=== PATIENT | female | born 1980 | race Caucasian/White ===

== ENCOUNTER 2022-10-12 16:20 | Outpatient (OUT) | payer BC, SELFPAY ==
--- NOTE | 2022-10-12 | XR_ITS ---
[facility] [place] [id number] Patient Name: LAKEISHA STOCKTON MRN: [id number] date: 1980 Sex: F Assigned Patient Location: [facility] Current Patient Location: [facility] Accession/Order Number: [id number] Exam Date: 10/12/2022 16:38 Report Date: 10/12/2022 17:23 At the request of: MIKE GARCIA Procedure: XR hand KATHERYN min 3v EXAM: XR hand KATHERYN min 3v HISTORY: RA COMPARISON: None. TECHNIQUE: AP and lateral views of the bilateral hands were obtained. FINDINGS/IMPRESSION: Normal bony alignment and joint spaces are preserved without evidence of acute fracture, subluxation, significant degenerative or erosive changes. Electronically authenticated by: HAIM OCAMPO Date: 10/12/2022 17:23
== END 2022-10-12 16:21 | disposition home or self-care (01) ==
LOC: RAD 16:25
PROVIDERS: PCP Family Medicine; Visit Provider Internal Medicine Rheumatology
DX: M79.642 Pain in left hand (principal); M79.641 Pain in right hand
CPT/HCPCS: 73130

== ENCOUNTER 2024-01-20 15:48 | Outpatient (OUT) | payer BC, SELFPAY ==
--- NOTE | 2024-01-20 | XR_ITS ---
[facility] [place] [id number] Patient Name: LAKEISHA STOCKTON MRN: [id number] date: 1980 Sex: F Assigned Patient Location: [facility] Current Patient Location: Accession/Order Number: [id number] Exam Date: 01/20/2024 16:10 Report Date: 01/22/2024 05:18 At the request of: MINDI MICHELLE Procedure: XR lumbar spine 2-3V EXAMINATION: XR lumbar spine 2-3V HISTORY: LT Lumbar radiculopathy M54.16 COMPARISON: No relevant comparison available. FINDINGS: BONES: Suspect L5 pars interarticularis defects with suggestion of a fracture line. No anterior listhesis of L5 on S1. Normal height and alignment of vertebral bodies. Mild degenerative facet arthropathy L5-S1. DISC SPACES: No significant disc height narrowing, subluxation, or endplate abnormality. PARASPINOUS: Negative. No paraspinous abnormality is seen. OTHER: Negative. XR/XR lumbar spine 2-3V IMPRESSION: 1. No appreciable acute abnormality. 2. Suspect L5 pars interarticularis defects, but no listhesis or change in alignment. 3. No significant degenerative disc disease. Electronically authenticated by: INÉS CUNNINGHAM Date: 01/22/2024 05:18
== END 2024-01-20 15:49 | disposition home or self-care (01) ==
LOC: RAD 15:51
PROVIDERS: PCP Family Medicine; Visit Provider Family Medicine
DX: M54.16 Radiculopathy, lumbar region (principal)
CPT/HCPCS: 72100

== ENCOUNTER 2024-02-06 14:34 | Outpatient (OUT) | payer BC, SELFPAY ==
[2024-02-06 15:01] LABS: Anion Gap 10.5; BUN Creatinine Ratio 8.3; Calcium 8.7 mg/dL (8.5-10.1); Chloride 105 mmol/L (98-107); Estimated GFR (African America >60 (>=60 mL/min/1.73m^2); Estimated GFR (Non-African Ame 55 (>=60 mL/min/1.73m^2); Glucose 102 mg/dL (74-106); Potassium 3.5 mmol/L (3.5-5.1); Sodium 140 mmol/L (136-145)
== END 2024-02-06 14:35 | disposition home or self-care (01) ==
LOC: LAB 14:35
PROVIDERS: PCP Family Medicine
DX: E87.6 Hypokalemia (principal)
CPT/HCPCS: 36415; 80048

== ENCOUNTER 2024-02-28 08:18 | Emergency (ER) | payer BC, SELFPAY ==
[2024-02-28] VITALS (8 sets, daily range): BP systolic 124–181; BP diastolic 78–132; PULSE 72–142; TEMP 36.8; O2SAT 95–100; BMI 27.4
--- NOTE | 2024-02-28 08:29 | ECG_ITS ---
[facility] Test Date: 2024-02-28 Pat Name: LAKEISHA STOCKTON Department: Room: - Gender: Female Director Global Development: : 1980 Requested By: MINDI MICHELLE Order Number: [id number] Reading MD: PHILIPP LOWERY Measurements Intervals [place] Rate: 98 P: 47 AL: 152 QRS: -12 QRSD: 68 T: 62 QT: 332 QTc: 387 Interpretive Statements 1100 Sinus rhythm 1108 Marked sinus arrhythmia 8102 Low QRS voltage in chest leads 9150 abnormal ECG No previous ECG available for comparison Electronically Signed On 02-28-2024 19:47:00 EST by PHILIPP LOWERY
--- NOTE | 2024-02-28 08:38 | ED_ITS ---
HPI HPI - General Adult General Chief complaint: Anxiety Stated complaint: MIGRANE DIZZINESS Time Seen by Provider: 02/28/24 08:25 Source: patient Mode of arrival: walk-in Limitations: no limitations History of Present Illness HPI narrative: 43-year-old female presents to the emergency department for a headache. The patient states she woke up with it this morning, she did not have it last night when she went to bed. No trauma fever or stiff neck. She has been having these headaches for years. She had COVID 4 years ago and since then has had bodyaches including pain in her hips. She has seen numerous specialist at the [facility] for this issue. Related Data Home Medications ?Medication ?Instructions ?Recorded ?Confirmed amoxicillin 500 mg capsule 500 mg PO TID 02/28/24 02/28/24 Allergies Allergy/AdvReac Type Severity Reaction Status Date / Time No Known Drug Allergies Allergy Verified 02/28/24 08:23 Opioid HPI Opioid Management Most Recent Opioid Data: Last Pain Scale 0 02/28/24 09:47 02/28/24 Last ED Pain Assessment 02/28/24 09:47 Last MAR Pain Assessment 02/28/24 08:56 Review of Systems ROS Narrative A ten point review of systems is negative except as noted above. Exam Narrative Exam Narrative: Nurses note and vital signs reviewed and patient is not hypoxic. General: The patient appears in no apparent distress. Patient is tearful Skin: Warm, dry, no pallor noted. There is no rash noted. Head: Normocephalic, atraumatic; neck supple, no nuchal rigidity Eye: Normal conjunctiva, no drainage, EOMI. PERRL Ears, Nose, Mouth, and Throat: oral mucosa is moist. Nares patent. Cardiovascular: Regular Rate and Rhythm Respiratory: Patient is in no distress, no accessory muscle use, lungs are clear to auscultation, no wheezing, rales or rhonchi Back: non-tender GI: Soft and nontender Musculoskeletal: The patient has no evidence of calf tenderness, no pitting edema, symmetrical pulses noted bilaterally Neurological: A&O, normal speech Psychiatric: Cooperative Constitutional Vital Signs, click to edit/add: Last Vital Signs Temp 98.3 F 02/28/24 08:23 Pulse 72 02/28/24 09:47 Resp 16 02/28/24 09:47 BP 124/78 02/28/24 09:47 Pulse Ox 99 01/14/25 09:47 O2 Del Method Room Air 02/28/24 09:47 Course Vital Signs Vital signs: Vital Signs Temperature 98.3 F 02/28/24 08:23 Pulse Rate 142 H 02/28/24 08:23 Respiratory Rate 24 H 02/28/24 08:23 Blood Pressure 146/82 H 02/28/24 08:23 Pulse Oximetry 100 02/28/24 08:23 Oxygen Delivery Method Room Air 02/28/24 08:23 Temperature 98.3 F 02/28/24 08:23 Pulse Rate 72 02/28/24 09:47 Respiratory Rate 16 02/28/24 09:47 Blood Pressure 124/78 02/28/24 09:47 Pulse Oximetry 99 02/28/24 09:47 Oxygen Delivery Method Room Air 02/28/24 09:47 Medical Decision Making MDM Narrative Medical decision making narrative: Blood work is normal. Her symptoms resolved completely with the medications given, Toradol, Solu-Medrol, Benadryl, and Zofran. She was also given IV fluids. She is asymptomatic and is able to be discharged home. I have no clinical suspicion of meningitis or acute intracranial pathology. Treatment diagnosis and follow-up were discussed with the patient. Differential Diagnosis Differential Diagnosis: Migraine headache, anxiety, intracranial hemorrhage, meningitis Lab Data Lab results reviewed: Yes I reviewed the patient's lab results Labs: Lab Results 02/28/24 Range/Units 08:45 WBC 6.4 (4.0-11.0) 10^3/uL RBC 4.93 (4.20-5.40) 10^6/uL Hgb 15.0 (12.0-16.0) g/dL Hct 44.0 (36.0-48.0) % MCV 89.2 (81.0-99.0) fL MCH 30.4 (26.7-34.0) pg MCHC 34.1 (29.9-35.2) g/dL RDW 12.2 (11.0-15.0) % Plt Count 279 (150-450) 10^3/uL MPV 9.0 L (9.5-13.5) fL Neut % (Auto) 55.5 (43.0-75.0) % Lymph % (Auto) 39.2 (20.5-60.0) % [place] % (Auto) 4.0 (1.7-12.0) % Eos % (Auto) 0.8 L (0.9-7.0) % Baso % (Auto) 0.3 (0.2-2.0) % Neut # (Auto) 3.6 (1.4-6.5) 10^3/uL Lymph # (Auto) 2.5 (1.2-3.8) 10^3/uL [place] # (Auto) 0.3 (0.3-0.8) 10^3/uL Eos # (Auto) 0.1 (0.0-0.7) 10^3/uL Baso # (Auto) 0.0 (0.0-0.1) 10^3/uL Abs Immat Gran (auto) 0.01 (0.00-0.03) 10^3/uL Imm/Tot Granulo (auto) 0.2 (0.0-0.5) % Sodium 141 (136-145) mmol/L Potassium 3.5 (3.5-5.1) mmol/L Chloride 105 (98-107) mmol/L Carbon Dioxide 28.2 (21.0-32.0) mmol/L Anion Gap 11.3 BUN 12.0 (7.0-18.0) mg/dL Creatinine 1.11 H (0.55-1.02) mg/dL Est GFR ( Amer) >60 (>=60 mL/min/1.73m^2) Est GFR (Non-Af Amer) 53 L (>=60 mL/min/1.73m^2) BUN/Creatinine Ratio 10.8 Glucose 117 H (74-106) mg/dL Calcium 8.6 (8.5-10.1) mg/dL Discharge Plan Discharge Chief Complaint: Anxiety Clinical Impression: Headache Patient Disposition: Home, Self-Care Time of Disposition Decision: 09:56 Condition: Good Mode of Transportation: Private Vehicle Prescriptions / Home Meds: No Action amoxicillin 500 mg capsule 500 mg PO TID Print Language: Chinese Instructions: Acute Headache (ED) Referrals: Jenna Lambert MD [Primary Care Provider] - 1 week
--- OUTSIDE RECORDS SUMMARY | 2024-02-28 08:48 | XMS_ITS | CCD ---
Author Organization [facility] ion Partnership [facility] Care Team Providers Care Flour Mixer Name Role Phone Viviana PRESTON, Mindi Primary Care Provider MINDI MICHELLE Primary Care Unavailable Mindi Michelle MD Primary Care Provider Gustavo SIMS.SIGNALMAN, Aysha Unavailable FAWWAD, RIVERO H Admitting Unavailable FAWWAD, RIVERO H Attending Unavailable FAWWAD, RIVERO H Primary Care Unavailable CHERLY, DR SARAH Goodson Consulting Unavailable FAWWAD, RIVERO H Consulting Unavailable MICHELLE, DR MINDI Reeves Admitting Unavailable MICHELLE, DR MINDI Reeves Attending Unavailable FAWWAD, RIVERO H Primary Care Unavailable CHERYL, DR SARAH Goodson Consulting Unavailable MICHELLE, DR MINDI Reeves Consulting Unavailable FAWWAD, RIVERO H Admitting Unavailable FAWWAD, RIVERO H Attending Unavailable FAWWAD, RIVERO H Primary Care Unavailable DR INÉS CUNNINGHAM Consulting Unavailable FAWWAD, RIVERO H Consulting Unavailable FAWWAD, RIVERO H Admitting Unavailable FAWWAD, RIVERO H Attending Unavailable VIVIANA, DR MINDI Reeves Primary Care Unavailable FAWWAD, RIVERO H Consulting Unavailable FAWWAD, RIVERO H Admitting Unavailable FAWWAD, RIVERO H Attending Unavailable FAWWAD, RIVERO H Primary Care Unavailable FAWWAD, RIVERO H Consulting Unavailable FAWWAD, RIVERO H Admitting Unavailable FAWWAD, RIVERO H Attending Unavailable FAWWAD, RIVERO H Primary Care Unavailable FAWWAD, RIVERO H Admitting Unavailable FAWWAD, RIVERO H Attending Unavailable FAWWAD, RIVERO H Primary Care Unavailable FAWWAD, RIVERO H Admitting Unavailable FAWWAD, RIVERO H Attending Unavailable FAWWAD, RIVERO H Primary Care Unavailable DR SARAH LUNA V Consulting Unavailable STEPHANIE, RIVERO H Consulting Unavailable Liyah Francis Unavailable Mindi Michelle MD Primary Care Provider Gustavo COPE, Aysha Unavailable Shaikh Gillespie MD Unavailable Mindi Michelle Unavailable Cassandra Felipa Unavailable Mindi Michelle Primary Care Unavailable Scott Martinez Attending Unavailable Scott Martinez Admitting Unavailable Liyah Francis Attending Unavailable Liyah Francis Admitting Unavailable Mindi Michelle MD Primary Care Provider VIVIANA MINDI E Referring Unavailable MICHELLE, MINDI E Primary Care Unavailable JOSE LUISML BORDEN Attending Unavailable MICHELLE, MINDI E Referring Unavailable MICHELLE, MINDI E Primary Care Unavailable JOSE LUIS, ML Durán Attending Unavailable MICHELLE, MINDI E Referring Unavailable MICHELLE, MINDI E Primary Care Unavailable JOSE LUIS, ML Durán Attending Unavailable MICHELLE, MINDI E Referring Unavailable MICHELLE, MINDI E Primary Care Unavailable JOSE LUIS, ML Durán Attending Unavailable MICHELLE, MINDI E Referring Unavailable MICHELLE, MINDI E Primary Care Unavailable JOSE LUIS, ML Durán Attending Unavailable MICHELLE, MINDI E Referring Unavailable MICHELLE, MINDI E Primary Care Unavailable JOSE LUIS, ML Durán Attending Unavailable MICHELLE, MINDI E Referring Unavailable MICHELLE, MINDI E Primary Care Unavailable JOSE LUIS, ML Durán Attending Unavailable MICHELLE, MINDI E Referring Unavailable MICHELLE, MINDI E Primary Care Unavailable JOSE LUSI, ML Durán Attending Unavailable CLARA, RUI BRISEIDA Referring Unavaila ble CHEN BALLARD Attending Unavailable MICHELLE, MINDI E Primary Care Unavailable MICHELLE, MINDI E Primary Care Unavailable LOCHAN, RUI BRISEIDA Referring Unavaila ble LOCHAN RUI BRISEIDA Attending Unavaila ble MICHELLE, MINDI E Primary Care Unavailable Allergies Allergy Classification Reported Allergen(s) Allergy Type Date of Onset Reaction(s) Facility (6 sources) patient allergy list reviewed by nurse or physicia Propensity to adverse reactions 8 Comment:Done Syndero Other (6 sources) Allergies Reconciled Propensity to adverse reactions 2 Unknown Syndero Other Medications Current Medications Medication Drug Class(es) Dates Sig (Normalized) Sig (Original) amoxicillin 500 mg oral capsule (6 sources) Penicillin-class Antibacterial Start: 05-12-2022 take 1 capsule by mouth every eight hours Amoxicillin 500 MG 1 capsule Orally three times a day for 10 day(s) Apr, Active Start: 12-01-2018 take 1 tablet by thuy th every twelve hours Amoxicillin 875 MG 1 tablet Orally every 12 hrs for 7 days Nov, Not-Taking benzonatate 200 mg oral capsule (3 sources) Non-narcotic Antitussive Start: 05-12-2022 take 1 capsule by mouth every eight hours Benzonatate 200 MG 1 capsule Orally Three times a day Apr, Active 24 hr buPROPion hydrochloride 300 mg extended release oral tablet (20 sources) Aminoketone Start: 06-24-2023 take 1 tablet by mouth once daily in the morning Bupropion Hcl Active MG PO June 24, 2023 12:00am FreeTextSig: TAKE 1 TABLET BY MOUTH EVERY DAY IN THE MORNING FOR 90 DAYS; Note: Source Status: Start; Refills: 0; Qty: 90 Tablet; Provider: Viviana West ( ) Start: 01-05-2021 End: 01-25-2024 buPROPion XL (WELLBUTRIN XL) 150 mg 24 hr tablet 01/05/2021 01/25/2024 Discontinued (Discontinued by another Health Care Provider) buPROPion HCl ER (XL) 300 MG TAKE 1 TABLET BY MOUTH EVERY DAY IN THE MORNING FOR 90 DAYS for 90 Active Wellbutrin Activ e ciprofloxacin 3 mg/ml ophthalmic solution (3 sources) Quinolone Antimicrobial Start: 05-12-2022 take 1 drop(s) into the eye(s) every four hours Ciloxan 0.3 % 1 drop each eye every 4 hrs for 5 day(s) Apr, Active clonazePAM 0.5 mg oral tablet (20 sources) Benzodiazepine Start: 06-24-2023 take 1 tablet by mouth once daily as needed for anxiety Clonazepam Active 0.5 MG PO June 24, 2023 12:00am FreeTextSi tablet Orally Once a day, as needed for anxiety; Note: Source Status: Refill; Refills: 1; Provider: Viviana Reeves Start: 02-21-2023 take 1 tablet by thuy th once daily as needed for anxiety clonazePAM 0.5 MG 1 tablet Orally Once a day, as needed for anxiety for 30 days Feb, Active Start: 01-21-2023 take 1 tablet by thuy th once daily as needed for anxiety clonazePAM 0.5 MG 1 tablet Orally Once a day, as needed for anxiety for 30 days Jan, Active Start: 12-24-2022 take 1 tablet by thuy th once daily as needed for anxiety clonazePAM 0.5 MG 1 tablet Orally Once a day, as needed for anxiety for 30 days Dec, Active Start: 11-25-2022 take 1 tablet by thuy th once daily as needed for anxiety clonazePAM 0.5 MG 1 tablet Orally Once a day, as needed for anxiety for 30 days Nov, Active Start: 04-19-2021 take 1 tablet by thuy th once daily as needed for anxiety clonazePAM 0.5 MG 1 tablet Orally Once a day, as needed for anxiety for 30 days Sep, Active Comment on above: TAKE 1/2-1 TABLET ON CE DAILY NEEDED FOR ANXIETY Do not start before April 19, 2021. gabapentin 100 mg oral capsule (16 sources) Anti-epileptic Agent Start: 06-24-2023 take 1 capsule by mouth three times daily Gabapentin Active 100 MG PO Three times daily June 24, 2023 12:00am FreeTextSig: TAKE 1 CAPSULE BY MOUTH 3 TIMES A DAY; Note: Source Status: Taking; Refills: 2; Qty: 90 Capsule; Provider: Viviana West ( ) take 1 capsule by mo ut three times daily Gabapentin 100 MG TAKE 1 CAPSULE BY MOUT H 3 TIMES A DAY for 30 Active lisdexamfetamine dimesylate 40 mg oral capsule (17 sources) Central Nervous System Stimulant Start: 12-27-2023 take 1 capsule by mouth once daily in the morning lisdexamfetamine (VYVANSE) 40 mg capsule Take 40 mg by mouth every morning. 12/27/2023 Active Start: 04-29-2023 End: 05-31-2023 take 1 capsule by mouth once daily Lisdexamfetamine (Vyvanse) 30 mg capsule Active 30 MG PO Daily May 31, 2023 Start: 01-21-2023 take 1 capsule by mo uth every twenty-four hours Vyvanse 30 MG 1 capsule in the morning Orally Once a day for 30 days Jan, Active Start: 12-24-2022 take 1 capsule by mo uth every twenty-four hours Vyvanse 30 MG 1 capsule in the morning Orally Once a day for 30 days JUDY Dec, Active Start: 11-25-2022 take 1 capsule by mo uth every twenty-four hours Vyvanse 30 MG 1 capsule in the morning Orally Once a day for 30 days Nov, Active Start: 10-25-2022 take 1 capsule by mo uth every twenty-four hours Vyvanse 30 MG 1 capsule in the morning Orally Once a day for 30 days Oct, Active Start: 09-27-2022 take 1 capsule by mo uth every twenty-four hours Vyvanse 30 MG 1 capsule in the morning Orally Once a day for 30 days Sep, Active Start: 08-24-2022 take 1 capsule by mo uth every twenty-four hours Vyvanse 30 MG 1 capsule in the morning Orally Once a day for 30 days Aug, Active Start: 07-26-2022 take 1 capsule by mo uth every twenty-four hours Vyvanse 30 MG 1 capsule in the morning Orally Once a day for 30 days Jul, Active Start: 07-01-2022 take 1 capsule by mo uth every twenty-four hours Vyvanse 30 MG 1 capsule in the morning Orally Once a day for 30 days June, Active methylPREDNISolone 4 mg oral tablet (3 sources) Corticosteroid Start: 2021 Medrol 4 MG as directed Orally Nov, Active Naltrexone (2 sources) Opioid Antagonist Start: 02-02-2024 naltrexone capsule 1.5 mg (CPD) Indications: Diffuse pain , Chronic fatigue and malaise , Brain fog , Post-acute sequelae of COVID-19 (PASC) , Memory deficit Take 1 tablet (1.5 mg) per day for 3 days, then 2 tablets (3 mg) per day for 3 days, then 3 tablets (4.5 mg) per day until completing bottle. 90 capsule 02/02/2024 Active ondansetron 4 mg oral tablet (14 sources) Serotonin-3 Receptor Antagonist Start: 04-21-2023 End: 04-21-2023 take 4 mg by mouth three times daily Ondansetron Hcl Active 4 MG PO Three times daily April 21, 2023 10:33am Start: 07-01-2022 take 1 tablet by thuy th three times daily as needed Ondansetron HCl 4 MG 1 tablet Orally tid prn for 4 June, Active microencapsulated potassium chloride 20 meq extended release oral tablet (1 source) Start: 01-27-2024 End: 01-30-2024 take 2 tablets by mouth once daily potassium chloride ER (KLOR-CON) 20 mEq tablet Indications: Low serum potassium , Abnormal laboratory test result Take 2 tablets by mouth once daily for 3 days. 6 tablet 01/27/2024 01/30/2024 Active rizatriptan 10 mg oral tablet (20 sources) Serotonin-1b and Serotonin-1d Receptor Agonist Start: 12-09-2020 take 1 tablet by mouth every two hours as needed for headache rizatriptan (MAXALT) 10 mg tablet Indications: Migraine without aura and without status migrainosus, not intractable Take 1 tablet by mouth as needed. AT ONSET OF HEADACHE. MAY REPEAT AFTER 2 HOURS. DO NOT EXCEED 30 MG PER DAY. 9 tablet 1 12/09/2020 Active Comment on above: Take 1 tablet by thuy th as needed. AT ONSET OF HEADACHE. MAY REPEAT AFTER 2 HOURS. DO NOT EXCEED 30 MG PER DAY. Completed/Discontinued Medications Medication Drug Class(es) Dates Sig (Normalized) Sig (Original) [id number] 200 actuat albuterol 0.09 mg/actuat metered dose inhaler (3 sources) beta2-Adrenergi c Agonist Start: 12-01-2018 take 2 puff(s) by inhalation every four hours as needed Albuterol Sulfate HFA 108 (90 Base) MCG/ACT 2 puffs as needed Inhalation every 4 hrs Nov, Not-Taking 24 hr amphetamine aspartate 3.75 mg / amphetamine sulfate 3.75 mg / dextroamphetamine saccharate 3.75 mg / dextroamphetamine sulfate 3.75 mg extended release oral capsule (5 sources) Central Nervous System Stimulant Start: 04-21-2023 End: 04-29-2023 take 1 capsule by mouth once daily, then take 1 capsule by mouth every twenty-four hours Dextroamphetamine- Amphetamine (Adderall Xr) 15 mg capsule,extended release 24hr Discontinued 15 MG PO Daily April 21, 2023 April 29, 2023 10:46am Start: 02-28-2023 [facility] Adderall XR 15 MG 1 capsule in the morning Orally Once a day for 30 days Feb, Active cefTRIAXone (16 sources) Cephalosporin Antibacterial Start: 01-13-2017 ROCEPHIN per 250 mg Dec, 250 mg codeine phosphate 2 mg/ml / guaiFENesin 20 mg/ml oral solution (3 sources) Opioid Agonist Start: 12-01-2018 take 10 mL by mouth every six hours as needed guaiFENesin AC 100-10 MG/5ML 10 ml as needed Orally every 6 hrs Nov, Not-Taking cyclobenzaprine (3 sources) Muscle Relaxant Flexeril Not-Taking FLUoxetine 40 mg oral capsule (8 sources) Serotonin Reuptake Inhibitor Start: 08-25-2021 End: 01-25-2024 take 1 capsule by mouth once daily FLUoxetine (PROZAC) 40 mg capsule Indications: Generalized anxiety disorder TAKE 1 CAPSULE BY MOUTH ONCE DAILY 90 capsule 1 02/22/2022 01/25/2024 Discontinued (Discontinued by another Health Care Provider) Start: 06-03-2020 FLUoxetine (TX OZAC) capsule 20 mg Comment on above: [facility] TAKE 1 CAPSULE BY [facility] ONCE DAILY fluticasone propionate 0.05 mg/actuat metered dose nasal spray (3 sources) Corticosteroid Start: 12-02-19 take 1 spray(s) nasal route once daily Fluticasone Propionate 50 MCG/ACT 1 spray in each nostril Nasally Once a day for 21 days Nov, Not-Taking oseltamivir 75 mg oral capsule (3 sources) Neuraminidase Inhibitor Start: 12-02-19 take 1 capsule by mouth every twelve hours Tamiflu 75 MG 1 capsule Orally Twice a day for 5 day(s) Nov, Not-Taking propranolol hydrochloride 20 mg oral tablet (7 sources) beta-Adrenergic Anuradha Start: 12-10-19 End: 01-25-20 take 1 tablet by mouth twice daily propranolol (INDERAL) 20 mg tablet Take 1 tablet by mouth twice daily. 60 tablet 1 12/09/2020 01/25/2024 Discontinued (Discontinued by another Health Care Provider) Comment on above: Take 1 tablet by thuy th twice daily. 50 ml sodium chloride 9 mg/ml injection (1 source) Start: 06-04-19 End: 06-04-19 0.9 % sodium chloride bolus topiramate 50 mg oral tablet (8 sources) Start: 07-28-19 End: 01-25-20 take 1 tablet by mouth once daily topiramate (TOPAMAX) 50 mg tablet Indications: Generalized anxiety disorder Take 1 tablet by mouth once daily. 90 tablet 1 09/03/2021 01/25/2024 Discontinued (Discontinued by another Health Care Provider) Comment on above: TAKE 1 TABLET BY THUY TH EVERY DAY Take 1 tablet by thuy th once daily. ZOLMitriptan (3 sources) Serotonin-1b and Serotonin-1d Receptor Agonist Zomig Not-Taking Problems Active Problems Problem Classification Problem Date Documented Date Episodic/Chronic Adjustment disorders (1 source) Adjustment disorder with mixed anxiety and depressed mood; Translations: [Adjustment disorder with mixed anxiety and depressed mood] Onset: 03-23-2023 Chronic Anxiety disorders (17 sources) Generalized anxiety disorder; Translations: [Generalized anxiety disorder] Chronic Attention-deficit, conduct, and disruptive behavior disorders (3 sources) Attention-deficit hyperactivity disorder, unspecified type; Translations: [Attention deficit disorder with hyperactivity] 04-29-2023 Chronic Bacterial infection; unspecified site (6 sources) Chlamydial infection; Translations: [Chlamydial infection, unspecified] Episodic Disorders usually diagnosed in infancy, childhood, or adolescence (4 sources) Adult attention deficit hyperactivity disorder ; Translations: [Other specified behavioral and emotional disorders with onset usually occurring in childhood and adolescence] Chronic Essential hypertension (16 sources) Elevated blood pressure; Translations: [Essential (primary) hypertension] Chronic Fluid and electrolyte disorders (1 source) Low serum potassium level - finding; Translations: [Hypokalemia] 01-27-2024 Episodic Genitourinary symptoms and ill-defined conditions (6 sources) Dysuria; Translations: [Dysuria] Episodic Headache; including migraine (20 sources) Chronic intractable migraine without aura; Translations: [Chronic migraine without aura, intractable, without status migrainosus] Onset: 08-22-2006 09-21-2019 Chronic Inflammation; infection of eye (except that caused by tuberculosis or sexually transmitteddisease) (1 source) Unspecified conjunctivitis Episodic Inflammatory diseases of female pelvic organs (6 sources) Acute vaginitis; Translations: [Acute vaginitis] Episodic Malaise and fatigue (4 sources) Chronic fatigue, unspecified; Translations: [Malaise and fatigue] Onset: 12-11-2020 01-25-2024 Chronic Malaise and fatigue (11 sources) Other fatigue; Translations: [Fatigue] Onset: 12-04-2020 Episodic Menstrual disorders (6 sources) Excessive and frequent menstruation; Translations: [Excessive and frequent menstruation with regular cycle] Onset: 01-23-2015 Chronic Miscellaneous mental health disorders (1 source) Primary insomnia; Translations: [PRIMARY INSOMNIA] Onset: 12-25-2020 Chronic Mood disorders (7 sources) Dysthymia; Translations: [Dysthymic disorder] Onset: 01-23-2015 Chronic Mood disorders (1 source) Disturbance in mood; Translations: [Emotional lability] 01-25-2024 Episodic Other and unspecified benign neoplasm (6 sources) Benign neoplasm of pituitary gland; Translations: [Benign neoplasm of pituitary gland] Episodic Other circulatory disease (6 sources) Elevated blood-pressure reading without diagnosis of hypertension; Translations: [Elevated blood-pressure reading, without diagnosis of hypertension] Episodic Other connective tissue disease (5 sources) Pain in right hand; Translations: [PAIN IN RIGHT HAND] Onset: 06-16-2021 Episodic Other connective tissue disease (5 sources) Unspecified symptoms and signs involving the nervous system; Translations: [UNS SYMPTOMS SIGNS INVOLVING NS] Onset: 04-02-2021 Episodic Other connective tissue disease (6 sources) Pain in right hand; Translations: [Pain in right hand] Episodic Other connective tissue disease (2 sources) Disorder of nervous system; Translations: [Unspecified symptoms and signs involving the nervous system] Episodic Other connective tissue disease (1 source) Neuralgia; Translations: [Neuralgia and neuritis, unspecified] 01-25-2024 Episodic Other connective tissue disease (1 source) Sensation of heaviness in limbs; Translations: [Other symptoms and signs involving the musculoskeletal system] 01-25-2024 Episodic Other endocrine disorders (6 sources) Hyperpituitarism; Translations: [Hyperfunction of pituitary gland, unspecified] Onset: 10-20-2007 Chronic Other hereditary and degenerative nervous system conditions (6 sources) Other specified forms of tremor; Translations: [OTHER SPECIFIED FORMS OF TREMOR] Onset: 03-30-2021 Chronic Other hereditary and degenerative nervous system conditions (12 sources) Resting tremor; Translations: [Other specified forms of tremor] Chronic Other hereditary and degenerative nervous system conditions (6 sources) Tremor; Translations: [Other specified forms of tremor] Chronic Other infections; including parasitic (2 sources) Late effects of other and unspecified infectious and parasitic diseases; Translations: [Post-acute sequelae of COVID-19 (PASC)] 01-25-2024 Chronic Other lower respiratory disease (1 source) Nodule of lung; Translations: [Solitary pulmonary nodule] Episodic Other lower respiratory disease (6 sources) Solitary nodule of lung; Translations: [Solitary pulmonary nodule] Episodic Other lower respiratory disease (6 sources) Cough; Translations: [Cough, unspecified] Episodic Other lower respiratory disease (6 sources) Disorder of respiratory system; Translations: [Respiratory disorder, unspecified] Episodic Other nervous system disorders (1 source) Poor concentration; Translations: [Attention and concentration deficit] 01-25-2024 Chronic Other nervous system disorders (1 source) Cognitive deficit in communication skills; Translations: [Cognitive communication deficit] 01-25-2024 Chronic Other nervous system disorders (10 sources) Other symptoms and signs involving cognitive functions and awareness; Translations: [OTH SX SIGNS COG FUNC AND AWARENESS] Onset: 03-30-2021 Episodic Other nervous system disorders (8 sources) Impaired cognition; Translations: [Other symptoms and signs involving cognitive functions and awareness] 01-25-2024 Episodic Other nervous system disorders (2 sources) Burning sensation; Translations: [Other disturbances of skin sensation] 01-25-2024 Episodic Other nervous system disorders (1 source) Paresthesia; Translations: [Paresthesia of skin] 02-25-2024 Episodic Other non-traumatic joint disorders (1 source) Pain in unspecified joint; Translations: [Pain in unspecified joint] Onset: 10-05-2022 Episodic Other non-traumatic joint disorders (1 source) Multiple joint pain; Translations: [Pain in unspecified joint] 01-25-2024 Episodic Other non-traumatic joint disorders (1 source) Hip pain; Translations: [Pain in unspecified hip] 01-25-2024 Episodic Other nutritional; endocrine; and metabolic disorders (18 sources) Body mass index 25-29 - overweight; Translations: [Body mass index (BMI) 29.0-29.9, adult] Onset: 06-19-2015 Episodic Other nutritional; endocrine; and metabolic disorders (12 sources) Overweight; Translations: [Overweight] Onset: 06-19-2015 Episodic Other screening for suspected conditions (not mental disorders or infectious disease) (4 sources) Encounter for screening mammogram for malignant neoplasm of breast; Translations: [ENC SCR MAMMO MALIG NEOPLASM BREAST] Onset: 11-05-2021 Episodic Other upper respiratory infections (6 sources) Acute sinusitis; Translations: [Acute sinusitis, unspecified] Episodic Otitis media and related conditions (1 source) Otitis media, unspecified, left ear Episodic Pneumonia (except that caused by tuberculosis or sexually transmitted disease) (6 sources) Pneumonia; Translations: [Pneumonia, unspecified organism] Episodic Residual codes; unclassified (4 sources) Obstructive sleep apnea (adult) (pediatric); Translations: [OBSTRUCTIVE SLEEP APNEA] Onset: 01-05-2021 Chronic Residual codes; unclassified (6 sources) Sleep apnea; Translations: [Sleep apnea, unspecified] Chronic Residual codes; unclassified (1 source) Hypersomnia; Translations: [Hypersomnia, unspecified] 01-25-2024 Chronic Residual codes; unclassified (1 source) Family history of malignant neoplasm of digestive organs; Translations: [FAM HX MALIG NEOPLASM DIGESTIV ORGN] Onset: 11-10-2021 Episodic Residual codes; unclassified (1 source) Family history of malignant neoplasm of breast; Translations: [FAMILY HX MALIG NEOPLASM OF BREAST] Onset: 11-10-2021 Episodic Residual codes; unclassified (6 sources) Family history of malignant neoplasm of gastrointestinal tract; Translations: [Family history of malignant neoplasm of digestive organs] Episodic Residual codes; unclassified (2 sources) Diffuse pain; Translations: [Pain, unspecified] 01-25-2024 Episodic Residual codes; unclassified (1 source) Disturbance in sleep behavior; Translations: [Sleep disorder, unspecified] 01-25-2024 Episodic Residual codes; unclassified (1 source) Activity intolerance; Translations: [Other general symptoms and signs] 01-25-2024 Episodic Residual codes; unclassified (2 sources) Memory impairment; Translations: [Other amnesia] 01-25-2024 Episodic Residual codes; unclassified (1 source) Pain, unspecified; Translations: [Diffuse pain] Onset: 02-02-2024 Episodic Sprains and strains (1 source) Strain of unspecified muscle, fascia and tendon at wrist and hand level, right hand, initial encounter Episodic Thyroid disorders (10 sources) Thyroid nodule; Translations: [Nontoxic single thyroid nodule] Onset: 09-18-2010 09-18-2010 Chronic Unclassified (2 sources) CONTACT W/AND (SUSP) EXPOS COVID-19; Translations: [CONTACT W/AND (SUSP) EXPOS COVID-19] Onset: 02-15-2021 Unclassified (1 source) Pain in right hand; Translations: [Pain in right hand] Onset: 2021 Unclassified (1 source) Post-acute sequelae of COVID-19 (PASC); Translations: [Post-acute sequelae of COVID-19 (PASC)] Onset: 02-02-2024 Viral infection (1 source) Disease caused by 2019-nCoV; Translations: [COVID-19] Episodic Viral infection (13 sources) COVID-19; Translations: [Disease caused by 2019-nCoV] Onset: 02-15-2021 Past or Other Problems Problem Classification Problem Date Documented Date Episodic/Chronic Administrative/socia l admission (6 sources) Repeated prescription; Translations: [Encounter for issue of repeat prescription] Onset: 07-16-2015 Episodic Cardiac dysrhythmias (6 sources) Tachycardia; Translations: [Tachycardia, unspecified] Onset: 03-15-2017 Episodic Nonmalignant breast conditions (12 sources) Lactocele; 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] Onset: 08-22-2006 Episodic Other and unspecified benign neoplasm (10 sources) Pituitary adenoma; Translations: [Benign neoplasm of pituitary gland] Onset: 11-05-2009 11-05-2009 Episodic Other and unspecified benign neoplasm (1 source) Benign neoplasm of pituitary gland; Translations: [BENIGN NEOPLASM OF PITUITARY GLAND] Onset: 04-02-2021 Episodic Other and unspecified benign neoplasm (6 sources) Benign neoplasm of pituitary gland and craniopharyngeal duct; 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)] Onset: 12-01-2012 Episodic Other complications of (6 sources) High risk ; Translations: [Supervision of high risk , unspecified, unspecified trimester] Onset: 10-06-2006 Episodic Other lower respiratory disease (4 sources) Respiratory disorder, unspecified; Translations: [RESPIRATORY DISORDER UNSPECIFIED] Onset: 03-24-2021 Episodic Other nervous system disorders (6 sources) Tremor; Translations: [Tremor, unspecified] Onset: 03-15-2017 Episodic Residual codes; unclassified (6 sources) Insomnia; Translations: [Insomnia, unspecified] Onset: 12-01-2012 Episodic Unclassified (1 source) CONTACT W/AND (SUSP) EXPOS COVID-19; Translations: [CONTACT W/AND (SUSP) EXPOS COVID-19] Onset: 02-09-2021 Unclassified (1 source) Acute cough R05.1 Unclassified (2 sources) Vigu-SIYAL-52 condition U09.9 Unclassified (6 sources) 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 Unclassified (6 sources) Surveillance of intrauterine device contraception done; Translations: [Surveillance of previously prescribed intrauterine contraceptive device] Onset: 10-20-2007 Unclassified (6 sources) Encounter for insertion or removal of intrauterine contraceptive device; Translations: [Encounter for insertion or removal of intrauterine contraceptive device] Onset: 07-04-2007 Unclassified (6 sources) Routine follow-up; Translations: [Routine follow-up] Onset: 06-13-2007 Results Test Name Value Interpretation Reference Range Facility 25(OH)D3 [facility] 2023 25-hydroxyvitamin D3 [Mass/Vol] 21.4 ng/mL Low 31.0-80.0 [facility] Comment on above: Order Comment: Speci men Type: BLOOD SPECIMEN Ordering Facility: [facility] Address: [address] [place] [address] Performed By: #### 2 276-4, 68632-6, 76321-4, 3016-3 #### [facility] CLIA [id number] [address] [place] [address] [place] CBC W Auto Differential pane l (Bld)on 01-25-2024 Basophils (Bld) [#/Vol] 0.05 10*3/uL Normal <0.11 [facility] Comment on above: Order Comment: Speci men Type: BLOOD SPECIMEN Ordering Facility: [facility] Address: [address] [place] [address] Performed By: #### 5 7021-8 #### [facility] CLIA [id number] [address] [place] [address] [place] Basophils/100 WBC (Bld) 0.5 % Normal [facility] Comment on above: Order Comment: Speci men Type: BLOOD SPECIMEN Ordering Facility: [facility] Address: [address] [place] [address] Performed By: #### 5 7021-8 #### [facility] CLIA [id number] [address] [place] [address] [place] Differential cell count method Nom (Bld) Auto Normal [facility] Comment on above: Order Comment: Speci men Type: BLOOD SPECIMEN Ordering Facility: [facility] Address: [address] [place] [address] Performed By: #### 5 7021-8 #### [facility] CLIA [id number] [address] [place] [address] [place] Eosinophils (Bld) [#/Vol] 0.04 10*3/uL Normal <0.46 [facility] Comment on above: Order Comment: Speci men Type: BLOOD SPECIMEN Ordering Facility: [facility] Address: [address] [place] [address] Performed By: #### 5 7021-8 #### [facility] CLIA [id number] [address] [place] [address] [place] Eosinophils/100 WBC (Bld) 0.4 % Normal [facility] Comment on above: Order Comment: Speci men Type: BLOOD SPECIMEN Ordering Facility: [facility] Address: [address] [place] [address] Performed By: #### 5 7021-8 #### [facility] CLIA [id number] [address] [place] [address] [place] Erythrocyte distribution width (RBC) [Ratio] 13.1 % Normal 11.5-15.0 [facility] Comment on above: Order Comment: Speci men Type: BLOOD SPECIMEN Ordering Facility: [facility] Address: [address] [place] [address] Performed By: #### 5 7021-8 #### [facility] CLIA [id number] [address] [place] [address] [place] Hematocrit (Bld) [Volume fraction] 43.4 % Normal 36.0-46.0 [facility] Comment on above: Order Comment: Speci men Type: BLOOD SPECIMEN Ordering Facility: [facility] Address: [address] [place] [address] Performed By: #### 5 7021-8 #### [facility] CLIA [id number] [address] [place] [address] [place] Hemoglobin (Bld) [Mass/Vol] 14.3 g/dL Normal 11.5-15.5 [facility] Comment on above: Order Comment: Speci men Type: BLOOD SPECIMEN Ordering Facility: [facility] Address: [address] [place] [address] Performed By: #### 5 7021-8 #### [facility] CLIA [id number] [address] [place] [address] [place] Immature granulocytes (Bld) [#/Vol] 10*3/uL Normal <0.10 [facility] Comment on above: Order Comment: Speci men Type: BLOOD SPECIMEN Ordering Facility: [facility] Address: [address] [place] [address] Performed By: #### 5 7021-8 #### [facility] CLIA [id number] [address] [place] [address] [place] Immature granulocytes/100 WBC (Bld) 0.2 % Normal [facility] Comment on above: Order Comment: Speci men Type: BLOOD SPECIMEN Ordering Facility: [facility] Address: [address] [place] [address] Performed By: #### 5 7021-8 #### [facility] CLIA [id number] [address] [place] [address] [place] Lymphocytes (Bld) [#/Vol] 3.00 10*3/uL Normal 1.00-4.00 [facility] Comment on above: Order Comment: Speci men Type: BLOOD SPECIMEN Ordering Facility: [facility] Address: [address] [place] [address] Performed By: #### 5 7021-8 #### [facility] CLIA [id number] [address] [place] [address] [place] Lymphocytes/100 WBC (Bld) 32.2 % Normal [facility] Comment on above: Order Comment: Speci men Type: BLOOD SPECIMEN Ordering Facility: [facility] Address: [address] [place] [address] Performed By: #### 5 7021-8 #### [facility] CLIA [id number] [address] [place] [address] [place] MCH (RBC) [Entitic mass] 30.7 pg Normal 26.0-34.0 [facility] Comment on above: Order Comment: Speci men Type: BLOOD SPECIMEN Ordering Facility: [facility] Address: [address] [place] [address] Performed By: #### 5 7021-8 #### [facility] CLIA [id number] [address] [place] [address] [place] MCHC (RBC) [Mass/Vol] 32.9 g/dL Normal 30.5-36.0 [facility] Comment on above: Order Comment: Speci men Type: BLOOD SPECIMEN Ordering Facility: [facility] Address: [address] [place] [address] Performed By: #### 5 7021-8 #### [facility] CLIA [id number] [address] [place] [address] [place] MCV (RBC) [Entitic vol] 93.1 fL Normal 80.0-100.0 [facility] Comment on above: Order Comment: Speci men Type: BLOOD SPECIMEN Ordering Facility: [facility] Address: [address] [place] [address] Performed By: #### 5 7021-8 #### [facility] CLIA [id number] [address] [place] [address] [place] Monocytes (Bld) [#/Vol] 0.57 10*3/uL Normal <0.87 [facility] Comment on above: Order Comment: Speci men Type: BLOOD SPECIMEN Ordering Facility: [facility] Address: [address] [place] [address] Performed By: #### 5 7021-8 #### [facility] CLIA [id number] [address] [place] [address] [place] Monocytes/100 WBC (Bld) 6.1 % Normal [facility] Comment on above: Order Comment: Speci men Type: BLOOD SPECIMEN Ordering Facility: [facility] Address: [address] [place] [address] Performed By: #### 5 7021-8 #### [facility] CLIA [id number] [address] [place] [address] [place] Neutrophils (Bld) [#/Vol] 5.65 10*3/uL Normal 1.45-7.50 [facility] Comment on above: Order Comment: Speci men Type: BLOOD SPECIMEN Ordering Facility: [facility] Address: [address] [place] [address] Performed By: #### 5 7021-8 #### [facility] CLIA [id number] [address] [place] [address] [place] Neutrophils/100 WBC (Bld) 60.6 % Normal [facility] Comment on above: Order Comment: Speci men Type: BLOOD SPECIMEN Ordering Facility: [facility] Address: [address] [place] [address] Performed By: #### 5 7021-8 #### [facility] CLIA [id number] [address] [place] [address] [place] Nucleated RBC (Bld) [#/Vol] 10*3/uL Normal <0.01 [facility] Comment on above: Order Comment: Speci men Type: BLOOD SPECIMEN Ordering Facility: [facility] Address: [address] [place] [address] Performed By: #### 5 7021-8 #### [facility] CLIA [id number] [address] [place] [address] [place] Nucleated RBC/100 WBC (Bld) [Ratio] 0.0 /100 WBC Normal [facility] Comment on above: Order Comment: Speci men Type: BLOOD SPECIMEN Ordering Facility: [facility] Address: [address] [place] [address] Performed By: #### 5 7021-8 #### [facility] CLIA [id number] [address] [place] [address] [place] Platelet mean volume (Bld) [Entitic vol] 9.7 fL Normal 9.0-12.7 [facility] Comment on above: Order Comment: Speci men Type: BLOOD SPECIMEN Ordering Facility: [facility] Address: [address] [place] [address] Performed By: #### 5 7021-8 #### [facility] CLIA [id number] [address] [place] [address] [place] Platelets (Bld) [#/Vol] 307 10*3/uL Normal 150-400 [facility] Comment on above: Order Comment: Speci men Type: BLOOD SPECIMEN Ordering Facility: [facility] Address: [address] [place] [address] Performed By: #### 5 7021-8 #### [facility] CLIA [id number] [address] [place] [address] [place] RBC (Bld) [#/Vol] 4.66 10*6/uL Normal 3.90-5.20 [facility] Comment on above: Order Comment: Speci men Type: BLOOD SPECIMEN Ordering Facility: [facility] Address: [address] [place] [address] Performed By: #### 5 7021-8 #### [facility] CLIA [id number] [address] [place] [address] [place] WBC (Bld) [#/Vol] 9.33 10*3/uL Normal 3.70-11.00 [facility] Comment on above: Order Comment: Speci men Type: BLOOD SPECIMEN Ordering Facility: [facility] Address: [address] [place] [address] Performed By: #### 5 7021-8 #### [facility] CLIA [id number] [address] [place] [address] [place] CHROMIUM BLOODon 01-25-2024 Chromium (Bld) [Mass/Vol] 0.5 ug/L Normal <0.6 [facility] Comment on above: Order Comment: Speci men Type: BLOOD SPECIMEN Ordering Facility: [facility] Address: [address] [place] [address] Result Comment: This test was developed, and its performance characteristics determined by the [facility] Department of Pathology and Laboratory Medicine. It has not been cleared or approved by the FDA. The [facility] Department of Pathology and Laboratory Medicine is regulated under CLIA as qualified to perform high-complexity testing. This test is used for clinical purposes. It should not be regarded as investigational or for research. Performed By: #### C SALTY CHAMBERLAIN #### [facility] CLIA [id number] [address] [place] [address] [place] CNOVon 01-25-2024 CNOV Office Visit (PUMBHT) LAKEISHA JERRY ([id number]) 1980 F Date Time Provider Department 01/25/24 10:00 AM RUI [facility] During your visit today, we recorded the following information about you: Pulse Blood pressure Last Period 100/minute 129/88 01/04/24 Rui San APRN.SIGNALMAN 01/25/2024 11:12 AM Addendum Welcome to [facility]! The 'COV' represents SARS-CoV-2, also known as COVID-19. Our clinic's mission is to assess and guide individuals who are experiencing long-term effects of COVID-19 to care paths tailored to fit each person. We are a referral service. As a referral center for post-COVID related conditions, we cannot provide work, FMLA, disability or other forms, or surgical clearance. You will have an initial visit as well as one follow-up virtual visit in which all [facility] testing, imaging, and labs will be discussed. From there on it is expected that you continue to follow up with your PCP and the specialists established through this program. You will be sent questionnaires every 3 months for 1 year to monitor your progress. Once a questionnaire is completed, a member of our team may reach out to you to review. You just had your initial visit with the [facility] clinic! Next, you will be undergoing additional tests to further assess your current symptoms. Once you have these tests completed, you will have another visit to review these results. We will then direct you down the appropriate care path with a specialist for further treatment based on those results and your current symptoms. You may have your labs here today, or at any [facility], as a walk-in appointment. You do not need to fast for these labs. Labs should be completed no later than 10 days prior to our follow-up appointment. Failure to complete within that time frame may result in your follow-up visit being rescheduled. We will schedule you for our follow-up and help schedule consults as we are able today before you leave. We will help schedule the following, but here are the numbers should you need them: - You may call [phone] to reach Rheumatology. - You may call [phone] to reach Wellness (Integrative medicine). - You may call [phone] to reach Neurology, as well as the [facility]. Please refer to the separate Gazelle message for the link and instructions for the cognitive exam. Fatigue resources: [email or web address] [email or web address]-[email or web address] [email or web address]/health/jones freed/26111-cvivsjq -encephalomyelitis-- bgpqcxx-uvbqkhz-cqba antoine-me-cfs http://www.[facility].ca/h dxzjh-yoqs-qthb/Docu ments/post_covid-19_ fatigue.pdf https://www.[facility].nhs.uk/wp-whit nt/uploads//O H-090.91-Wqpg-IGVBS- -Leaflet.pdf https://[employer]/wp-content/upl oads//Using-s pyju-iojhul-iki-fat- igue.pdf I will see you in roughly 6-8 weeks for follow-up. - The [facility] Team Rui San APRN.ANTONIETA 01/25/2024 11:33 AM Signed [facility] Initial Evaluation Lakeisha Ambrosio presents to [facility] at the request of Self for evaluation of prolonged, > 28 days, symptoms attributed to COVID-19 infection. They have requested this consultation via eConsult and will be communicated to via the EMR or [place] Post Office Correspondence. HPI: Lakeisha Ambrosio is a 43 year old female with primary symptoms as below Positive COVID-19 Test: yes Date of Positive Test: 05/29/202001/2021 Description of their course of COVID-19 illness 1. Symptoms began on 05/2020 2. Hospitalization? No 3. Was the patient on oxygen? No 4. Was patient discharged on oxygen? No 5. Was there an ICU stay? No 6. Was the patient intubated? No 7. Were there any COVID-19 medications given? No 8. Were there significant complications from the patients COVID-19 Illness? No 9. Has the patient received the COVID Vaccine? NO COVID-19 Symptom Review Shortness of Breath or Dyspnea on Exertion not discussed Cough not discussed Chest discomfort/chest pain not discussed Palpitations not discussed Exertional intolerance Recurred persistent Fatigue Recurred persistent Dizziness not discussed Syncope or Near syncope not discussed Fever not discussed Joint pain/Body aches Recurred persistent Altered taste/smell not discussed Lack of concentration/brain fog Recurred persistent Memory deficits Recurred persistent Diarrhea or nausea not discussed Headaches not discussed Difficulty sleeping Recurred persistent HF Symptoms - Orthopnea/Edema not discussed Erectile Dysfunction N/A Changes in mood Present prior to COVID-19 infection and persistent Urinary Symptoms Never Most significant symptoms: Exertional intolerance Fatigue Sleep disturbances Bedtime around 8 PM Difficulty (more content not included)... Normal [facility] COPPER BLOODon 01-25-2024 Copper [Mass/Vol] 90 ug/dL Normal 80-155 [facility] Comment on above: Order Comment: Speci men Type: BLOOD SPECIMEN Ordering Facility: [facility] Address: [address] [place] [address] Result Comment: This test was developed, and its performance characteristics determined by the [facility] Department of Pathology and Laboratory Medicine. It has not been cleared or approved by the FDA. The [facility] Department of Pathology and Laboratory Medicine is regulated under CLIA as qualified to perform high-complexity testing. This test is used for clinical purposes. It should not be regarded as investigational or for research. Performed By: #### 2 276-4, 23272-8, 68137-1, 3016-3 #### [facility] CLIA [id number] [address] [place], [place] [address] [address] [place] CRP SerPl-mCncon 01-25-2024 CRP [Mass/Vol] mg/L Normal <0.9 [facility] Comment on above: Order Comment: Speci men Type: BLOOD SPECIMEN Ordering Facility: [facility] Address: [address] [place] [address] Performed By: #### 1 988-5, 2132-9, 2284-8 #### [facility] CLIA [id number] [address] [place] [address] [place] Comprehensive metabolic 2000 panelon 01-25-2024 Albumin [Mass/Vol] 4.4 g/dL Normal 3.9-4.9 [facility] Comment on above: Order Comment: Speci men Type: BLOOD SPECIMEN Ordering Facility: [facility] Address: [address] [place] [address] Performed By: #### 2 276-4, 10252-3, 87167-0, 3016-3 #### [facility] CLIA [id number] [address] [place] [address] [place] ALP [Catalytic activity/Vol] 112 U/L Normal 34-123 [facility] Comment on above: Order Comment: Speci men Type: BLOOD SPECIMEN Ordering Facility: [facility] Address: [address] [place] [address] Performed By: #### 2 276-4, 84610-2, 34600-6, 3016-3 #### [facility] CLIA [id number] [address] [place] [address] [place] ALT [Catalytic activity/Vol] 14 U/L Normal 7-38 [facility] Comment on above: Order Comment: Speci men Type: BLOOD SPECIMEN Ordering Facility: [facility] Address: [address] [place] [address] Performed By: #### 2 276-4, 74335-4, 33474-6, 3016-3 #### [facility] CLIA [id number] [address] [place] [address] [place] Anion gap [Moles/Vol] 16 mmol/L High 8-15 [facility] Comment on above: Order Comment: Speci men Type: BLOOD SPECIMEN Ordering Facility: [facility] Address: [address] [place] [address] Performed By: #### 2 276-4, 35045-9, 21353-6, 3016-3 #### [facility] CLIA [id number] [address] [place] [address] [place] AST [Catalytic activity/Vol] 18 U/L Normal 13-35 [facility] Comment on above: Order Comment: Speci men Type: BLOOD SPECIMEN Ordering Facility: [facility] Address: [address] [place] [address] Performed By: #### 2 276-4, 95633-8, 17355-0, 3016-3 #### [facility] CLIA [id number] [address] [place] [address] [place] Bilirubin [Mass/Vol] 0.3 mg/dL Normal 0.2-1.3 [facility] Comment on above: Order Comment: Speci men Type: BLOOD SPECIMEN Ordering Facility: [facility] Address: [address] [place] [address] Performed By: #### 2 276-4, 48305-9, 30486-0, 3016-3 #### [facility] CLIA [id number] [address] [place] [address] [place] Calcium [Mass/Vol] 9.5 mg/dL Normal 8.5-10.2 [facility] Comment on above: Order Comment: Speci men Type: BLOOD SPECIMEN Ordering Facility: [facility] Address: [address] [place] [address] Performed By: #### 2 276-4, 27691-6, 44492-1, 3016-3 #### [facility] CLIA [id number] [address] [place] [address] [place] Chloride [Moles/Vol] 106 mmol/L Normal 98-107 [facility] Comment on above: Order Comment: Speci men Type: BLOOD SPECIMEN Ordering Facility: [facility] Address: [address] [place] [address] Performed By: #### 2 276-4, 99917-8, 07794-4, 3016-3 #### [facility] CLIA [id number] [address] [place] [address] [place] CO2 [Moles/Vol] 23 mmol/L Normal 22-30 [facility] Comment on above: Order Comment: Speci men Type: BLOOD SPECIMEN Ordering Facility: [facility] Address: [address] [place] [address] Performed By: #### 2 276-4, 02516-9, 77775-9, 3016-3 #### [facility] CLIA [id number] [address] [place] [address] [place] Creatinine [Mass/Vol] 0.99 mg/dL High 0.58-0.96 [facility] Comment on above: Order Comment: Speci men Type: BLOOD SPECIMEN Ordering Facility: [facility] Address: [address] [place] [address] Performed By: #### 2 276-4, 64297-5, 00106-6, 3016-3 #### [facility] CLIA [id number] [address] [place] [address] [place] Creatinine and Glomerular filtration rate.predicted panel (S/P/Bld) 72 mL/min/1.73m??? Normal >=60 [facility] Comment on above: Order Comment: Speci men Type: BLOOD SPECIMEN Ordering Facility: [facility] Address: [address] [place] [address] Result Comment: Marisol mated Glomerular Filtration Rate (eGFR) is calculated using the 2020 CKD-EPI creatinine equation. This equation utilizes serum creatinine, sex, and age as parameters. The creatinine assay has traceable calibration to isotope dilution-mass spectrometry. Refer to KDIGO guidelines for clinical interpretation. In patients with unstable renal function, e.g. those with acute kidney injury, the eGFR may not accurately reflect actual GFR. Performed By: #### 2 276-4, 49157-6, 79549-6, 6-3 #### [facility] CLIA [id number] [address] [id number] [place] Glucose [Mass/Vol] 74 mg/dL Normal 74-99 [facility] Comment on above: Order Comment: Gina taveras Type: BLOOD SPECIMEN Ordering Facility: [facility] Address: [address] [place] [address] Result Comment: The [place] Diabetes [employer] (ADA) provides guidance for cutoff values for fasting glucose and random glucose. The ADA defines fasting as no caloric intake for at least 8 hours. Fasting plasma glucose results between 100 to 125 mg/dL indicate increased risk for diabetes (prediabetes). Fasting plasma glucose results greater than or equal to 126 mg/dL meet the criteria for diagnosis of diabetes. In the absence of unequivocal hyperglycemia, results should be confirmed by repeat testing. In a patient with classic symptoms of hyperglycemia or hyperglycemic crisis, random plasma glucose results greater than or equal to 200 mg/dL meet the criteria for diagnosis of diabetes. Reference: Standards of Medical Care in Diabetes 2016, [place] [employer]. Diabetes Care. 2016.39(Suppl 1). Performed By: #### 2 276-4, 26776-0, 23743-8, 6-3 #### [facility] CLIA [id number] [facility] [place] [id number] [place] Potassium [Moles/Vol] 3.4 mmol/L Low 3.7-5.1 [facility] Comment on above: Order Comment: Gina taveras Type: BLOOD SPECIMEN Ordering Facility: [facility] Address: [address] [place] [address] Performed By: #### 2 276-4, 71547-8, 32276-8, 3016-3 #### [facility] CLIA [id number] [address] [id number] [place] Protein [Mass/Vol] 7.2 g/dL Normal 6.3-8.0 [facility] Comment on above: Order Comment: Speci men Type: BLOOD SPECIMEN Ordering Facility: [facility] Address: [address] [place] [address] Performed By: #### 2 276-4, 58780-9, 96298-9, 3016-3 #### [facility] CLIA [id number] [address] [place] [address] [place] Sodium [Moles/Vol] 145 mmol/L High 136-144 [facility] Comment on above: Order Comment: Speci men Type: BLOOD SPECIMEN Ordering Facility: [facility] Address: [address] [place] [address] Performed By: #### 2 276-4, 02105-8, 24184-0, 3016-3 #### [facility] CLIA [id number] [address] [place] [address] [place] Urea nitrogen [Mass/Vol] 13 mg/dL Normal 7-21 [facility] Comment on above: Order Comment: Speci men Type: BLOOD SPECIMEN Ordering Facility: [facility] Address: [address] [place] [address] Performed By: #### 2 276-4, 44724-6, 99597-6, 3016-3 #### [facility] CLIA [id number] [address] [place] [address] [place] D dimer FEU PPP-mCncon 01-24 Fibrin D-dimer FEU (PPP) [Mass/Vol] 270 ng/mL FEU Normal <500 [facility] Comment on above: Order Comment: Speci men Type: BLOOD SPECIMEN Ordering Facility: [facility] Address: [address] [place] [address] Result Comment: Froz en Plasma Aliquot Performed By: #### 2 276-4, 18529-8, 32446-4, 3016-3 #### [facility] CLIA [id number] [address] [place] [address] [place] Ferritin SerPl-mCncon 2023 Ferritin [Mass/Vol] 64.8 ng/mL Normal 14.7-205.1 [facility] Comment on above: Order Comment: Speci men Type: BLOOD SPECIMEN Ordering Facility: [facility] Address: [address] [place] [address] Performed By: #### 2 276-4, 74403-3, 74054-6, 3016-3 #### [facility] CLIA [id number] [address] [place] [address] [place] Folate SerPl-mCncon 01-25-20 24 Folate [Mass/Vol] 6.9 ng/mL Normal >4.7 [facility] Comment on above: Order Comment: Speci men Type: BLOOD SPECIMEN Ordering Facility: [facility] Address: [address] [place] [address] Performed By: #### 2 276-4, 38005-8, 54533-9, 3016-3 #### [facility] CLIA [id number] [address] [place] [address] [place] MANGANESE BLDon 01-25-2024 Manganese (Bld) [Mass/Vol] 7.3 ug/L Normal 4.4-15.2 [facility] Comment on above: Order Comment: Speci men Type: BLOOD SPECIMEN Ordering Facility: [facility] Address: [address] [place] [address] Result Comment: This test was developed, and its performance characteristics determined by the [facility] Department of Pathology and Laboratory Medicine. It has not been cleared or approved by the FDA. The [facility] Department of Pathology and Laboratory Medicine is regulated under CLIA as qualified to perform high-complexity testing. This test is used for clinical purposes. It should not be regarded as investigational or for research. Performed By: #### C HROM, SALTY #### [facility] CLIA [id number] [address] [place] [address] [place] NT-proBNP SerPl-mCncon 01-24 Natriuretic peptide.B prohormone N-Terminal [Mass/Vol] 47 pg/mL Normal <125 [facility] Comment on above: Order Comment: Speci men Type: BLOOD SPECIMEN Ordering Facility: [facility] Address: [address] [place] [address] Performed By: #### 2 276-4, 33469-1, 99036-8, 3016-3 #### [facility] CLIA [id number] [address] [place] [address] OMEGACHECKon 01-25-2024 ARACHIDONIC ACID 14.4 % by wt Normal 8.6-15.6 [facility] Comment on above: Order Comment: Speci men Type: BLOOD SPECIMEN Ordering Facility: [facility] Address: [address] [place] [address] Performed By: #### O MEGAC #### [facility] CLIA [id number] [address] [place] [address] ARACHIDONIC ACID/EPA RATIO 24.8 Normal 3.7-40.7 [facility] Comment on above: Order Comment: Speci men Type: BLOOD SPECIMEN Ordering Facility: [facility] Address: [address] [place] [address] Result Comment: Rece ived Date: Performed By: #### O MEGAC #### [facility] CLIA [id number] [address] [place] [address]5963 DHA 1.7 % by wt Normal 1.4-5.1 [facility] Comment on above: Order Comment: Speci men Type: BLOOD SPECIMEN Ordering Facility: [facility] Address: [address] [place] [address] Performed By: #### O MEGAC #### [facility] CLIA [id number] [address] [place] [address] 36440 DPA 1.3 % by wt Normal 0.8-1.8 [facility] Comment on above: Order Comment: Speci men Type: BLOOD SPECIMEN Ordering Facility: [facility] Address: [address] [id number] Performed By: #### O MEGAC #### [facility] CLIA [id number] [address] [place] [address] 66778 EPA 0.6 % by wt Normal 0.2-2.3 [facility] Comment on above: Order Comment: Speci men Type: BLOOD SPECIMEN Ordering Facility: [facility] Address: [address] [place] [address] Performed By: #### O MEGAC #### [facility] CLIA [id number] [address] [place] [address] 10492 LINOLEIC ACID 27.3 % by wt Normal 18.6-29.5 [facility] Comment on above: Order Comment: Speci men Type: BLOOD SPECIMEN Ordering Facility: [facility] Address: [address] [place] [address] Performed By: #### O MEGAC #### [facility] CLIA [id number] [address] [place], [place] [id number] OMEGA-3 TOTAL 3.6 % by wt Normal [facility] Comment on above: Order Comment: Speci men Type: BLOOD SPECIMEN Ordering Facility: [facility] Address: [address] [place] [address] Performed By: #### O MEGAC #### [facility] CLIA [id number] [address] [place] [address] 52758 OMEGA-6 TOTAL 45.8 % by wt Normal [facility] Comment on above: Order Comment: Speci men Type: BLOOD SPECIMEN Ordering Facility: [facility] Address: [address] [place] [address] Result Comment: [facility] measures a number of omega-6 fatty acids with AA and LA being the two most abundant forms reported. Performed By: #### O MEGAC #### [facility] CLIA [id number] [address] [place] [address] OMEGA-6/OMEGA-3 RATIO 12.8 Normal 3.7-14.4 [facility] Comment on above: Order Comment: Speci men Type: BLOOD SPECIMEN Ordering Facility: [facility] Address: [address] [place] [address] Performed By: #### O MEGAC #### [facility] CLIA [id number] [address] [place] [address] 11502 OMEGACHECK 3.6 % by wt Low >5.4 [facility] Comment on above: Order Comment: Speci men Type: BLOOD SPECIMEN Ordering Facility: [facility] Address: [address] [place] [address] Result Comment: Incr easing blood levels of long-chain n-3 fatty acids are associated with a lower risk of sudden cardiac (1). Based on the top (75th percentile) and bottom (25th percentile) quartiles of the [facility] reference population, the following relative risk categories were established for OmegaCheck: A cut-off of >=5.5% by wt defines a population at optimal relative risk, 3.8-5.4% by wt defines a population at moderate relative risk, and <=3.7% by wt defines a population at high relative risk of sudden cardiac . The totality of the scientific evidence demonstrates that when consumption of fish oils is limited to 3 g/day or less of EPA and DHA, there is no significant risk for increased bleeding time beyond the normal range. A daily dosage of 1 gram of EPA and DHA lowers the circulating triglycerides by about 7-10% within 2 to 3 weeks. (Reference: 1-Kamran et al. [facility]. 2002; 346: 4185-9945).This test was developed and its analytical performance characteristics have been determined by [facility] at [facility]. It has not been cleared or approved by the U.S. Food and Drug Administration. This assay has been validated pursuant to the CLIA regulations and is used for clinical purposes. Performed By: #### O MEGAC #### [facility] CLIA [id number] [address] [place] [address] 23424 TSH SerPl-aCncon 01-25-2024 TSH Qn 0.910 m[IU]/L Normal 0.270-4.200 [facility] Comment on above: Order Comment: Speci men Type: BLOOD SPECIMEN Ordering Facility: [facility] Address: [address] [place] [address] Result Comment: If t he patient is , TSH reference range varies by gestational period: First Trimester (weeks 9-12): 0.180-2.990 mIU/L Second Trimester: 0.110-3.980 mIU/L Third Trimester: 0.480-4.710 mIU/L Lg Lerma et al. A Practical Approach for the Verifications and Determination of Site- and Trimester-Specific Reference Intervals for Thyroid Function tests in . Thyroid, 2019:29:3:412-420. Nikolas Reeves, et al. 2017 Guidelines of the [place] Thyroid Association for the Diagnosis and Management of Thyroid Disease during and the . Thyroid, 2017:27:3:315-389. Performed By: #### 2 276-4, 85156-5, 99034-7, 3016-3 #### [facility] CLIA [id number] [address] [place] [address] [place] Vit B12 SerPl-mCncon 024 Cobalamin (Vitamin B12) [Mass/Vol] 685 pg/mL Normal 232-1245 [facility] Comment on above: Order Comment: Speci men Type: BLOOD SPECIMEN Ordering Facility: [facility] Address: [address] [place] [address] Performed By: #### 1 988-5, 2132-9, 2284-8 #### [facility] CLIA [id number] [address] [place] [address] [place] Zinc SerPl-mCncon 01-25-2024 Zinc [Mass/Vol] 60 ug/dL Normal 60-120 [facility] Comment on above: Order Comment: Speci men Type: BLOOD SPECIMEN Ordering Facility: [facility] Address: [address] [place] [address] Result Comment: This test was developed, and its performance characteristics determined by the [facility] Department of Pathology and Laboratory Medicine. It has not been cleared or approved by the FDA. The [facility] Department of Pathology and Laboratory Medicine is regulated under CLIA as qualified to perform high-complexity testing. This test is used for clinical purposes. It should not be regarded as investigational or for research. Performed By: #### 2 276-4, 32613-0, 34685-5, 3016-3 #### [facility] CLIA [id number] [address] [place] [address] [place] Sriram 12-01-2023 ANTONIETAN Telephone (PUMT) LAKEISHA AMBROSIO ([id number]) 1980 F Date Time Provider Department 12/01/23 [facility] During your visit today, we recorded the following information about you: Odilia Lara PSS 12/01/2023 3:01 PM Signed Received email appointment request for patient to be seen in the recover clinic. Called patient to update insurance information and to schedule appointment, 1st attempt, left VM. Odilia Lara PSS 12/08/2023 1:50 PM Signed Called patient to update registration and insurance, and to schedule with recover clinic, 2nd attempt, left VM. Odilia Lara PSS 12/14/2023 11:40 AM Signed Called patient to update registration and insurance, and to schedule with [facility], 3rd attempt, left VM. Closing encounter. Allergies As of Date: 12/01/2023 (No Known Allergies) Date Reviewed: 09/03/2021 Reviewed by: Aysha Son APRN.SIGNALMAN - Fully Assessed Reason for Visit: Appointment [186] Prescriptions as of 12/14/2023 - FLUoxetine (PROZAC) 40 mg capsule TAKE 1 CAPSULE BY MOUTH ONCE DAILY - topiramate (TOPAMAX) 50 mg tablet Take 1 tablet by mouth once daily. - clonazePAM (KLONOPIN) 0.5 mg tablet TAKE 1/2-1 TABLET ONCE DAILY NEEDED FOR ANXIETY Do not start before April 19, 2021. - buPROPion XL (WELLBUTRIN XL) 150 mg 24 hr tablet - propranolol (INDERAL) 20 mg tablet Take 1 tablet by mouth twice daily. - rizatriptan (MAXALT) 10 mg tablet Take 1 tablet by mouth as needed. AT ONSET OF HEADACHE. MAY REPEAT AFTER 2 HOURS. DO NOT EXCEED 30 MG PER DAY. 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 [facility] Comment on above: Result Comment: Nega tive <1:80 Borderline 1:80 Positive >1:80 ICAP nomenclature: AC-0 For more information about Hep-2 cell patterns use ANApatterns.org, the official website for the International Consensus on Antinuclear Antibody (JESSICA) Patterns (ICAP). Performed at: - [facility] [place] [id number] [place]: Lan Nguyen PhD, Phone: [phone] PERFORMED BY: [place] [address] PATHOLOGIST LEAF TIER TRENT WESTON M.D. Performed By: #### E SR, CRP, CMP, CBC #### [address] #### HBSAB, HBCAB, HBSAG, HCV RX PCR, JESSICA #### [facility] , C-Reactive Proteinon 023 CRP [Mass/Vol] mg/L Normal 0.0-0.5 [facility] Comment on above: Result Comment: PERF ORMED BY: [place] [address] PATHOLOGIST LEAF TIER TRENT WESTON M.D. Performed By: #### E SR, CRP, CMP, CBC #### [address] #### HBSAB, HBCAB, HBSAG, HCV RX PCR, JESSICA #### [facility] , Complete Blood Count Auto Di ffon 10-05-2022 Basophils (Bld) [#/Vol] 0.0 10*3/uL Normal 0.0-0.2 [facility] Comment on above: Performed By: #### E SR, CRP, CMP, CBC #### [place] [address] [place] #### HBSAB, HBCAB, HBSAG, HCV RX PCR, JESSICA #### [facility] , Basophils/100 WBC (Bld) 0.4 % Normal . [facility] Comment on above: Performed By: #### E SR, CRP, CMP, CBC #### [address] #### HBSAB, HBCAB, HBSAG, HCV RX PCR, JESSICA #### [facility] , Eosinophils (Bld) [#/Vol] 0.0 10*3/uL Normal 0.0-0.45 [facility] Comment on above: Performed By: #### E SR, CRP, CMP, CBC #### [address] #### HBSAB, HBCAB, HBSAG, HCV RX PCR, JESSICA #### [facility] , Eosinophils/100 WBC (Bld) 0.5 % Normal . [facility] Comment on above: Performed By: #### E SR, CRP, CMP, CBC #### [place] [address] [place] #### HBSAB, HBCAB, HBSAG, HCV RX PCR, JESSICA #### [facility] , Erythrocyte distribution width (RBC) [Ratio] 13.1 % Normal 11.9-15.3 [facility] Comment on above: Performed By: #### E SR, CRP, CMP, CBC #### [place] [address] [place] #### HBSAB, HBCAB, HBSAG, HCV RX PCR, JESSICA #### [facility] , Hematocrit (Bld) [Volume fraction] 39.2 % Normal 34.0-46.4 [facility] Comment on above: Performed By: #### E SR, CRP, CMP, CBC #### [address] #### HBSAB, HBCAB, HBSAG, HCV RX PCR, JESSICA #### [facility] , Hemoglobin (Bld) [Mass/Vol] 13.4 g/dL Normal 11.8-15.4 [facility] Comment on above: Performed By: #### E SR, CRP, CMP, CBC #### [address] #### HBSAB, HBCAB, HBSAG, HCV RX PCR, JESSICA #### [facility] , Lymphocytes (Bld) [#/Vol] 2.6 10*3/uL Normal 1.00-4.8 [facility] Comment on above: Performed By: #### E SR, CRP, CMP, CBC #### [address] #### HBSAB, HBCAB, HBSAG, HCV RX PCR, JESSICA #### [facility] , Lymphocytes/100 WBC (Bld) 31.5 % Normal . [facility] Comment on above: Performed By: #### E SR, CRP, CMP, CBC #### [place] [address] [place] #### HBSAB, HBCAB, HBSAG, HCV RX PCR, JESSICA #### [facility] , MCH (RBC) [Entitic mass] 30.3 pg Normal 24.7-34.3 [facility] Comment on above: Performed By: #### E SR, CRP, CMP, CBC #### [place] [address] [place] #### HBSAB, HBCAB, HBSAG, HCV RX PCR, JESSICA #### [facility] , MCV (RBC) [Entitic vol] 89.0 fL Normal 80-100 [facility] Comment on above: Performed By: #### E SR, CRP, CMP, CBC #### [address] #### HBSAB, HBCAB, HBSAG, HCV RX PCR, JESSICA #### [facility] , Mean Corpuscular HGB Conc 34.1 g/dL Normal 32.0-35.0 [facility] Comment on above: Performed By: #### E SR, CRP, CMP, CBC #### [address] #### HBSAB, HBCAB, HBSAG, HCV RX PCR, JESSICA #### [facility] , Monocytes (Bld) [#/Vol] 0.3 10*3/uL Normal 0.0-0.8 [facility] Comment on above: Performed By: #### E SR, CRP, CMP, CBC #### [address] #### HBSAB, HBCAB, HBSAG, HCV RX PCR, JESSICA #### [facility] , Monocytes/100 WBC (Bld) 4.0 % Normal . [facility] Comment on above: Performed By: #### E SR, CRP, CMP, CBC #### [place] [address] [place] #### HBSAB, HBCAB, HBSAG, HCV RX PCR, JESSICA #### [facility] , Neutrophils (Bld) [#/Vol] 5.2 10*3/uL Normal 1.8-7.7 [facility] Comment on above: Performed By: #### E SR, CRP, CMP, CBC #### [place] [address] [place] #### HBSAB, HBCAB, HBSAG, HCV RX PCR, JESSICA #### [facility] , Neutrophils/100 WBC (Bld) 63.6 % Normal . [facility] Comment on above: Performed By: #### E SR, CRP, CMP, CBC #### [facility] [address] [place] [address] #### HBSAB, HBCAB, HBSAG, HCV RX PCR, JESSICA #### [facility] , NRBC% 0.1 /100{WBC} Normal 0-0.5 [facility] Comment on above: Performed By: #### E SR, CRP, CMP, CBC #### [address] #### HBSAB, HBCAB, HBSAG, HCV RX PCR, JESSICA #### [facility] , Platelet mean volume (Bld) [Entitic vol] 8.2 fL Normal 6.3-10.7 [facility] Comment on above: Performed By: #### E SR, CRP, CMP, CBC #### [address] #### HBSAB, HBCAB, HBSAG, HCV RX PCR, JESSICA #### [facility] , Platelets (Bld) [#/Vol] 274 10*3/uL Normal 150-450 [facility] Comment on above: Performed By: #### E SR, CRP, CMP, CBC #### [place] [address] [place] #### HBSAB, HBCAB, HBSAG, HCV RX PCR, JESSICA #### [facility] , RBC (Bld) [#/Vol] 4.40 10*6/uL Normal 3.60-5.00 [facility] Comment on above: Performed By: #### E SR, CRP, CMP, CBC #### [place] [address] [place] #### HBSAB, HBCAB, HBSAG, HCV RX PCR, JESSICA #### [facility] , WBC (Bld) [#/Vol] 8.1 10*3/uL Normal 3.8-11.6 [facility] Comment on above: Performed By: #### E SR, CRP, CMP, CBC #### [facility] [address] [place] [address] #### HBSAB, HBCAB, HBSAG, HCV RX PCR, JESSICA #### [facility] , Comprehensive Metabolic Pane david 10-05-2022 Albumin [Mass/Vol] 4.5 g/dL Normal 3.5-5.7 [facility] Comment on above: Performed By: #### E SR, CRP, CMP, CBC #### [facility] [address] [place] [address] [place] #### HBSAB, HBCAB, HBSAG, HCV RX PCR, JESSICA #### [facility] , Albumin/Globulin [Mass ratio] 1.8 {ratio} Normal [facility] Comment on above: Performed By: #### E SR, CRP, CMP, CBC #### [facility] [address] [place] [address] [place] #### HBSAB, HBCAB, HBSAG, HCV RX PCR, JESSICA #### [facility] , ALP [Catalytic activity/Vol] 105 U/L High 34-104 [facility] Comment on above: Performed By: #### E SR, CRP, CMP, CBC #### [facility] [address] [place] [address] [place] #### HBSAB, HBCAB, HBSAG, HCV RX PCR, JESSICA #### [facility] , ALT [Catalytic activity/Vol] 15 U/L Normal 7-52 [facility] Comment on above: Performed By: #### E SR, CRP, CMP, CBC #### [facility] [address] [place] [address] [place] #### HBSAB, HBCAB, HBSAG, HCV RX PCR, JESSICA #### [facility] , Anion gap [Moles/Vol] 9.5 mmol/L Normal 6.0-15.0 [facility] Comment on above: Performed By: #### E SR, CRP, CMP, CBC #### [facility] [address] [place] [address] #### HBSAB, HBCAB, HBSAG, HCV RX PCR, JESSICA #### [facility] , AST [Catalytic activity/Vol] 17 U/L Normal 13-39 [facility] Comment on above: Performed By: #### E SR, CRP, CMP, CBC #### [facility] [address] [place] [address] [place] #### HBSAB, HBCAB, HBSAG, HCV RX PCR, JESSICA #### [facility] , Bilirubin [Mass/Vol] 0.4 mg/dL Normal 0.3-1.0 [facility] Comment on above: Performed By: #### E SR, CRP, CMP, CBC #### [facility] [address] [place] [address] [place] #### HBSAB, HBCAB, HBSAG, HCV RX PCR, JESSICA #### [facility] , Calcium [Mass/Vol] 8.9 mg/dL Normal 8.6-10.3 [facility] Comment on above: Performed By: #### E SR, CRP, CMP, CBC #### [facility] [address] [place] [address] #### HBSAB, HBCAB, HBSAG, HCV RX PCR, JESSICA #### [facility] , Chloride [Moles/Vol] 107 mmol/L Normal 98-107 [facility] Comment on above: Performed By: #### E SR, CRP, CMP, CBC #### [facility] [address] [place] [address] [place] #### HBSAB, HBCAB, HBSAG, HCV RX PCR, JESSICA #### [facility] , CO2 [Moles/Vol] 28.2 mmol/L Normal 21.0-31.0 [facility] Comment on above: Performed By: #### E SR, CRP, CMP, CBC #### [place] [address] [place] #### HBSAB, HBCAB, HBSAG, HCV RX PCR, JESSICA #### [facility] , Creatinine [Mass/Vol] 0.91 mg/dL Normal 0.60-1.20 [facility] Comment on above: Performed By: #### E SR, CRP, CMP, CBC #### [place] [address] [place] #### HBSAB, HBCAB, HBSAG, HCV RX PCR, JESSICA #### [facility] , GFR/1.73 sq M.predicted MDRD (S/P/Bld) [Vol rate/Area] mL/min/{1.73_m2} [facility] Comment on above: Performed By: #### E SR, CRP, CMP, CBC #### [place] [address] [place] #### HBSAB, HBCAB, HBSAG, HCV RX PCR, JESSICA #### [facility] , Globulin (S) [Mass/Vol] 2.5 g/dL [facility] Comment on above: Performed By: #### E SR, CRP, CMP, CBC #### [place] [address] [place] #### HBSAB, HBCAB, HBSAG, HCV RX PCR, JESSICA #### [facility] , Glucose [Mass/Vol] 91 mg/dL Normal 70-100 [facility] Comment on above: Result Comment: [facility] Glucose Reference Range is dependent on time and content of last meal. Glucose of more than 200 mg/dL in a nonstressed, ambulatory subject supports the diagnosis of Diabetes Mellitus. ADA recommended reference range Performed By: #### E SR, CRP, CMP, CBC #### [place] [address] [place] #### HBSAB, HBCAB, HBSAG, HCV RX PCR, JESSICA #### [facility] , Potassium [Moles/Vol] 3.7 mmol/L Normal 3.5-5.1 [facility] Comment on above: Performed By: #### E SR, CRP, CMP, CBC #### [facility] [address] [place] [address] #### HBSAB, HBCAB, HBSAG, HCV RX PCR, JESSICA #### [facility] , Protein [Mass/Vol] 7.0 g/dL Normal 6.4-8.9 [facility] Comment on above: Performed By: #### E SR, CRP, CMP, CBC #### [address] #### HBSAB, HBCAB, HBSAG, HCV RX PCR, JESSICA #### [facility] , Sodium [Moles/Vol] 141 mmol/L Normal 136-145 [facility] Comment on above: Performed By: #### E SR, CRP, CMP, CBC #### [address] #### HBSAB, HBCAB, HBSAG, HCV RX PCR, JESSICA #### [facility] , Urea nitrogen [Mass/Vol] 11 mg/dL Normal 7-25 [facility] Comment on above: Performed By: #### E SR, CRP, CMP, CBC #### [address] #### HBSAB, HBCAB, HBSAG, HCV RX PCR, JESSICA #### [facility] , Erythrocyte Sedimentation Ra harleen 10-05-2022 ESR (Bld) [Velocity] 12 mm/h Normal 0-19 [facility] Comment on above: Result Comment: PERF ORMED BY: [place] [address] PATHOLOGIST LEAF TIER TRENT WESTON M.D. Performed By: #### E SR, CRP, CMP, CBC #### [place] [address] [place] #### HBSAB, HBCAB, HBSAG, HCV RX PCR, JESSICA #### [facility] , Hep C Ab wRfx to Qnt PCRon 0 10-05-2022 Hepatitis C Virus Antibody Non-Reactive Normal Non Reactive [facility] Comment on above: Performed By: #### E SR, CRP, CMP, CBC #### [place] [address] [place] #### HBSAB, HBCAB, HBSAG, HCV RX PCR, JESSICA #### [facility] , Interpretation Hepatitis C Normal . [facility] Comment on above: Result Comment: Not infected with HCV unless early or acute infection is suspected (which may be delayed in an immunocompromised individual), or other evidence exists to indicate HCV infection. Performed By: #### E SR, CRP, CMP, CBC #### [facility] [address] [place] [address] #### HBSAB, HBCAB, HBSAG, HCV RX PCR, JESSICA #### [facility] , Hepatitis B Core Antibodyon 10-05-2022 Hepatitis B Core Antibody Negative Normal Negative [facility] Comment on above: Result Comment: Perf ormed at: - [facility] [place] [id number] [place]: Lan Nguyen PhD, Phone: [phone] Performed By: #### E SR, CRP, CMP, CBC #### [address] #### HBSAB, HBCAB, HBSAG, HCV RX PCR, JESSICA #### [facility] , Hepatitis B Surface Antibody on 10-05-2022 Hepatitis B Surface Antibody Non-Reactive Normal . [facility] Comment on above: Result Comment: Non Reactive: Inconsistent with immunity, less than 10 mIU/mL Reactive: Consistent with immunity, greater than 9.9 mIU/mL Performed By: #### E SR, CRP, CMP, CBC #### [place] [address] [place] #### HBSAB, HBCAB, HBSAG, HCV RX PCR, JESSICA #### [facility] , Hepatitis B Surface Antigeno n 10-05-2022 HBsAg Screen Negative Normal Negative [facility] Comment on above: Result Comment: PERF ORMED BY: [place] [address] PATHOLOGIST LEAF TIER TRENT WESTON M.D. Performed By: #### E SR, CRP, CMP, CBC #### [facility] [address] [place] [address] [place] #### HBSAB, HBCAB, HBSAG, HCV RX PCR, JESSICA #### [facility] , XR hand RT min 3V*on 022 XR hand RT min 3V* [place] [address] XRay Report Signed Patient: Lakeisha Jerry MR#: [id number] 6 : 1980 Acct:[id number] Age/Sex: 41 / F ADM Date: 11/18/21 Loc: [facility] Room: Type: [facility] Attending Dr: Liyah Francis MD Copies to: Liyah Francis MD Ordering Provider: Liyah Francis MD Date of Service: 11/18/21 XR/XR hand RT min 3V*: PAIN 4 viewsRIGHT hand plain film COMPARISON:06/16/21 HISTORY:2nd metacarpal pain for one year No fracture, dislocation or focal soft tissue abnormality seen. There are no significant degeneration. XR/XR hand RT min 3V* IMPRESSION:Unremarka ble exam Impression dictated by: Pérez Meier M.D.11/18/2021 12:20 PM Dictation Location: [place] [address] Transcribed By: [facility] 11/18/21 1220 Dictated By: Pérez Meier DO 11/18/21 1219 Signed By: 11/18/21 1220 Normal [facility] XR hand RT min 3V* [facility] [employer] Other XR hand RT min 3V* [facility] [employer] Other XR hand RT min 3V* [address] [employer] Other XR hand RT min 3V* [place] [address] [employer] Other XR hand RT min 3V* XRay Report [employer] Other XR hand RT min 3V* Signed [employer] Other XR hand RT min 3V* Patient: Lakeisha Jerry MR#: [id number] [employer] Other XR hand RT min 3V* 6 [employer] Other XR hand RT min 3V* : 1980 Acct:[id number] [employer] Other XR hand RT min 3V* Age/Sex: 41 / F ADM Date: 11/18/21 [employer] Other XR hand RT min 3V* Loc: [facility] Room: Type: [facility] [employer] Other XR hand RT min 3V* Attending Dr: Liyah Francis MD [employer] Other XR hand RT min 3V* Copies to: Liyah Francis MD [employer] Other XR hand RT min 3V* Ordering Provider: Liyah Francis MD [employer] Other XR hand RT min 3V* Date of Service: 11/18/21 [employer] Other XR hand RT min 3V* XR/XR hand RT min 3V*: PAIN [employer] Other XR hand RT min 3V* 4 viewsRIGHT hand plain film [employer] Other XR hand RT min 3V* COMPARISON:06/16/21 [employer] Other XR hand RT min 3V* HISTORY:2nd metacarpal pain for one year [employer] Other XR hand RT min 3V* No fracture, dislocation or focal soft tissue abnormality seen. There are no significant [employer] Other XR hand RT min 3V* degeneration. [facility] [employer] Other XR hand RT min 3V* XR/XR hand RT min 3V* [employer] Other XR hand RT min 3V* IMPRESSION:Unremarka ble exam [employer] Other XR hand RT min 3V* Impression dictated by: Pérez Meier M.D.11/18/2021 12:20 PM [employer] Other XR hand RT min 3V* Dictation Location: [place] [address] [employer] Other XR hand RT min 3V* Transcribed By: PWS 11/18/21 1220 [employer] Other XR hand RT min 3V* Dictated By: Pérez Meier DO 11/18/21 1219 [employer] Other XR hand RT min 3V* Signed By: [employer] Other XR hand RT min 3V* 11/18/21 1220 [employer] Other MG MAMM SCREEN 3D KATHERYN CADon 11-05-2021 MG MAMM SCREEN 3D KATHERYN CAD Patient: LAKEISHA AMBROSIO Exam Date: 11/05/2021 : 1980 Gender:F Ordering : DR MINDI MICHELLE M.D. Admission #: [id number] Family : Order #: [id number] CLICK HERE TO VIEW EXAM RADIOLOGY REPORT PROCEDURE: MAMMOGRAM SCREENING 3D BILATERAL CAD COMPARISON: MG MAMM SCREEN 3D KATHERYN CAD, 06/18/2020. INDICATIONS: Screening mammography Calculator Name NCI Breast Cancer Risk Assessment Tool 5 Year Breast Cancer Risk 0.70% Lifetime Breast Cancer Risk 10.90% Personal Breast Cancer No Personal Ovarian Cancer No Treatments None Family Cancers Aunt-paternal with breast cancer at age 43; Aunt-paternal with breast cancer at age 45; Mother with colon cancer at age 63. LOCATION: [facility] BREAST COMPOSITION: Scattered areas fibroglandular density. FINDINGS: DIAGNOSTIC CATEGORY 1--NEGATIVE. NO CHANGE FROM COMPARISON ASSESSMENT. Scattered benign-appearing lymph nodes are present. RIGHT BREAST: No significant suspicious finding. LEFT BREAST: No significant suspicious finding. RECOMMENDATIONS: ROUTINE MAMMOGRAM AND CLINICAL EVALUATION IN 12 MONTHS. PLEASE NOTE: A NORMAL MAMMOGRAM DOES NOT EXCLUDE THE POSSIBILITY OF BREAST CANCER. A CLINICALLY SUSPICIOUS PALPABLE LUMP SHOULD BE BIOPSIED. Dictated by: Sarah Luna MD on 11/06/2021 at 08:31 Approved by: Sarah Luna MD on 11/06/2021 at 08:32 Normal [facility] MRI BRAIN WO CONon MRI BRAIN WO CON EXAMINATION: MRI BRAIN WO CON, 03/30/2021 9:27 AM EST HISTORY: Tremor COMPARISON: None. TECHNIQUE: MRI of the brain was performed without IV contrast. FINDINGS: CEREBRUM: No edema, hemorrhage, mass, acute infarction, or inappropriate atrophy. CEREBELLUM: No edema, hemorrhage, mass, acute infarction, or inappropriate atrophy. BRAINSTEM: No edema, hemorrhage, mass, acute infarction, or inappropriate atrophy. CSF SPACES: Ventricles, cisterns, and sulci are appropriate for age. No hydrocephalus, subarachnoid hemorrhage, or mass. SKULL: No mass or other significant visible lesion. SINUSES: Moderate diffuse paranasal sinus disease ORBITS: Limited views are unremarkable. OTHER: Negative. IMPRESSION: No acute intracranial abnormality Electronically authenticated by: SARAH LUNA Date: 2021-03-30 10:19 Normal [facility] XR CHEST 2 Von 03-26-2021 XR CHEST 2 V This study was read during a downtime in the [employer] PACS system. The actual time dictated and approved is in the body of the report. PROCEDURE: RADIOGRAPH CHEST 2 VIEWS COMPARISON: XR CHEST 2 V, 06/16/2020. INDICATIONS: Disorder of respiratory system. FINDINGS: LUNGS: No significant pulmonary parenchymal abnormalities. VASCULATURE: No increased pulmonary vasculature. PLEURA: No pneumothorax, effusion, or pleural thickening. CARDIAC: No cardiomegaly or cardiac silhouette abnormality. MEDIASTINUM: No visible mass or adenopathy. BONES: No fracture or visible bone lesion. OTHER: Negative. CONCLUSION: No acute disease. Dictated by: Sarah Luna MD on 03/24/2021 at 14:45 Approved by: Sarah Luna MD on 03/24/2021 at 14:47 Electronically authenticated by: SARAH LUNA Date: 2021-03-26 07:04 Normal [facility] CBC AUTO DIFFon 03-24-2021 BASO # 0.0 103/ul Normal 0.0-0.1 [facility] Comment on above: Performed By: #### C BC #### [facility] [address] [place] [address] [address] Dustin Rodriguez Basophils/100 WBC (Bld) 0.5 % Normal 0.2-2.0 [facility] Comment on above: Performed By: #### C BC #### [facility] [address] [place] [address] Dr. Dustin Rodriguez EO # 0.1 103/ul Normal 0.0-0.7 [facility] Comment on above: Performed By: #### C BC #### [facility] [address] [place] [address] Dr. Dustin Rodriguez Eosinophils/100 WBC (Bld) 2.2 % Normal 0.9-7.0 [facility] Comment on above: Performed By: #### C BC #### [facility] [address] [place] [address] Dr. Dustin Rodriguez Erythrocyte distribution width (RBC) [Ratio] 13.3 % Normal 11.0-15.0 [facility] Comment on above: Performed By: #### C BC #### [facility] [address] [place] [address] Dr. Dustin Rodriguez Hematocrit (Bld) [Volume fraction] 43.1 % Normal 36.0-48.0 [facility] Comment on above: Performed By: #### C BC #### [facility] [address] [place] [address] Dr. Dustin Rodriguez Hemoglobin (Bld) [Mass/Vol] 14.4 g/dL Normal 12.0-16.0 [facility] Comment on above: Performed By: #### C BC #### [facility] [address] [place] [address] Dr. Dustin Rodriguez IG # 0.03 10e3/ul Normal 0.00-0.03 [facility] Comment on above: Performed By: #### C BC #### [facility] [address] [place] [address] Dr. Dustin Rodriguez IG % 0.5 % Normal 0.0-0.5 [facility] Comment on above: Performed By: #### C BC #### [facility] [address] [place] [address] Dr. Dustin Rodriguez LYMPH # 2.1 103/ul Normal 1.2-3.8 [facility] Comment on above: Performed By: #### C BC #### [facility] [address] [place] [address] Dr. Dustin Rodriguez Lymphocytes/100 WBC (Bld) 31.9 % Normal 20.5-60.0 [facility] Comment on above: Performed By: #### C BC #### [facility] [address] [place] [address] Dr. Dustin Rodriguez MANUAL DIFF REQ NO Normal [facility] Comment on above: Performed By: #### C BC #### [facility] [address] [place] [address] Dr. Dustin Rodriguez MCH (RBC) [Entitic mass] 30.3 pg Normal 26.7-34.0 [facility] Comment on above: Performed By: #### C BC #### [facility] [address] [place] [address] Dr. Dustin Rodriguez MCHC (RBC) [Mass/Vol] 33.4 g/dL Normal 29.9-35.2 [facility] Comment on above: Performed By: #### C BC #### [facility] [address] [place] [address] Dr. Dustin Rodriguez MCV (RBC) [Entitic vol] 90.5 fL Normal 81.0-99.0 [facility] Comment on above: Performed By: #### C BC #### [facility] [address] [place] [address] Dr. Dustin Rodriguez MONO # 0.5 103/ul Normal 0.3-0.8 [facility] Comment on above: Performed By: #### C BC #### [facility] [address] [place] [address] Dr. Dustin Rodriguez Monocytes/100 WBC (Bld) 7.9 % Normal 1.7-12.0 [facility] Comment on above: Performed By: #### C BC #### [facility] [address] [place] [address] Dr. Dustin Rodriguez NEUT # 3.7 103/ul Normal 1.4-6.5 [facility] Comment on above: Performed By: #### C BC #### [facility] [address] [place] [address] Dr. Dustin Rodriguez Neutrophils/100 WBC (Bld) 57.0 % Normal 43.0-75.0 [facility] Comment on above: Performed By: #### C BC #### [facility] [address] [place] [address] Dr. Dustin Rodriguez Platelet mean volume (Bld) [Entitic vol] 9.1 fL Critically low 9.5-13.5 [facility] Comment on above: Performed By: #### C BC #### [facility] [address] [place] [address] Dr. Dustin Rodriguez PLT 237 103/ul Normal 150-450 [facility] Comment on above: Performed By: #### C BC #### [facility] [address] [place] [address] Dr. Dustin Rodriguez RBC 4.76 106/ul Normal 4.20-5.40 [facility] Comment on above: Performed By: #### C BC #### [facility] [address] [place] [address] Dr. Dustin Rodriguez WBC 6.4 103/ul Normal 4.0-11.0 [facility] Comment on above: Performed By: #### C BC #### [facility] [address] [place] [address] Dr. Dustin Rodriguez PROF 14(COMP METB)on 022 Albumin [Mass/Vol] 3.7 g/dL Normal 3.5-5.0 [facility] Comment on above: Performed By: #### C MP, TSH ####[facility] [address] [place] [id number]. Dustin Michael Albumin/Globulin [Mass ratio] 0.9 {ratio} Normal [facility] Comment on above: Performed By: #### C MP, TSH ####[facility] [address] [place], [place] [address]Ru. Dustin Rodriguez ALP [Catalytic activity/Vol] 143 U/L Critically high 38-126 [facility] Comment on above: Performed By: #### C MP, TSH ####[facility] [address] [place] [id number]. Dustin Rodriguez ALT [Catalytic activity/Vol] 23 U/L Normal 9-52 [facility] Comment on above: Performed By: #### C MP, TSH ####[facility] [address] [place] [id number]. Dustin Rodriguez Anion gap [Moles/Vol] 12.2 mmol/L Normal [facility] Comment on above: Performed By: #### C MP, TSH ####[facility] [address] [place] [id number]. Dustin Rodriguez AST [Catalytic activity/Vol] 16 U/L Normal 14-36 [facility] Comment on above: Performed By: #### C MP, TSH ####[facility] [address] [place] [address]Dr. Dustin Rodriguez Bilirubin [Mass/Vol] 0.3 mg/dL Normal 0.2-1.3 [facility] Comment on above: Performed By: #### C MP, TSH ####[facility] [address] [place] [address]Dr. Dustin Rodriguez Calcium [Mass/Vol] 9.1 mg/dL Normal 8.4-10.2 [facility] Comment on above: Performed By: #### C MP, TSH ####[facility] [address] [place] [id number]. Dustin Rodriguez Chloride [Moles/Vol] 106 mmol/L Normal 98-107 [facility] Comment on above: Performed By: #### C MP, TSH ####[facility] [address] [place] [address]Dr. Dustin Rodriguez CO2 [Moles/Vol] 27.1 mmol/L Normal 22.0-30.0 [facility] Comment on above: Performed By: #### C MP, TSH ####[facility] [address] [place] [address]Dr. Dustin Rodriguez Creatinine [Mass/Vol] 1.06 mg/dL Critically high 0.52-1.04 [facility] Comment on above: Performed By: #### C MP, TSH ####[facility] [address] [place] [address]Dr. Dustin Michael EGFR-AF MONEGASQUE >60 Normal >=60 [facility] Comment on above: Performed By: #### C MP, TSH ####[facility] [address] [place] [address]Dr. Dustin Michael EGFR-NON AF MONEGASQUE 57 mL/min/1.73m2 Critically low >=60 [facility] Comment on above: Performed By: #### C MP, TSH ####[facility] [address] [place] [address]Dr. Dustin Michael Globulin (S) [Mass/Vol] 4.0 g/dL Normal [facility] Comment on above: Performed By: #### C MP, TSH ####[facility] [address] [place] [address]Dr. Dustin Michael Glucose [Mass/Vol] 105 mg/dL Normal 74-106 [facility] Comment on above: Performed By: #### C MP, TSH ####[facility] [address] [place] [address]Dr. Dustin Michael Potassium [Moles/Vol] 4.3 mmol/L Normal 3.4-5.0 [facility] Comment on above: Performed By: #### C MP, TSH ####[facility] [address] [place] [address]Dr. Makennasteven Rodriguez Protein [Mass/Vol] 7.7 g/dL Normal 6.1-8.2 [facility] Comment on above: Performed By: #### C MP, TSH ####[facility] [address] [place] [address]Dr. Makennasteven Rodriguez Sodium [Moles/Vol] 141 mmol/L Normal 137-145 [facility] Comment on above: Performed By: #### C MP, TSH ####[facility] [address] [place] [id number]. Dustin Rodriguez Urea nitrogen [Mass/Vol] 13.0 mg/dL Normal 7.0-17.0 [facility] Comment on above: Performed By: #### C MP, TSH ####[facility] [address] [place] [address]Dr. Dustin Rodriguez Urea nitrogen/Creatinine [Mass ratio] 12.3 mg/mg Normal [facility] Comment on above: Performed By: #### C MP, TSH ####[facility] [address] [place] [address]Dr. Dustin Rodriguez TSHon 03-24-2021 TSH 0.822 uIU/mL Normal 0.470-4.680 [facility] Comment on above: Performed By: #### C MP, TSH ####[facility] [address] [place] [address]Dr. Dustin Rodriguez TSH RANGE SEE BELOW Normal [facility] Comment on above: Result Comment: <0.3 4 UIU/ml HYPERTHYROID 0.34-5.60 UIU/ml EUTHYROID >5.60 UIU/ml HYPOTHYROID Performed By: #### C MP, TSH ####[facility] [address] [place] [address]Dr. Makennasteven Rodriguez VITAMIN B12on 03-24-2021 Cobalamin (Vitamin B12) [Mass/Vol] 1433.0 pg/mL Critically high 239.0-931.0 [facility] Comment on above: Performed By: #### V ITB12 #### [facility] [address] [place] [address] [address] Dustin Rodriguez [facility]15 SARS-CoV-2 (COVID-19) RNA MELISSA+probe Ql (Unsp spec) Detected Critically abnormal NOT DETECTED [facility] Comment on above: Result Comment: This test is not yet approved or cleared by the [place] FDA. When there are no FDA-approved or cleared tests available, and other criteria are met, FDA can make tests available under an emergency access mechanism called an Emergency Use Authorization (EUA). The EUA for this test is supported by the [place] of Health and Human Service's (HHS's) declaration that circumstances exist to justify the emergency use of in vitro diagnostics for the detection and/or diagnosis of the virus that causes COVID-19. This EUA will remain in effect (meaning this test can be used) for the duration of the COVID-19 declaration justifying emergency of IVDs, unless it is terminated or revoked by FDA (after which the test may no longer be used). Performed By: #### C [facility] #### [facility] [address] [place] [address] Dr. Dustin Rodriguez OBSOLETEon 12-11-2020 OBSOLETE Refill (PSMMMR) LAKEISHA AMBROSIO ([id number]) 1980 F Date Time Provider Department 12/11/20 AYSHA SON PSMMMR During your visit today, we recorded the following information about you: Daysi Scott 12/11/2020 2:15 PM Signed Aysha- Patient requests these prescription be sent to her local pharmacy. Thanks, Daysi Scott December 11, 2020 2:14 PM Aysha Son APRN.ANTONIETA 12/11/2020 2:25 PM Signed PDMP website checked and validated. All prescriptions have been APPROPRIATELY filled. No suspicious activity was identified. 12/11/2020 by Aysha Son APRN.SIGNALMAN Allergies As of Date: 12/11/2020 (No Known Allergies) Date Reviewed: 10/13/2020 Reviewed by: Aysha Son APRN.SIGNALMAN - Fully Assessed Reason for Visit: Refill Request [94] Visit Diagnosis:Generalize d anxiety disorder [F41.1] Order(s):clonazePAM (KLONOPIN) 0.5 mg tabletTake 1/2-1 tablet once daily as needed for anxietyDisp: 20 tabletRfl: 0 FLUoxetine HCl (PROZAC) 40 mg capsuleTake 1 capsule by mouth once daily.Disp: 90 capsuleRfl: 0 topiramate (TOPAMAX) 50 mg tabletTake 1 tablet by mouth once daily.Disp: 90 tabletRfl: 0 Prescriptions as of 12/11/2020 - clonazePAM (KLONOPIN) 0.5 mg tablet Take 1/2-1 tablet once daily as needed for anxiety - FLUoxetine HCl (PROZAC) 40 mg capsule Take 1 capsule by mouth once daily. - topiramate (TOPAMAX) 50 mg tablet Take 1 tablet by mouth once daily. - propranolol (INDERAL) 20 mg tablet Take 1 tablet by mouth twice daily. - rizatriptan (MAXALT) 10 mg tablet Take 1 tablet by mouth as needed. AT ONSET OF HEADACHE. MAY REPEAT AFTER 2 HOURS. DO NOT EXCEED 30 MG PER DAY. Medication notes this encounter CLONAZEPAM 0.5 MG TABLET >> Aysha Sno APRN.ANTONIETA 12/11/2020 2:24 PM needs to be sent to another pharmacy Problem List As Of Date 12/11/2020 Noted Resolved Pituitary Adenoma [D35.2] 11/05/2009 Thyroid nodule [E04.1] 09/18/2010 Intractable chronic migraine without aura and w*09/21/2019 Migraine without aura and without status migrai*01/29/2020 Prescriptions ordered this encounter Disp Refills Start End CLONAZEPAM 0.5 MG TABLET 20 t* 0 12/11/2020 01/11/2021 Sig: Take 1/2-1 tablet once daily as needed for anxiety FLUOXETINE 40 MG CAPSULE 90 c* 0 12/11/2020 03/11/2021 Route: ORAL Sig: Take 1 capsule by mouth once daily. TOPIRAMATE 50 MG TABLET 90 t* 0 12/11/2020 03/11/2021 Route: ORAL Sig: Take 1 tablet by mouth once daily. Medications Discontinued During This Encounter Prescriptions - clonazePAM (KLONOPIN) 0.5 mg tablet (Discontinued) Take 1/2-1 tablet once daily as needed for anxiety - topiramate (TOPAMAX) 50 mg tablet (Discontinued) Take 1 tablet by mouth once daily. - FLUoxetine HCl (PROZAC) 40 mg capsule (Discontinued) Take 1 capsule by mouth once daily. Encounter Status:Closed by AYSHA SON on 12/11/20 [facility] JESSICA EIA W/REFLEX 5 BIOMARKER Son 12-08-2020 JESSICA Direct Negative Normal Negative [facility] Comment on above: Performed By: #### A NARF #### [facility] [address] [place] [address] Dr. Dustin Rodriguez OBSOLETEon 12-07-2020 OBSOLETE Refill (PSMMMR) LAKEISHA AMBROSIO ([id number]) 1980 F Date Time Provider Department 12/07[facility]20 [facility] During your visit today, we recorded the following information about you: Aysha Son APRN.CNP 12/08/2020 8:42 AM Signed Patient is currently scheduled for upcoming appointment on 01/12/21 [facility] website checked and validated. All prescriptions have been APPROPRIATELY filled. No suspicious activity was identified. 12/08/2020 by Aysha Son APRN.CNP Allergies As of Date: 12/07/2020 (No Known Allergies) Date Reviewed: 10/13/2020 Reviewed by: Aysha Son APRN.CNP - Fully Assessed Reason for Visit: Refill Request [94] Visit Diagnosis:Generalize d anxiety disorder [F41.1] Order(s):topiramate (TOPAMAX) 50 mg tabletTake 1 tablet by mouth once daily.Disp: 90 tabletRfl: 0 FLUoxetine HCl (PROZAC) 40 mg capsuleTake 1 capsule by mouth once daily.Disp: 90 capsuleRfl: 0 clonazePAM (KLONOPIN) 0.5 mg tabletTake 1/2-1 tablet once daily as needed for anxietyDisp: 20 tabletRfl: 0 Prescriptions as of 12/08/2020 - topiramate (TOPAMAX) 50 mg tablet Take 1 tablet by mouth once daily. - FLUoxetine HCl (PROZAC) 40 mg capsule Take 1 capsule by mouth once daily. - clonazePAM (KLONOPIN) 0.5 mg tablet Take 1/2-1 tablet once daily as needed for anxiety - rizatriptan (MAXALT) 10 mg tablet Take 1 tablet by mouth as needed. AT ONSET OF HEADACHE. MAY REPEAT AFTER 2 HOURS. DO NOT EXCEED 30 MG PER DAY. - propranolol (INDERAL) 20 mg tablet Take 1 tablet by mouth twice daily. Problem List As Of Date 12/07/2020 Noted Resolved Pituitary Adenoma [D35.2] 11/05/2009 Thyroid nodule [E04.1] 09/18/2010 Intractable chronic migraine without aura and w*09/21/2019 Migraine without aura and without status migrai*01/29/2020 Prescriptions ordered this encounter Disp Refills Start End TOPIRAMATE 50 MG TABLET 90 t* 0 12/08/2020 03/08/2021 Route: ORAL Sig: Take 1 tablet by mouth once daily. FLUOXETINE 40 MG CAPSULE 90 c* 0 12/08/2020 03/08/2021 Route: ORAL Sig: Take 1 capsule by mouth once daily. CLONAZEPAM 0.5 MG TABLET 20 t* 0 12/08/2020 01/08/2021 Sig: Take 1/2-1 tablet once daily as needed for anxiety Medications Discontinued During This Encounter Prescriptions - topiramate (TOPAMAX) 50 mg tablet (Discontinued) Take 1 tablet by mouth once daily. - FLUoxetine HCl (PROZAC) 40 mg capsule (Discontinued) Take 1 capsule by mouth once daily. - clonazePAM (KLONOPIN) 0.5 mg tablet (Discontinued) Take 1/2-1 tablet once daily as needed for anxiety Encounter Status:Closed by AYSHA SON on 12/08/20 [facility] CBC AUTO DIFFon 12-04-2020 BASO # 0.0 103/ul Normal 0.0-0.1 [facility] Comment on above: Performed By: #### C ####[facility] [address] [place] [id number]. Dustin Rodriguez Basophils/100 WBC (Bld) 0.5 % Normal 0.2-2.0 [facility] Comment on above: Performed By: #### C BC ####[facility] [address] [place] [id number]. Dustin Rodriguez EO # 0.1 103/ul Normal 0.0-0.7 [facility] Comment on above: Performed By: #### C BC ####[facility] [address] [place], [place] [id number]. Dustin Rodriguez Eosinophils/100 WBC (Bld) 1.0 % Normal 0.9-7.0 [facility] Comment on above: Performed By: #### C BC ####[facility] [address] [place], [place] [address]Dr. Dustin Rodriguez Erythrocyte distribution width (RBC) [Ratio] 12.9 % Normal 11.0-15.0 [facility] Comment on above: Performed By: #### C BC ####[facility] [address] [place], [place] [address]Dr. Dustin Rodriguez Hematocrit (Bld) [Volume fraction] 40.7 % Normal 36.0-48.0 [facility] Comment on above: Performed By: #### C BC ####[facility] [address] [place] [id number]. Dustin Rodriguez Hemoglobin (Bld) [Mass/Vol] 13.4 g/dL Normal 12.0-16.0 [facility] Comment on above: Performed By: #### C BC ####[facility] [address] [place], [place] [address]Dr. Dustin Rodriguez IG # 0.02 10e3/ul Normal 0.00-0.03 [facility] Comment on above: Performed By: #### C BC ####[facility] [address] [place], [place] [address]Dr. Dustin Rodriguez IG % 0.2 % Normal 0.0-0.5 [facility] Comment on above: Performed By: #### C BC ####[facility] [address] [place] [id number]. Dustin Rodriguez LYMPH # 2.8 103/ul Normal 1.2-3.8 [facility] Comment on above: Performed By: #### C BC ####[facility] [address] [place], [place] [address]Mc. Dustin Rodriguez Lymphocytes/100 WBC (Bld) 34.4 % Normal 20.5-60.0 [facility] Comment on above: Performed By: #### C BC ####[facility] [address] [place] [id number]. Dustin Rodriguez MANUAL DIFF REQ NO Normal [facility] Comment on above: Performed By: #### C BC ####[facility] [address] [place] [id number]. Dustin Michael MCH (RBC) [Entitic mass] 30.5 pg Normal 26.7-34.0 [facility] Comment on above: Performed By: #### C BC ####[facility] [address] [place] [id number]. Dustin Rodriguez MCHC (RBC) [Mass/Vol] 32.9 g/dL Normal 29.9-35.2 [facility] Comment on above: Performed By: #### C BC ####[facility] [address] [place] [id number]. Dustin Michael MCV (RBC) [Entitic vol] 92.5 fL Normal 81.0-99.0 [facility] Comment on above: Performed By: #### C BC ####[facility] [address] [place] [id number]. Dustin Rodriguez MONO # 0.5 103/ul Normal 0.3-0.8 [facility] Comment on above: Performed By: #### C BC ####[facility] [address] [place] [id number]. Dustin Michael Monocytes/100 WBC (Bld) 6.2 % Normal 1.7-12.0 [facility] Comment on above: Performed By: #### C BC ####[facility] [address] [place] [id number]. Makennasteven Rodriguez NEUT # 4.7 103/ul Normal 1.4-6.5 [facility] Comment on above: Performed By: #### C BC ####[facility] [address] [place] [id number]. Dustin Rodriguez Neutrophils/100 WBC (Bld) 57.7 % Normal 43.0-75.0 [facility] Comment on above: Performed By: #### C BC ####[facility] [address] [place] [id number]. Dustin Rodriguez Platelet mean volume (Bld) [Entitic vol] 10.1 fL Normal 9.5-13.5 [facility] Comment on above: Performed By: #### C BC ####[facility] [address] [place] [id number]. Dustin Rodriguez PLT 307 103/ul Normal 150-450 [facility] Comment on above: Performed By: #### C BC ####[facility] [address] [place] [id number]. Dustin Rodriguez RBC 4.40 106/ul Normal 4.20-5.40 [facility] Comment on above: Performed By: #### C BC ####[facility] [address] [place] [id number]. Dustin Rodriguez WBC 8.2 103/ul Normal 4.0-11.0 [facility] Comment on above: Performed By: #### C BC ####[facility] [address] [place] [id number]. Dustin Rodriguez PROF 14(COMP METB)on 021 Albumin [Mass/Vol] 3.6 g/dL Normal 3.5-5.0 [facility] Comment on above: Performed By: #### T RAEANN, CMP #### [facility] [address] [place], [place] [address] Dr. Dustin Rodriguez Albumin/Globulin [Mass ratio] 1.0 {ratio} Normal [facility] Comment on above: Performed By: #### T RAEANN, CMP #### [facility] [address] [place] [address] [address] Dustin Rodriguez ALP [Catalytic activity/Vol] 118 U/L Normal 38-126 [facility] Comment on above: Performed By: #### T SH, CMP #### [facility] [address] [place] [address] [address] Dustin Rodriguez ALT [Catalytic activity/Vol] 26 U/L Normal 9-52 [facility] Comment on above: Performed By: #### T SH, CMP #### [facility] [address] [place] [address] [address] Dustin Rodriguez Anion gap [Moles/Vol] 8.3 mmol/L Normal [facility] Comment on above: Performed By: #### T SH, CMP #### [facility] [address] [place] [address] Dr. Dustin Rodriguez AST [Catalytic activity/Vol] 24 U/L Normal 14-36 [facility] Comment on above: Performed By: #### T SH, CMP #### [facility] [address] [place] [address] Dr. Dustin Rodriguez Bilirubin [Mass/Vol] 0.3 mg/dL Normal 0.2-1.3 [facility] Comment on above: Performed By: #### T SH, CMP #### [facility] [address] [place] [address] Dr. Dustin Rodriguez Calcium [Mass/Vol] 9.0 mg/dL Normal 8.4-10.2 [facility] Comment on above: Performed By: #### T SH, CMP #### [facility] [address] [place] [address] Dr. Dustin Rodriguez Chloride [Moles/Vol] 105 mmol/L Normal 98-107 [facility] Comment on above: Performed By: #### T SH, CMP #### [facility] [address] [place] [address] Dr. Dustin Rodriguez CO2 [Moles/Vol] 29.1 mmol/L Normal 22.0-30.0 [facility] Comment on above: Performed By: #### T SH, CMP #### [facility] [address] [place] [address] Dr. Dustin Rodriguez Creatinine [Mass/Vol] 0.95 mg/dL Normal 0.52-1.04 [facility] Comment on above: Performed By: #### T SH, CMP #### [facility] [address] [place] [address] [address] Dustin Rodriguez EGFR-AF MONEGASQUE >60 Normal >=60 [facility] Comment on above: Performed By: #### T SH, CMP #### [facility] [address] [place] [address] Dr. Dustin Rodriguez EGFR-NON AF MONEGASQUE >60 Normal >=60 [facility] Comment on above: Performed By: #### T RAEANN, CMP #### [facility] [address] [place] [address] Dr. Dustin Rodriguez Globulin (S) [Mass/Vol] 3.7 g/dL Normal [facility] Comment on above: Performed By: #### T RAEANN, CMP #### [facility] [address] [place] [address] Dr. Dustin Rodriguez Glucose [Mass/Vol] 86 mg/dL Normal 74-106 [facility] Comment on above: Performed By: #### T RAEANN, CMP #### [facility] [address] [place] [address] Dr. Dustin Rodriguez Potassium [Moles/Vol] 3.4 mmol/L Normal 3.4-5.0 [facility] Comment on above: Performed By: #### T RAEANN, CMP #### [facility] [address] [place] [address] Dr. Dustin Rodriguez Protein [Mass/Vol] 7.3 g/dL Normal 6.1-8.2 [facility] Comment on above: Performed By: #### T SH, CMP #### [facility] [address] [place] [address] Dr. Dustin Rodriguez Sodium [Moles/Vol] 139 mmol/L Normal 137-145 [facility] Comment on above: Performed By: #### T RAEANN, CMP #### [facility] [address] [place] [address] Dr. Dustin Rodriguez Urea nitrogen [Mass/Vol] 10.0 mg/dL Normal 7.0-17.0 [facility] Comment on above: Performed By: #### T SH, CMP #### [facility] [address] [place] [address] Dr. Dustin Rodriguez Urea nitrogen/Creatinine [Mass ratio] 10.5 mg/mg Normal [facility] Comment on above: Performed By: #### T SH, CMP #### [facility] [address] [place] [address] Dr. Dustin Rodriguez TSHon 12-04-2020 TSH 0.911 uIU/mL Normal 0.470-4.680 [facility] Comment on above: Performed By: #### T SH, CMP #### [facility] [address] [place] [address] Dr. Dustin Rodriguez TSH RANGE SEE BELOW Normal [facility] Comment on above: Result Comment: <0.3 4 UIU/ml HYPERTHYROID 0.34-5.60 UIU/ml EUTHYROID >5.60 UIU/ml HYPOTHYROID Performed By: #### T SH, CMP #### [facility] [address] [place] [address] Dr. Dustin Rodriguez OBSOLETEon 10-09-2020 OBSOLETE Refill (PSMMMR) LAKEISHA AMBROSIO ([id number]) 1980 F Date Time Provider Department 10/09/20 [facility] During your visit today, we recorded the following information about you: Aysha Son APRN.CNP 10/09/2020 12:53 PM Signed Patient is currently scheduled for upcoming appointment on October 13, 2020 Allergies As of Date: 10/09/2020 (No Known Allergies) Date Reviewed: 07/15/2020 Reviewed by: Aysha Son APRN.SIGNALMAN - Fully Assessed Reason for Visit: Refill Request [94] Visit Diagnosis:Generalize d anxiety disorder [F41.1] Order(s):topiramate (TOPAMAX) 25 mg tabletTAKE 1 TABLET BY MOUTH EVERYDAY AT BEDTIMEDisp: 30 tabletRfl: 0 Prescriptions as of 10/09/2020 - topiramate (TOPAMAX) 25 mg tablet TAKE 1 TABLET BY MOUTH EVERYDAY AT BEDTIME - rizatriptan (MAXALT) 10 mg tablet Take 1 tablet by mouth as needed. AT ONSET OF HEADACHE. MAY REPEAT AFTER 2 HOURS. DO NOT EXCEED 30 MG PER DAY. - FLUoxetine HCl (PROZAC) 40 mg capsule Take 1 capsule by mouth once daily. - clonazePAM (KLONOPIN) 0.5 mg tablet Take 1/2-1 tablet once daily as needed for anxiety - propranolol (INDERAL) 20 mg tablet Take 1 tablet by mouth twice daily. 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 Encounter Status:Closed by AYSHA SON on 10/09/20 [facility] CBC Auto DifferentialOrdered By: Lisa Gaona on 06-03-2020 Absolute Eos # <0.[address] [facility] Work Phone: Absolute Immature Granulocyte <0.03 [employer] Work Phone: Absolute Lymph # 1.14 [facility] Work Phone: Absolute [place] # 0.27 [facility] Work Phone: Basophils (Bld) [#/Vol] 10*3/uL [employer] Phone: Basophils/100 WBC (Bld) 0 % 0 - 2 % [employer] Phone: Differential Type NOT REPORTED [employer] Phone: Eosinophils/100 WBC (Bld) 0 % Low 1 - 4 % [employer] Phone: Hematocrit (Bld) [Volume fraction] 44.0 % 36.3 - 47.1 % [employer] Phone: Hemoglobin.gastrointes tinal spec 1 Ql (Stl) 14.6 g/dL 11.9 - 15.1 g/dL [employer] Phone: Immature granulocytes/100 WBC (Bld) 0 % 0 [employer] Phone: Interpretation and review of laboratory results Abnormal [employer] Phone: Lymphocytes/100 WBC (Bld) 24 % 24 - 43 % [employer] Phone: MCH (RBC) [Entitic mass] 29.0 pg 25.2 - 33.5 pg [employer] Phone: MCHC (RBC) [Mass/Vol] 33.2 g/dL 28.4 - 34.8 g/dL [employer] Phone: MCV (RBC) [Entitic vol] 87.5 fL 82.6 - 102.9 fL [employer] Phone: Monocytes/100 WBC (Bld) 6 % 3 - 12 % [employer] Phone: NRBC Automated 0.0 0.0 per 100 WBC [employer] Phone: Platelet distribution width (Bld) [Ratio] 13.0 % 11.8 - 14.4 % [employer] Phone: Platelet Estimate NOT REPORTED [employer] Phone: Platelet mean volume (Bld) [Entitic vol] NOT REPORTED 8.1 - 13.5 fL [employer] Phone: Platelets (Bld) [#/Vol] See Reflexed IPF Result [employer] Phone: RBC (Bld) [#/Vol] 5.03 10*6/uL 3.95 - 5.1 1 m/uL [employer] Phone: RBC (Bld) [#/Vol] NOT REPORTED [employer] Phone: Segmented neutrophils/100 WBC (Bld) 70 % High 36 - 65 % [employer] Work Phone: Segs Absolute 3.26 [employer] Work Phone: WBC (Bld) [#/Vol] 4.7 10*3/uL [employer] Phone: WBC (Bld) [#/Vol] NOT REPORTED [employer] Phone: CBC with Diffon 06-03-2020 Abs. Basophil <0.03 Normal 0.00-0.20 [facility] Comment on above: Performed By: #### I MAUREEN BARBOZA, CP #### [facility] [address] [place] [address] [place] [address] [place]: Sarah Dumont MD Abs. Eosinophil <0.03 Normal 0.00-0.44 [facility] Comment on above: Performed By: #### I MAUREEN BARBOZA, CP #### [facility] [address] [place] [address] [place]: Sarah Dumont MD Abs.Imm.Granulocyte <0.03 Normal 0.00-0.30 [facility] Comment on above: Performed By: #### I MAUREEN BARBOZA, CP #### [facility] [address] [place] [address] [place]: Sarah Dumont MD Abs.Neutrophil (Seg) 3.26 k/uL Normal 1.50-8.10 [facility] Comment on above: Performed By: #### I MAUREEN BARBOZA, CP #### [address] [place], [place] [id number] [place]: Sarah Dumont MD Basophils/100 WBC (Bld) 0 % Normal 0-2 [facility] Comment on above: Performed By: #### I MAUREEN BARBOZA, CP #### [address] [place], [facility] [place]: Sarah Dumont MD Eosinophils/100 WBC (Bld) 0 % Low 1-4 [facility] Comment on above: Performed By: #### I MAUREEN BARBOZA, CP #### [address] [place], [facility] [place]: Sarah Dumont MD Erythrocyte distribution width (RBC) [Ratio] 13.0 % Normal 11.8-14.4 [facility] Comment on above: Performed By: #### I MAUREEN BARBOZA, CP #### [address] [place], [facility] [place]: Sarah Dumont MD Hematocrit (Bld) [Volume fraction] 44.0 % Normal 36.3-47.1 [facility] Comment on above: Performed By: #### I MAUREEN BARBOZA, CP #### [address] [place], [facility] [place]: Sarah Dumont MD Hemoglobin (Bld) [Mass/Vol] 14.6 g/dL Normal 11.9-15.1 [facility] Comment on above: Performed By: #### I MAUREEN BARBOZA, CP #### [address] [place], [place] [phone] [place]: Sarah Dumont MD Immature granulocytes/100 WBC (Bld) 0 % Normal 0 [facility] Comment on above: Performed By: #### I PF CDP, CP #### [facility] [address] [place], [place] [id number] [place]: Sarah Dumont MD Lymphocytes (Bld) [#/Vol] 1.14 10*3/uL Normal 1.10-3.70 [facility] Comment on above: Performed By: #### I JABARI CDP, CP #### [address] [place], [facility] [place]: Sarah Dumont MD Lymphocytes/100 WBC (Bld) 24 % Normal 24-43 [facility] Comment on above: Performed By: #### I MAUREEN BARBOZA, CP #### [address] [place], [facility] [place]: Sarah Dumont MD MCH (RBC) [Entitic mass] 29.0 pg Normal 25.2-33.5 [facility] Comment on above: Performed By: #### I MAUREEN BARBOZA, CP #### [address] [place], [facility] [place]: Sarah Dumont MD MCHC (RBC) [Mass/Vol] 33.2 g/dL Normal 28.4-34.8 [facility] Comment on above: Performed By: #### I MAUREEN BARBOZA, CP #### [address] [place], [facility] [place]: Sarah Dumont MD MCV (RBC) [Entitic vol] 87.5 fL Normal 82.6-102.9 [facility] Comment on above: Performed By: #### I JABARI CDP, CP #### [address] [place], [place] [id number] [place]: Sarah Dumont MD Monocytes (Bld) [#/Vol] 0.27 10*3/uL Normal 0.10-1.20 [facility] Comment on above: Performed By: #### I MAUREEN BARBOZA, CP #### [facility] [address] [place], [place] [id number] [place]: Sarah Dumont MD Monocytes/100 WBC (Bld) 6 % Normal 3-12 [facility] Comment on above: Performed By: #### I PF, CDP, CP #### [facility] [address] [place], [place] [phone] [place]: Sarah Dumont MD Neutrophil (Seg) 70 % High 36-65 [facility] Comment on above: Performed By: #### I PF, CDP, CP #### [address] [place], [place] [phone] [place]: Sarah Dumont MD NRBC Automated 0.0 per 100 WBC Normal 0.0 [facility] Comment on above: Performed By: #### I PF, CDP, CP #### [address] [place] [address] [place]: Sarah Dumont MD Platelet Count See Reflexed IPF Result Normal 138-453 [facility] Comment on above: Performed By: #### I PF, CDP, CP #### [address] [place], [place] [phone] [place]: Sarah Dumont MD RBC (Bld) [#/Vol] 5.03 10*6/uL Normal 3.95-5.11 [facility] Comment on above: Performed By: #### I PF, CDP, CP #### [address] [place], [place] [phone] [place]: Sarah Dumont MD WBC (Bld) [#/Vol] 4.7 10*3/uL Normal 3.5-11.3 [facility] Comment on above: Performed By: #### I PF, CDP, CP #### [address] [place], [place] [phone] [place]: Sarah Dumont MD Auto Diff Performed NOT REPORTED Normal [facility] Comment on above: Performed By: #### I PF, CDP, CP #### [facility] [address] [place] [address] [place] [address] [place]: Sarah Dumont MD MPV NOT REPORTED Normal 8.1-13.5 [facility] Comment on above: Performed By: #### I PF, CDP, CP #### [facility] [address] [place] [address] [place] [address] [place]: Sarah Dumont MD Platelet Estimate NOT REPORTED Normal [facility] Comment on above: Performed By: #### I PF, CDP, CP #### [address] [place] [address] [place]: Sarah Dumont MD RBC morphology finding Nom (Bld) NOT REPORTED Normal [facility] Comment on above: Performed By: #### I PF, CDP, CP #### [facility] [address] [address] [place] [address] [place] [address] Fisher Lobster: Sarah Dumont MD WBC Morphology NOT REPORTED Normal [facility] Comment on above: Performed By: #### I PF, CDP, CP #### [facility] [address] [place] [address] [address] [place], [place] [id number] Fisher Lobster: Sarah Dumont MD COVID-19, RapidOrdered By: Petrona Gaona on 06-03-2020 Interpretation and review of laboratory results Abnormal [facility] Work Phone: SARS-CoV-2 (COVID-19) RNA MELISSA+probe Ql (Unsp spec) Detected Abnormal Not Detected [facility] Work Phone: Comment on above: Rapid NAAT: The specimen is POSITIVE for SARS-Cov-2, the novel coronavirus associated with COVID-19. This test has been authorized by the FDA under an Emergency Use Authorization (EUA) for use by authorized laboratories. The ID NOW COVID-19 assay is designed to detect the virus that causes COVID-19 in patients with signs and symptoms of infection who are suspected of COVID-19. An individual without symptoms of COVID-19 and who is not shedding SARS-CoV-2 virus would expect to have a negative (not detected) result in this assay. Fact sheet for Healthcare Providers: https://www.fda.gov/media/952404/download Fact sheet for Patients: https://www.fda.gov/media/643717/download Methodology: Isothermal Nucleic Acid Amplification Results reported to the appropriate Health Department Specimen Description .NASOPHARYNGEAL SWAB [facility] Work Phone: Comp Metabolic Profon 2020 (cont.) Normal [facility] Comment on above: Result Comment: Aver age GFR for 40-49 years old: 99 mL/min/1.73sq m Chronic Kidney Disease: <60 mL/min/1.73sq m Kidney failure: <15 mL/min/1.73sq m eGFR calculated using average adult body mass. Additional eGFR calculator available at: http://www.PathGroup.[employer] NanoWorks/multiple_crcl_2012.htm Performed By: #### I MAUREEN BARBOZA, CP #### [facility] [address] [place] [address] [place] [address] Fisher Lobster: Sarah Dumont MD Albumin [Mass/Vol] 4.2 g/dL Normal 3.5-5.2 [facility] Comment on above: Performed By: #### I MAUREEN BARBOZA, CP #### [facility] [address] [place] [address] Fisher Lobster: Sarah Dumont MD Albumin/Glob Ratio 1.3 Normal 1.0-2.5 [facility] Comment on above: Performed By: #### I MAUREEN BARBOZA, CP #### [address] [place] [address] Fisher Lobster: Sarah Dumont MD Alkaline Phos 127 U/L High 35-104 [facility] Comment on above: Performed By: #### I MAUREEN BARBOZA, CP #### [facility] [address] [place], [place] [phone] Fisher Lobster: Sarah Dumont MD ALT [Catalytic activity/Vol] 32 U/L Normal 5-33 [facility] Comment on above: Performed By: #### I PF, CDP, CP #### [facility] [address] [place], [place] [id number] Fisher Lobster: Sarah Dumont MD Anion gap [Moles/Vol] 13 mmol/L Normal 9-17 [facility] Comment on above: Performed By: #### I PF, CDP, CP #### [address] [place], [place] [phone] Fisher Lobster: Sarah Dumont MD AST [Catalytic activity/Vol] 35 U/L High <32 [facility] Comment on above: Performed By: #### I PF, CDP, CP #### [address] [place], [place] [phone] Fisher Lobster: Sarah Dumont MD Bilirubin [Mass/Vol] 0.41 mg/dL Normal 0.3-1.2 [facility] Comment on above: Performed By: #### I PF, CDP, CP #### [address] [place], [place] [phone] Fisher Lobster: Sarah Dumont MD BUN/CRE Ratio 12 Normal 9-20 [facility] Comment on above: Performed By: #### I PF, CDP, CP #### [facility] [address] [place] [address] [address] [place], [place] [phone] Fisher Lobster: Sarah Dumont MD Calcium [Mass/Vol] 8.6 mg/dL Normal 8.6-10.4 [facility] Comment on above: Performed By: #### I PF, CDP, CP #### [facility] [address] [place] [address] [address] [place], [place] [phone] Fisher Lobster: Sarah Dumont MD Chloride [Moles/Vol] 106 mmol/L Normal 98-107 [facility] Comment on above: Performed By: #### I PF CDP, CP #### [facility] [address] [place], [place] [phone] Fisher Lobster: Sarah Dumont MD CO2 [Moles/Vol] 22 mmol/L Normal 20-31 [facility] Comment on above: Performed By: #### I PF CDP, CP #### [facility] [address] [place], [place] [phone] Fisher Lobster: Sarah Dumont MD Creatinine [Mass/Vol] 1.17 mg/dL High 0.50-0.90 [facility] Comment on above: Performed By: #### I MAUREEN BARBOZA, CP #### [facility] [address] [place], [place] [phone] Fisher Lobster: Sarah Dumont MD GFR, Amer >60 Normal >60 [facility] Comment on above: Performed By: #### MAUREEN PATEL, CP #### [facility] [address] [place], [place] [phone] Fisher Lobster: Sarah Dumont MD GFR,non Amer 51 mL/min Low >60 [facility] Comment on above: Performed By: #### I MAUREEN BARBOZA, CP #### [facility] [address] [place], [place] [phone] Fisher Lobster: Sarah Dumont MD Glucose [Mass/Vol] 136 mg/dL High 70-99 [facility] Comment on above: Performed By: #### I PF CDP, CP #### [facility] [address] [place], [place] [phone] Fisher Lobster: Sarah Dumont MD Potassium [Moles/Vol] 3.5 mmol/L Low 3.7-5.3 [facility] Comment on above: Performed By: #### I PF CDP, CP #### [facility] [address] [place] [address] [place] [address] Fisher Lobster: Sarah Dumont MD Protein [Mass/Vol] 7.4 g/dL Normal 6.4-8.3 [facility] Comment on above: Performed By: #### I PF CDP, CP #### [address] [place] [address] Fisher Lobster: Sarah Dumont MD Sodium [Moles/Vol] 141 mmol/L Normal 135-144 [facility] Comment on above: Performed By: #### I MAUREEN BARBOZA, CP #### [address] [place] [address] Fisher Lobster: Sarah Dumont MD Staging: Normal [facility] Comment on above: Result Comment: Stag e 1: Some kidney damage normal GFR Stage 2: Mild kidney damage GFR 60-89 Stage 3: Moderate kidney damage GFR 30-59 Stage 4: Severe kidney damage GFR 15-29 Stage 5: Severe kidney damage GFR <15 ESRD - chronic treatment by dialysis or transplant Performed By: #### I MAUREEN BARBOZA, CP #### [address] [place] [address] Fisher Lobster: Sarah Dumont MD Urea nitrogen [Mass/Vol] 14 mg/dL Normal 6-20 [facility] Comment on above: Performed By: #### I MAUREEN BARBOZA, CP #### [address] [place] [address] Fisher Lobster: Sarah Dumont MD Comprehensive Metabolic Pane lOrdered By: Lisa Gaona on 06-03-2020 Albumin [Mass/Vol] 4.2 g/dL 3.5 - 5.2 g/dL [facility] Work Phone: Albumin/Globulin [Mass ratio] 1.3 {ratio} [facility] Work Phone: ALP (Bld) [Catalytic activity/Vol] 127 U/L High 35 - 104 U/L [employer] Phone: ALT [Catalytic activity/Vol] 32 U/L 5 - 33 U/L [employer] Phone: Anion gap [Moles/Vol] 13 mmol/L 9 - 17 mmol/L [employer] Phone: AST [Catalytic activity/Vol] 35 U/L High <32 [employer] Phone: Bilirubin [Mass/Vol] 0.41 mg/dL 0.3 - 1 .2 mg/dL [employer] Phone: Calcium [Mass/Vol] 8.6 mg/dL 8.6 - 10. 4 mg/dL [employer] Phone: Chloride [Moles/Vol] 106 mmol/L 98 - 10 7 mmol/L [employer] Phone: CO2 [Moles/Vol] 22 mmol/L 20 - 31 mmol/L [employer] Phone: Creatinine [Mass/Vol] 1.17 mg/dL High 0.50 - 0.90 mg/dL [employer] Phone: Free PSA/Total PSA [Mass fraction] 7.4 g/dL 6.4 - 8.3 g/dL [employer] Phone: GFR >60 >60 mL/min [employer] Phone: GFR Non- 51 mL/min Low >60 [employer] Phone: Glucose [Mass/Vol] 136 mg/dL High 70 - 99 mg/dL [employer] Phone: Interpretation and review of laboratory results Abnormal [employer] Phone: Potassium [Moles/Vol] 3.5 mmol/L Low 3.7 - 5.3 mmol/L [employer] Phone: Sodium [Moles/Vol] 141 mmol/L 135 - 144 mmol/L [facility] Phone: Urea nitrogen (BldV) [Mass/Vol] 14 mg/dL 6 - 20 mg/dL [facility] Phone: Urea nitrogen/Creatinine (Bld) [Mass ratio] 12 [facility] Phone: Immature Platelet FractionOr dered By: Lisa Jimenez on 06-03-2020 Platelet, Fluorescence [address] [employer] Work Phone: Platelet, Immature Fraction 1.2 % 1.1 - 10.3 % [facility] Phone: Laboratory - Chemistry and C hemistry - challengeOrdered By: Lisalivier Gaona on 06-03-2020 GFR/1.73 sq M.predicted MDRD (S/P/Bld) [Vol rate/Area] [facility] Phone: Comment on above: Average GFR for 40-4 9 years old: 99 mL/min/1.73sq m Chronic Kidney Disease: <60 mL/min/1.73sq m Kidney failure: <15 mL/min/1.73sq m eGFR calculated using average adult body mass. Additional eGFR calculator available at: http://www.Hoods/multiple_crcl_2012.htm Stage 1: Some kidney damage normal GFR Stage 2: Mild kidney damage GFR 60-89 Stage 3: Moderate kidney damage GFR 30-59 Stage 4: Severe kidney damage GFR 15-29 Stage 5: Severe kidney damage GFR <15 ESRD - chronic treatment by dialysis or transplant Microscopic UrinalysisOrdere d By: Lisa Gaona on 06-03-2020 - [employer] Work Phone: Amorphous, UA NOT REPORTED None [facility] Work Phone: Bacteria, UA TRACE Abnormal None [facility] Work Phone: Casts UA NOT REPORTED /LPF [facility] Work Phone: Crystals, UA NOT REPORTED None /HPF [facility] Work Phone: Epithelial Cells UA 2 TO 5 [facility] Work Phone: Interpretation and review of laboratory results Abnormal [facility] Work Phone: Mucus, UA NOT REPORTED None [facility] Work Phone: Other Observations UA NOT REPORTED NOT REQ. M erc [employer] Work Phone: RBC, UA 0 TO 2 [facility] Work Phone: Renal Epithelial, UA NOT REPORTED 0 /HPF [facility] Work Phone: Trichomonas, UA NOT REPORTED None [facility] Work Phone: WBC, UA 2 TO 5 [facility] Work Phone: Yeast, UA NOT REPORTED None [facility] Work Phone: PLT, Immature Fract.on 06-03 Platelet, Fluoresc. 146 k/uL Normal 138-453 [facility] Comment on above: Performed By: #### I PF CDP, CP #### [facility] [address] [place] [address] Fisher Lobster: Sarah Dumont MD PLT, Immature Fract. 1.2 % Normal 1.1-10.3 [facility] Comment on above: Performed By: #### I PF CDP, CP #### [facility] [address] [place] [address] Fisher Lobster: Sarah Dumont MD [id number] 06-03-2020 SARS-CoV-2 (COVID-19) RNA MELISSA+probe Ql (Unsp spec) Detected Abnormal NOTDET [facility] Comment on above: Result Comment: Rapid NAAT: The specimen is POSITIVE for SARS-Cov-2, the novel coronavirus associated with COVID-19. This test has been authorized by the FDA under an Emergency Use Authorization (EUA) for use by authorized laboratories. The ID NOW COVID-19 assay is designed to detect the virus that causes COVID-19 in patients with signs and symptoms of infection who are suspected of COVID-19. An individual without symptoms of COVID-19 and who is not shedding SARS-CoV-2 virus would expect to have a negative (not detected) result in this assay. Fact sheet for Healthcare Providers: https://www.fda.gov/media/101849/download Fact sheet for Patients: https://www.fda.gov/media/487894/download Methodology: Isothermal Nucleic Acid Amplification Results reported to the appropriate Health Department Performed By: #### C OVRB #### [facility] [address] [place] [address] Fisher Lobster: Sarah Dumont MD TSH without ReflexOrdered By : Lsia Gaona on 06-03-2020 TSH Qn 0.84 m[IU]/L [facility] Work Phone: Thyroid Stim. Horm.on 2020 TSH Qn 0.84 m[IU]/L Normal 0.30-5.00 [facility] Comment on above: Performed By: #### T SH #### [facility] [address] [place] [address] Fisher Lobster: Sarah Dumont MD UA w/Reflex Cultureon 2020 Acetoacetic Acid,Ur 2+ Abnormal NEG [facility] Comment on above: Performed By: #### U LISY UAX #### [facility] [address] [place] [address] Fisher Lobster: Sarah Dumont MD Bilirubin, SemiQt,Ur SMALL Abnormal NEG [facility] Comment on above: Performed By: #### U LISY UAX #### [facility] [address] [place] [address] Fisher Lobster: Sarah Dumont MD Color (U) YELLOW Normal YEL [facility] Comment on above: Performed By: #### U LISY UAX #### [facility] [address] [place] [address] [address] [place], [place] [phone] Fisher Lobster: Sarah Dumont MD Glucose Ql (U) Negative Normal NEG [facility] Comment on above: Performed By: #### U MICAO, UAX #### [facility] [address] [place] [address] [address]. [place], [place] [phone] Fisher Lobster: Sarah Dumont MD Hemoglobin, Ur 3+ Abnormal NEG [facility] Comment on above: Performed By: #### U MICAO, UAX #### [facility] [address] [place] [address] [address]. [place], [place] [phone] Fisher Lobster: Sarah Dumont MD Leukocyte esterase Test strip Ql (U) Negative Normal NEG [facility] Comment on above: Performed By: #### U MICAO, UAX #### [address] [place], [place] [phone] Fisher Lobster: Sarah Dumont MD Nitrite,Ur Negative Normal [facility] Comment on above: Performed By: #### U MICAO, UAX #### [address] [place], [place] [phone] Fisher Lobster: Sarah Dumont MD PH,Ur 6.0 Normal 5.0-9.0 [facility] Comment on above: Performed By: #### U MICAO, UAX #### [facility] [address] [place] [address] Dr. [place], [id number] Fisher Lobster: Sarah Dumont MD Protein Ql (U) 1+ Abnormal NEG [facility] Comment on above: Performed By: #### U MICAO, UAX #### [address] [place], [place] 8282383 Fisher Lobster: Sarah Dumont MD Spec. [place],Ur 1.025 High 1.010-1.020 [facility] Comment on above: Performed By: #### U MICAO, UAX #### [facility] [address] [place] [address] [place] [address] Fisher Lobster: Sarah Dumont MD Turbidity CLEAR Normal CLEAR [facility] Comment on above: Performed By: #### U MICAO, UAX #### [facility] [address] [place], [place] 8094983 Fisher Lobster: Sarah Dumont MD Urobilinogen,Ur Normal Normal NORM [facility] Comment on above: Performed By: #### U MICAO, UAX #### [facility] [address] [place], [place] [phone] Fisher Lobster: Sarah Dumont MD Comment NOT REPORTED Normal [facility] Comment on above: Performed By: #### U MICAO, UAX #### [facility] [address] [place] [address] Fisher Lobster: Sarah Dumont MD Urinalysis Reflex to Culture Ordered By: Lisa Gaona on 06-03-2020 Bilirubin Urine SMALL Abnormal NEGATIVE [facility] Work Phone: Color, UA YELLOW YELLOW [facility] Work Phone: Glucose, Ur Negative NEGATIVE [facility] [employer] Work Phone: Interpretation and review of laboratory results Abnormal [facility] Work Phone: Ketones Ql (U) 2+ Abnormal NEGATIVE [facility] Work Phone: Leukocyte esterase Test strip Ql (U) Negative NEGATIVE [facility] [employer] Work Phone: Nitrite, Urine Negative NEGATIVE [facility] Work Phone: pH, UA 6.0 [employer] Work Phone: Protein, UA 1+ Abnormal NEGATIVE [facility] [employer] Work Phone: Specific [place], UA 1.025 High [employer] Work Phone: Turbidity UA CLEAR CLEAR [facility] [employer] Work Phone: Urinalysis Comments NOT REPORTED [facility] [employer] Work Phone: Urine Hgb 3+ Abnormal NEGATIVE [facility] [employer] Phone: Urobilinogen, Urine Normal Normal [facility] Phone: Urinalysis,Microon 1 ----- Normal [facility] Comment on above: Performed By: #### U MICAO, UAX #### [facility] [address] [place], [place] [phone] Fisher Lobster: Sarah Dumont MD Bacteria TRACE Abnormal NONE [facility] Comment on above: Performed By: #### U MICAO, UAX #### [facility] [address] [place], [place] [phone] Fisher Lobster: Sarah Dumont MD Epithelial cells LM Ql (Urine sed) 2 TO 5 Normal 0-25 [facility] Comment on above: Performed By: #### U MICAO, UAX #### [facility] [address] [place], [place] 940[address]83 Fisher Lobster: Sarah Dumont MD Urine RBC's 0 TO 2 Normal 0-2 [facility] Comment on above: Performed By: #### U MICAO, UAX #### [facility] [address] [place] [address] Fisher Lobster: Sarah Dumont MD Urine WBC's 2 TO 5 Normal 0-5 [facility] Comment on above: Performed By: #### U MICAO, UAX #### [facility] [address] [place], [place] [phone] Fisher Lobster: Sarah Dumont MD Amorphous sediment LM Ql (Urine sed) NOT REPORTED Normal [facility] Comment on above: Performed By: #### U MICAO, UAX #### [facility] [address] [place], [place] [phone] Fisher Lobster: Sarah Dumont MD Casts NOT REPORTED Normal [facility] Comment on above: Performed By: #### U EDGARDOO, UAX #### [facility] [address] [place], [place] 760[address]83 Fisher Lobster: Sarah Dumont MD Crystals LM Nom (Urine sed) NOT REPORTED Normal NONE [facility] Comment on above: Performed By: #### U EDGARDOO, UAX #### [facility] [address] [place] [address] Fisher Lobster: Sarah Dumont MD Epithelial, Renal NOT REPORTED Normal 0 [facility] Comment on above: Performed By: #### U MICAO, UAX #### [facility] [address] [place], [place] [phone] Fisher Lobster: Sarah Dumont MD Mucus Strands NOT REPORTED Normal NONE [facility] Comment on above: Performed By: #### U EDGARDOO, UAX #### [facility] [address] [place] [address] Fisher Lobster: Sarah Dumont MD Other Observations NOT REPORTED Normal NREQ [facility] Comment on above: Performed By: #### U MICAO, UAX #### [facility] [address] [place] [address] Fisher Lobster: Sarah Dumont MD Trichomonas NOT REPORTED Normal NONE [facility] Comment on above: Performed By: #### U MICAO, UAX #### [facility] [address] [place] [address] Fisher Lobster: Sarah Dumont MD Yeast NOT REPORTED Normal [facility] Comment on above: Performed By: #### U MICAO, UAX #### [facility] [address] [place] [address] Fisher Lobster: Sarah Dumont MD XR CHEST PORTABLEon 06-04-19 XR CHEST PORTABLE EXAMINATION: ONE XRAY VIEW OF THE CHEST 06/03/2020 3:45 pm COMPARISON: None. HISTORY: ORDERING SYSTEM PROVIDED HISTORY: covid TECHNOLOGIST PROVIDED HISTORY: covid FINDINGS: Cardiomediastinal silhouette is normal in size. There are patchy bilateral pulmonary opacities. No pleural effusion or pneumothorax. There is a 5 mm right lower lobe nodule. No acute osseous abnormality. IMPRESSION: 1. Patchy bilateral pulmonary opacities, concerning for multifocal pneumonia. 2. 5 mm right lower lobe nodule. Short interval follow-up radiograph or CT may be useful for further characterization. Interpreted by: Giulia Gallardo MD Signed by: Giulia Gallardo MD 06/03/20 Final result Normal [facility] XR CHEST PORTABLEOrdered By: Lisa Gaona on 06-03-2020 1. Patchy bilateral pulmonary opacities, concerning for multifocal pneumonia. 2. 5 mm right lower lobe nodule. Short interval follow-up radiograph or CT may be useful for further characterization. [employer] Phone: EXAMINATION: ONE XRAY VIEW OF THE CHEST 06/03/2020 3:45 pm COMPARISON: None. HISTORY: ORDERING SYSTEM PROVIDED HISTORY: covid TECHNOLOGIST PROVIDED HISTORY: covid FINDINGS: Cardiomediastinal silhouette is normal in size. There are patchy bilateral pulmonary opacities. No pleural effusion or pneumothorax. There is a 5 mm right lower lobe nodule. No acute osseous abnormality. [employer] Phone: [place], [facility] Incoming Radiant Results From [facility] - 06/03/2020 3:52 PM EDT EXAMINATION: ONE XRAY VIEW OF THE CHEST 06/03/2020 3:45 pm COMPARISON: None. HISTORY: ORDERING SYSTEM PROVIDED HISTORY: covid TECHNOLOGIST PROVIDED HISTORY: covid FINDINGS: Cardiomediastinal silhouette is normal in size. There are patchy bilateral pulmonary opacities. No pleural effusion or pneumothorax. There is a 5 mm right lower lobe nodule. No acute osseous abnormality. IMPRESSION: 1. Patchy bilateral pulmonary opacities, concerning for multifocal pneumonia. 2. 5 mm right lower lobe nodule. Short interval follow-up radiograph or CT may be useful for further characterization. [employer] Phone: Vital Signs Date Time Vital Sign Value Performing Clinician Facility 01-25-2024 09:55-0500 Diastolic blood pressure 88 mm[Hg] Rui San SIEBEL ARCHITECT.SIGNALMAN Work Phone: [facility] 01-25-2024 09:55-0500 Heart rate 100 /min Rui San SIEBEL ARCHITECT.SIGNALMAN Work Phone: [facility] 01-25-2024 09:55-0500 SaO2% (BldA) [Mass fraction] 98 % Rui San SIEBEL ARCHITECT.SIGNALMAN Work Phone: [facility] 01-25-2024 09:55-0500 Systolic blood pressure 129 mm[Hg] Rui San SIEBEL ARCHITECT.SIGNALMAN Work Phone: [facility] 06-27-2023 08:30-0400 Body height 157.48 cm [facility] 06-27-2023 08:30-0400 Body mass index (BMI) [Ratio] 27.8 kg/m2 [facility] 06-27-2023 08:30-0400 Body weight 69.17 kg [facility] 06-27-2023 08:30-0400 Diastolic blood pressure 75 mm[Hg] [facility] 06-27-2023 08:30-0400 Heart rate 71 /min [facility] 06-27-2023 08:30-0400 Systolic blood pressure 107 mm[Hg] [facility] 04-29-2023 10:25-0400 Body height 157.48 cm [facility] 04-29-2023 10:25-0400 Body mass index (BMI) [Ratio] 27.5 kg/m2 [facility] 04-29-2023 10:25-0400 Body weight 68.26 kg [facility] 04-29-2023 10:25-0400 Diastolic blood pressure 87 mm[Hg] [facility] 04-29-2023 10:25-0400 Heart rate 92 /min [facility] 04-29-2023 10:25-0400 Systolic blood pressure 117 mm[Hg] [facility] 07-01-2022 11:45-0400 Body height 157.48 cm Mindi Michelle Other [employer] Other 07-01-2022 11:45-0400 Body mass index (BMI) [Ratio] 29.81 kg/m2 Mindi Michelle Other [employer] Other 07-01-2022 11:45-0400 Body weight 73.94 kg Mindi Michelle Other [employer] Other 07-01-2022 11:45-0400 Diastolic blood pressure 88 mm[Hg] Mindiyasmin Michelle Other [employer] Other 07-01-2022 11:45-0400 Systolic blood pressure 111 mm[Hg] Mindiyasmin Michelle Other [employer] Other 05-12-2022 10:25-0400 Body height 157.48 cm Felipa Hernándezmond Other [employer] Other 05-12-2022 10:25-0400 Body mass index (BMI) [Ratio] 29.81 kg/m2 Felipa Hernándezmond Other [employer] Other 05-12-2022 10:25-0400 Body temperature 97.6 [degF] Felipa Hernándezmond Other [employer] Other 05-12-2022 10:25-0400 Body weight 73.94 kg Felipa Hernándezmond Other [employer] Other 05-12-2022 10:25-0400 Respiratory rate 18 /min Felipa Cassandra Other [employer] Other 05-12-2022 10:25-0400 SaO2% (BldA) [Mass fraction] 99 % Felipa Cassandra Other [facility] Other 2021 09:00-0400 Body height 157.48 cm Liyah Francis Other [facility] Other 2021 09:00-0400 Body mass index (BMI) [Ratio] 31.09 kg/m2 Liyah Francis Other [facility] Other 2021 09:00-0400 Body weight 77.11 kg Liyah Francis Other [facility] Other 06-03-2020 16:09-0400 Diastolic blood pressure 77 mm[Hg] Mindi Michelle MD Work Phone: [employer] Work Phone: 06-03-2020 16:09-0400 Heart rate 74 /min Mindi Michelle MD Work Phone: [employer] Work Phone: 06-03-2020 16:09-0400 Respiratory rate 16 /min Mindi Michelle MD Work Phone: [employer] Work Phone: 06-03-2020 16:09-0400 SaO2% (BldA) [Mass fraction] 96 % Mindi Michelle MD Work Phone: [employer] Work Phone: 06-03-2020 16:09-0400 Systolic blood pressure 117 mm[Hg] Mindi Michelle MD Work Phone: [employer] Work Phone: 06-03-2020 14:21-0400 Body temperature 98.01 [degF] Mindi Michelle MD Work Phone: [employer] Work Phone: 06-03-2020 14:21-0400 Body weight 73.48 kg Mindi Michelle MD Work Phone: [facility] Work Phone: Encounters Encounter Date Encounter Type Care Provider Facility Start: 02-25-2024 End: 02-25-2024 ambulatory Sohan Wilkerson MD Work Phone: Neurology Comment on above: Paresthesia (Primary Dx); Burning sensation Start: 02-25-2024 End: 02-25-2024 Telemedicine consultation with patient Sohan Wilkerson MD Work Phone: Neurology Start: 02-02-2024 End: 02-02-2024 ambulatory Chen Ballard MD Work Phone: [facility] Comment on above: Diffuse pain (Primar y Dx); Chronic fatigue and malaise; Brain fog; Post-acute sequelae of COVID-19 (PASC); Memory deficit Start: 02-02-2024 End: 02-02-2024 Telemedicine consultation with patient Chen Ballard MD Work Phone: [facility] Start: 01-27-2024 End: 01-27-2024 ambulatory Rui Briseida Lochan SIEBEL ARCHITECT.SIGNALMAN Work Phone: [facility] Start: 01-27-2024 End: 01-27-2024 Patient encounter procedure Rui Briseida Lochan SIEBEL ARCHITECT.SIGNALMAN Work Phone: [facility] Comment on above: Dehydration Start: 01-25-2024 End: 01-25-2024 ambulatory MINDI MICHELLE Facility:[facility] Start: 01-25-2024 End: 01-25-2024 Patient encounter procedure Rui Briseida Lochan SIEBEL ARCHITECT.SIGNALMAN Work Phone: [facility] Comment on above: Diffuse pain (Primar y Dx); Nerve pain; Burning sensation; Pain in joint, multiple sites; Arm heaviness; Hip pain, unspecified laterality; Hypersomnia; Sleep disturbance; Activity intolerance; Chronic fatigue and malaise; Anxiety and depression; Mood changes; Brain fog; Difficulty concentrating; Memory changes; Cognitive communication deficit; Post-acute sequelae of COVID-19 (PASC) Start: 01-24-2024 End: 01-24-2024 E-mail encounter from caregiver Rui San APRN.ANTONIETA Work Phone: [facility] Start: 01-24-2024 End: 01-24-2024 Patient encounter procedure Rui San SIEBEL ARCHITECTMARGI Work Phone: [facility] Comment on above: Welcome to [facility]! Start: 01-05-2024 End: 01-05-2024 ambulatory [facility] Start: 12-01-2023 End: 12-14-2023 Telephone encounter Rui San ANATOLIY Work Phone: [facility] Comment on above: Appointment Start: 09-09-2023 End: 09-09-2023 ambulatory [facility] Start: 08-02-2023 End: 08-02-2023 [facility] Start: 07-08-2023 End: 07-08-2023 [facility] Start: 06-27-2023 End: 06-27-2023 ambulatory [facility] Work Phone: Start: 06-27-2023 End: 06-27-2023 Patient encounter procedure [facility] Work Phone: Start: 06-10-2023 End: 06-10-2023 [facility] Start: 05-12-2023 End: 05-12-2023 ambulatory [facility] Start: 04-29-2023 End: 04-29-2023 ambulatory [facility] Work Phone: Start: 04-29-2023 End: 04-29-2023 Patient encounter procedure [facility] Work Phone: Start: 04-21-2023 Non-patient / Non-visit [facility] Work Phone: Start: 04-06-2023 End: 04-06-2023 ambulatory MINDI Reeves MICHELLE [facility] Start: 03-23-2023 End: 03-23-2023 ambulatory MINDI MICHELLE [facility] Start: 02-28-2023 End: 02-28-2023 ambulatory Mindi Michelle Other [facility] Other Start: 02-28-2023 Telephone encounter Mindi Michelle [facility] Start: 01-21-2023 End: 01-21-2023 ambulatory Mindi Michelle Other [facility] Other Start: 01-21-2023 Telephone encounter Mindi Michelle [facility] Start: 12-24-2022 End: 12-24-2022 ambulatory Mindi Michelle Other [facility] Other Start: 12-24-2022 Telephone encounter Mindi Michelle [facility] Start: 11-25-2022 End: 11-25-2022 ambulatory Mindi Michelle Other [facility] Other Start: 11-25-2022 Telephone encounter Mindi Michelle [facility] Start: 10-25-2022 End: 10-25-2022 ambulatory Mindi Michelle Other [facility] Other Start: 10-25-2022 Telephone encounter Mindi Michelle [facility] Start: 10-05-2022 End: 10-05-2022 ambulatory Mindi Reeves Michelle Facility:[facility] Start: 09-27-2022 End: 09-27-2022 ambulatory Mindi Michelle Other [facility] Other Start: 09-27-2022 Telephone encounter Mindi Michelle [facility] Start: 08-29-2022 Ever Son APRN.SIGNALMAN Work Phone: Psychiatry Comment on above: Refill Request; Refi ll Request Start: 08-24-2022 End: 08-24-2022 ambulatory Mindi Michelle Other [facility] Other Start: 08-24-2022 Telephone encounter Mindiyasmin Michelle [facility] Start: 08-09-2022 End: 08-09-2022 ambulatory Mindi Michelle Other [facility] Other Start: 08-09-2022 Telephone encounter Mindi Viviana [facility] Start: 07-19-2022 End: 07-19-2022 ambulatory Mindi Michelle Other [facility] Other Start: 07-19-2022 Telephone encounter Mindi Michelle [facility] Start: 07-01-2022 End: 07-01-2022 ambulatory Mindi Michelle Other [facility] Other Start: 07-01-2022 Office outpatient vi sit 25 minutes Mindi Michelle [facility] Start: 06-28-2022 End: 06-28-2022 ambulatory Mindi Viviana Other [facility] Other Start: 06-28-2022 Telephone encounter Mindi Viviana [facility] Start: 06-10-2022 End: 06-10-2022 ambulatory Mindi Michelle Other [facility] Other Start: 06-10-2022 Telephone encounter Mindi Viviana [facility] Start: 05-12-2022 End: 05-12-2022 ambulatory Felipa Trujillo Other [facility] Other Start: 05-12-2022 Office outpatient vi sit 15 minutes Felipajonas Trujillo [facility] Start: 04-14-2022 End: 04-14-2022 ambulatory Mindi Michelle Other [facility] Other Start: 04-14-2022 Telephone encounter Mindi Viviana [facility] Start: 03-15-2022 End: 03-15-2022 ambulatory Mindi Michelle Other [facility] Other Start: 03-15-2022 Telephone encounter Mindi Mcihelle [facility] Start: 02-21-2022 Refill Aysha Son SIEBEL ARCHITECT.SIGNALMAN Work Phone: Psychiatry Comment on above: Refill Request Start: 2021 Office outpatient ne w 30 minutes [facility] Start: 2021 End: 2021 [facility] Start: 11-05-2021 End: 11-06-[address] MINDI MICHELLE Facility:[facility] Start: 10-06-2021 Gynecological examination normal Mindi Michelle Other [facility] Other Start: 09-03-2021 End: 09-03-2021 [facility] Aysha Son SIEBEL ARCHITECT.SIGNALMAN Work Phone: Psychiatry Comment on above: Generalized anxiety disorder Start: 07-25-2021 Refill Aysha Son SIEBEL ARCHITECT.SIGNALMAN Work Phone: Psychiatry Comment on above: Refill Request Start: 06-16-2021 End: 06-17-2021 ambulatory RIVERO H FAWWAD Facility:[facility] Start: 03-30-2021 End: 03-31-2021 ambulatory RIVERO H FAWWAD Facility:[facility] Start: 03-24-2021 End: 03-25-2021 ambulatory RIVERO H FAWWAD Facility:[facility] Start: 02-09-2021 End: 02-09-2021 ambulatory RIVERO H FAWWAD Facility:[facility] Start: 01-05-2021 End: 01-06-2021 ambulatory RIVERO H FAWWAD Facility:[facility] Start: 12-17-2020 End: 12-18-2020 ambulatory RIVERO H FAWWAD Facility:[facility] Start: 12-04-2020 End: 12-05-2020 [facility] Start: 06-03-2020 End: 06-03-2020 Emergency department patient visit MINDI MICHELLE [facility] Start: 06-03-2020 End: 06-03-2020 Emergency department patient visit Mindi Michelle MD Work Phone: [facility] ED Comment on above: COVID-19 (Primary Dx ); Lung nodule Procedures Date Procedure Procedure Detail Performing Clinician Start: 01-04-2022 Colonoscopy Rui San APRN.SIGNALMAN Work Phone: Start: 06-03-2020 Radiologic exam chest single view Suo Yi PA-C Work Phone: Start: 06-03-2020 Ecg routine ecg w/least 12 lds w/i&r Suo Yi PA-C Work Phone: Start: 06-03-2020 Urinalysis microscopic only Suo Yi PA-C Work Phone: Start: 06-03-2020 Urnls dip stick/tablet rgnt auto w/o microscopy Suo Yi PA-C Work Phone: Start: 06-03-2020 COVID-19, RAPID Suo Yi PA-C Work Phone: Start: 06-03-2020 Comprehensive metabolic panel Suo Yi PA-C Work Phone: Start: 06-03-2020 IMMATURE PLATELET FRACTION Suo Yi PA-C Work Phone: Start: 09-20-2019 Adult depression screening assessment Aysha Son APRN.SIGNALMAN Work Phone: Start: 09-14-2005 Contraception care education Mindi Michelle Other Start: 09-14-2005 visit Mindi Michelle Other Laboratory test resu lt abnormal Abnormal laboratory test result Rui San APRN.SIGNALMAN Work Phone: Removal of intrauter ine device Mindi Michelle Other Screening for malign ant neoplasm of breast Mindi Michelle Other Plan of Treatment Date Care Activity Detail Author Start: 01-24-2027 Diabetes Screening Diabetes Screenin g [facility] Start: 04-23-2024 End: 04-23-2024 Patient encounter procedure 04/23/2024 10:00 AM EDT Office Visit Rheumatology [address] [place] [address] [place] [address] [facility] [address] Diffuse pain [R52] Rheumatology Comment on above: Diffuse pain [R52] Start: 03-19-2024 End: 03-19-2024 Follow-up encounter 03/19/2024 4:00 PM EST [facility] Pulmonology [facility] [address] [place] [address] Rui San APRN.SIGNALMAN [address] [place] [address] recover follow up Pulmonology [facility] Comment on above: recover follow up Start: 03-09-2024 End: 03-09-2024 ambulatory 03/09/2024 11:00 AM [facility] Neurology [address] [place] [address] Lucretia Pina MD [address] [facility] [place] [address] Hypersomnia [G47.10] Neurology Comment on above: Hypersomnia [G47.10] Start: 02-25-2024 End: 02-25-2024 ambulatory 02/25/2024 2:00 PM EST [facility] Neurology [address] [place] [id number] Sohan Wilkerson MD [address] [place] [address] Diffuse pain [R52] Neurology Comment on above: Diffuse pain [R52] Start: 02-03-2024 End: 05-04-2024 Basic metabolic 2000 panel - Serum or Plasma BASIC METABOLIC PANEL Lab Routine Low serum potassium Abnormal laboratory test result Expected: 02/03/2024, Expires: 05/04/2024 [facility] Work Phone: Comment on above: Expected: 02/03/2024 , Expires: 05/04/2024 Start: 02-02-2024 End: 02-02-2024 ambulatory 02/02/2024 4:00 PM EST [facility] [place] [address] Chen Ballard MD [address] [place], [place] [id number] Diffuse pain [R52] [facility] Comment on above: Diffuse pain [R52] Start: 02-01-2024 End: 02-01-2024 ambulatory 02/01/2024 11:00 AM EST [facility] [place] [address] Chen Ballard MD [address] [place] [address] Diffuse pain [R52] [facility] Comment on above: Diffuse pain [R52] Start: 01-25-2024 End: 04-25-2024 25-hydroxyvitamin D3 [Mass/volume] in Serum or Plasma [facility] Comment on above: Expected: 01/25/2024 , Expires: 04/25/2024 Start: 01-25-2024 End: 04-25-2024 C reactive protein [Mass/volume] in Serum or Plasma [facility] Comment on above: Expected: 01/25/2024 , Expires: 04/25/2024 Start: 01-25-2024 End: 04-25-2024 CBC W Auto Differential panel - Blood [facility] Work Phone: Comment on above: Expected: 01/25/2024 , Expires: 04/25/2024 Start: 01-25-2024 End: 04-25-2024 Cobalamin (Vitamin B12) [Mass/volume] in Serum or Plasma [facility] Comment on above: Expected: 01/25/2024 , Expires: 04/25/2024 Start: 01-25-2024 End: 04-25-2024 Comprehensive metabolic 2000 panel - Serum or Plasma [facility] Comment on above: Expected: 01/25/2024 , Expires: 04/25/2024 Start: 01-25-2024 End: 04-25-2024 Ferritin [Mass/volume] in Serum or Plasma [facility] Comment on above: Expected: 01/25/2024 , Expires: 04/25/2024 Start: 01-25-2024 End: 04-25-2024 Fibrin D-dimer FEU [Mass/volume] in Platelet poor plasma [facility] Comment on above: Expected: 01/25/2024 , Expires: 04/25/2024 Start: 01-25-2024 End: 04-25-2024 Folate [Mass/volume] in Serum or Plasma [facility] Comment on above: Expected: 01/25/2024 , Expires: 04/25/2024 Start: 01-25-2024 End: 04-25-2024 Natriuretic peptide.B prohormone N-Terminal [Mass/volume] in Serum or Plasma [facility] Comment on above: Expected: 01/25/2024 , Expires: 04/25/2024 Start: 01-25-2024 End: 04-25-2024 OMEGACHECK [facility] Comment on above: Expected: 01/25/2024 , Expires: 04/25/2024 Start: 01-25-2024 End: 04-25-2024 Thyrotropin [Units/volume] in Serum or Plasma [facility] Comment on above: Expected: 01/25/2024 , Expires: 04/25/2024 Start: 01-25-2024 End: 04-25-2024 TRACE ELEMENTS/TPN [facility] Comment on above: Expected: 01/25/2024 , Expires: 04/25/2024 Start: 01-25-2024 End: 01-25-2024 Patient encounter procedure 01/25/2024 10:00 AM EST Office Visit Pulmonology [facility] [address] [place], [place] [id number] Rui San APRN.SIGNALMAN [address] [place] [address] Brain fog, tiredness, chronic pain, loss of hair all since covid Pulmonology [facility] Comment on above: Brain fog, tiredness , chronic pain, loss of hair all since covid Start: 11-19-2023 Diabetes Screening Diabetes Screenin g [facility] Start: 11-19-2023 Lipid panel Lipid Screening [facility] Start: 11-19-2023 Screening for malign ant neoplasm of colon [facility] Start: 10-16-2023 Covid-19 Vaccine ( season) Covid-19 Vaccine ( season) [facility] Start: 10-16-2023 Influenza vaccination Influenza Vacc ine (#1) [facility] Start: 10-15-2022 Influenza vaccination INFLUENZA (#1) [facility] Start: 02-14-2022 DEPRESSION ASSESSMENT DEPRESSION ASS ESSMENT [facility] Start: 10-15-2021 Influenza vaccination [facility] Start: 10-15-2020 Influenza vaccination Flu vacc ine (Season Ended) [employer] Phone: Start: 09-19-2020 Adult depression screening assessment DEPRESSION SCREENING [facility] Start: 2018 [facility]id [facility] Phone: Start: 2018 Mammography MAMMOGRAM [facility] Start: 2018 Screening for malign ant neoplasm of breast Mammogram Screening [facility] Start: 2008 HPV TESTING HPV TESTING [facility] Start: 11-19-1999 PAP TESTING PAP TESTING [facility] Start: 11-19-1999 Screening for malign ant neoplasm of cervix [facility] Start: 1997 DTaP/Tdap/Td vaccine (1 - Tdap) DTaP/Tdap/Td vaccine (1 - Tdap) [employer] Phone: Start: 1997 Hepatitis B Vaccine (1 of 3 - 19+ 3-dose series) Hepatitis B Vaccine (1 of 3 - 19+ 3-dose series) [facility] Start: 1997 Urine microalbumin profile [facility] Start: 1996 Anxiety Screening Anxiety Screening [facility] Start: 1996 Depression Screening Depression Scre ening [facility] Start: 1996 HEPATITIS C SCREENING HEPATITIS C [facility] Start: 1996 Hepatitis C screening Hepatitis C [facility] Start: 1996 HIV SCREENING HIV SCREENING [facility] Start: 1996 HIV screening HIV Screening [facility] Start: 1994 COVID-19 Vaccine (1) COVID-19 Vaccin e (1) [employer] Phone: Start: 1993 [facility] screening [facility] Work Phone: Start: 11-19-1983 COVID-19 VACCINE (#1) COVID-19 VACCI NE (#1) [facility] Start: 05-20-1979 COVID-19 VACCINE (#1) COVID-19 VACCI NE (#1) [facility] Start: 1978 HEPATITIS B (1 of 3 - 3-dose series) HEPATITIS B (1 of 3 - 3-dose series) [facility] Start: 1978 Hepatitis C screening Hepatitis C [facility] Phone: BACH SCREENING TEST BACH SCREENI NG TEST Procedures Routine Brain fog Difficulty concentrating Memory changes Cognitive communication deficit Post-acute sequelae of COVID-19 (PASC) Ordered: 01/25/2024 [facility] Comment on above: Ordered: 01/25/2024 EKG 12 Lead EKG 12 Lead ECG STAT 06/03/2020 3:10 PM EDT [employer] Phone: [facility] Payers Date Payer Category Payer Unknown [id number] 2021 Blue Cross Blue Shield [facility] [id number] 2020 Unknown [id number] 2020 Unknown [id number] .[id number] 2020 Medicaid [employer] MEDICAID [id number] 2020-Present [phone] [address] [place] [address] Medicaid [id number] 2020 Medicaid [id number] .[id number] 1978 Unknown [id number] 2.16.840.1.005595.3.579.2.1 73 1978 Unknown [id number] 2.16.840.1.672298.3.579.2.5 93 1978 Unknown [id number] 2.16.840.1.466104.3.579.2.5 93 1978 Unknown [id number] 2.16.840.1.858099.3.579.2.5 93 1978 Unknown [id number] 2.16.840.1.650581.3.579.2.5 93 1978 Unknown [id number] 2.16.840.1.469265.3.579.2.5 93 1978 Unknown [id number] 2.16.840.1.060960.3.579.2.5 93 1978 Unknown [id number] 2.16.840.1.803125.3.579.2.5 93 1978 Unknown [id number] 2.16.840.1.552674.3.579.2.5 93 1978 Unknown [id number] 2.16.840.1.214955.3.579.2.1 286 1978 Unknown [id number] 2.16.840.1.141614.3.579.2.1 286 1978 Unknown [id number] 2.16.840.1.314853.3.579.2.1 286 1978 Unknown [id number] 2.16.840.1.103714.3.579.2.1 286 1978 Unknown [id number] 2.16.840.1.072987.3.579.2.1 286 1978 Unknown [id number] 2.16.840.1.227960.3.579.2.1 286 1978 Unknown [id number] 2.16.840.1.077607.3.579.2.1 286 1978 Unknown [id number] 2.16.840.1.161050.3.579.2.1 286 1959 Self-pay 1959 Unknown [id number] [id number] .[id number] 1959 Unknown [id number] 1959 Unknown [id number] Medicaid [id number] [id number] Unknown [id number] 2.16.840.1.954881.3.579.2.5 31 Unknown [id number] 2.16.840.1.419723.3.579.2.5 31 Unknown [facility] [id number] Social History Date Type Detail Facility Start: 09-18-2010 End: 06-03-2020 Tobacco smoking status [facility] Never smoker [facility] Start: 09-18-2010 End: 06-03-2020 Tobacco use and exposure Never used [employer] Start: 1980 Sex Assigned At Not on file [employer] Phone: Exposure to SARS-CoV -2 (event) Not sure [employer] Start: 04-10-2021 End: 01-25-2024 Alcohol intake Current non-drinker of alcohol (finding) [facility] Start: 08-24-2021 End: 09-03-2021 Exposure to SARS-CoV-2 (event) Unable to assess [facility] Start: 09-03-2021 End: 01-25-2024 Sex Assigned At [facility] Start: 09-03-2021 End: 01-25-2024 History of Social function [facility] National Score (1-100), lower number is lower risk 82 [facility] Start: 12-21-2019 Gender identity Identifies as female gender (finding) [facility] Start: 1980 Sex Assigned At Female F [facility] Clinical Notes 06-03-2020 to 02-25-2024 Sohan Wilkerson MD - 02/25/2024 2:00 PM Chen Juarez MD - 02/02/2024 4:00 PM ESTTelephone Encounter - Bea Francis RN - 01/27/2024 1:28 PM ESTPatient Instructions Note Date & Type Note Facility 02-25-2024 History of Presen t illness Narrative I received consent from the patient to perform the visit as a virtual encounter. 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 This is . Lakeisha Jerry, a 43 year old female who presents to the [facility] Neurology clinic with chief complaints of pain and fatigue. Impression Burning sensation Paresthesia This is an apparently challenging case. Healthy prior to COVID infection May 2020. Symptoms seem to have come on suddenly around that time and seem to have persisted. Multiple symptoms. Pain in numerous locations. Burning sensation in the arms. Paresthesias in the legs. Brain fog. Low mood (although well supported by local psychiatrist). No answers thus far from a medical perspective, but from a primarily neurologic perspective seems to have undergone less workup (e.g., no MRI, no EMG). Less clear to me by virtual visit if this is a primarily neurologic disorder per se. For these neurologic symptoms of some other issue? We will start with a careful neurologic baseline exam. B12, TSH, and folate were all recently normal range. Plan Keep follow-up with sleep medicine Follow-up with me at 11:30 AM or 4:30 PM for careful baseline neurologic assessment Sohan Wilkerson MD Staff, [facility] [place] HPI: This is Ms. Lakeisha Jerry, a 43 year old female who presents to the [facility] Neurology clinic with chief complaints of pain and fatigue. 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 COVID May 2020 Healthy before, nothing ever hurt Symptoms seem to have come on suddenly Arms get way worse with use Dropping things Breaking dishes Can't carry laundry basket Pressure almost helps Does great with rest Has been to so many doctors On ADHD meds Has had no workup as far as arms, etc No MRI No EMG Did go to rheumatology about arms/hands Bloodwork clean >>> She hurts all over Chest sometimes hurts She thinks it is joints that hurt more than muscles She does not wake up feeling refreshed Takes Vyvanse at 4-5 AM, feels ready at 6 AM Without Vyvanse, would not wake up and could not get up During this time, sleep has felt so good Almost euphoric Endorses brain fog Mood Has psychiatrist close to home Really bad bouts Sad that there is no answer Meds Vyvanse Clonipin PRN Started for shaking after COVD Trying to get off this Low dose naltrexone For inflammation, pain Maxalt Migraines Never on cymbalta Was on gabapentin Makes her dumb No history of diabetes. No history of cancer or exposure to chemotherapy. No restrictive diet. No history of HIV. No history of significant alcohol intake. + family history of neuropathy. Mom - chemo + history of dry eye. + history of dry mouth. No history of heavy metal exposure. No history of stomach surgery. Past history per chart review includes: Past medical history, problem list: Anxiety, hyperprolactinoma, psoriasis, chronic migraine, thyroid nodule Past surgical history: Family history: Thyroid (sister) Diabetes (maternal grandmother) Social history: Non-smoker No alcohol OBJECTIVE: PHYSICAL EXAM: Formal exam was not performed today Our time together was conversational This note was partially created using voice recognition software and is inherently subject to errors including those of syntax and sound-alike substitutions which may escape proofreading. In such instances, original meaning may be extrapolated by contextual derivation. I spent a total of 35 minutes on the date of the service which included time spent preparing to see the patient, talking to the patient/documenting in the chart, documenting in the chart after the visit, arranging for follow-up. documented in this encounter [facility] 02-02-2024 History of Presen t illness Narrative Images from the original note were not included. Consultation requested by Rui San APRN, ANTONIETA for an opinion regarding Long COVID. My final recommendations will be communicated back to the requesting physician by way of shared Medical record or letter to requesting physician via [place] mail. 43 year old female virtual visit for an Integrative Medicine consultation (Dept of Wellness & Preventive Medicine, [facility]) I have communicated my name and active licensure. The patient's identity and physical location were verified at the time of this visit. Either the patient or their legal congressional representative has been informed of the risks and benefits of -- and alternatives to -- treatment through a remote evaluation and consents to proceed with the evaluation remotely. ASSESSMENT / PLAN: Diffuse pain Chronic fatigue and malaise Brain fog Memory deficit Post-acute sequelae of COVID-19 Post COVID systemic inflammation has been the cause of all of these issues. She has heard of LDN therapy in COVID Facebook group but did not in detail. I explained about it today, and she agreed to proceed. Naltrexone 1.5 mg per day for 3 days Then 3 mg for 3 days Then 4.5 mg for 2 weeks Then 6 mg for 3 months or longer as needed Vyvance (Rx by PCP) has been helping very much for fatigue issue. If LDN works, the next goal is to discontinue Vyvance. Follow up visit in 1 month HISTORY OF PRESENT ILLNESS: Chief complaint -- Long MACARIO Tested COVID positive in May 2020 for the first time Since then, she has had lingering sx Chronic fatigue, memory deficit, brain fog Also has had whole body pain which was new Chronic pain in forearms, wrists, low back, hip Her PCP prescribed Vyvance and it has been very helpful for her fatigue issue But no improvement for pain Patient-Entered Questionnaires 01/23/2024 [facility] Physical Function PROMIS Physical Function T-Score 32 (moderate dysfunction) 01/23/2024 [facility] Pain Interference PROMIS Pain Interference T-Score (range: 10 - 90) 74 (severe) 01/24/2024 [facility] Fatigue PROMIS Fatigue T-Score 77 (severe) 01/24/2024 [facility] Sleep Disturbance PROMIS Sleep Disturbance T-Score 52 (within normal limits) 01/24/2024 PROMIS NEUROQOL COGNITIVE T-SCORE PROMIS Neuroqol Cognitive T-Score 27 (severe dysfunction) REVIEW OF SYSTEMS See flow sheet for details GENERAL: + fatigue. No fever. No weight loss. HEENT: headache, No Nasal congestion NECK: No neck pain RESPIRATORY: No cough or SOB. CARDIOVASCULAR: No CP, palpitations, or skipped heart beat. GI: no N/V. No Constipation, bloating, heartburn. No gassiness or pain. : No pain or frequency. MUSCULOSKELETAL: + Joint pain. + muscle aches and pain, arthritis, stiffness, or weakness. SKIN: No rash or hives. No hair loss. PSYCH: No anxiety, no depression. NEURO: No dizziness. PHYSICAL EXAMINATION (virtual) General Pleasant and in no acute distress, Well appearing, Alert, Well dressed and groomed HEENT Head normocephalic, Hair normal in quality Chest and Lungs Symmetrical chest rise, Unlabored breathing, Speaking in full sentences, No nasal flaring Extremities No visualized edema or erythema, Normal hair distribution Musculoskeletal Normal in appearance, Normal ROM in spine / extremities Alert and oriented x 3, Normal gait, Normal speech, Able to stand from chair without use of arms, Tremor absent with touching nose or arms extended, Sensation intact Psych Normal posture, Normal motor behavior, Good eye contact, Attentive, Normal thought processes, Follows commands appropriately PAST MEDICAL HISTORY Diagnosis Date Generalized anxiety disorder Hyperprolactinoma (HCC) Psoriasis PAST SURGICAL HISTORY Procedure Laterality Date hem 2006 ALLERGIES No Known Allergies Current Outpatient Medications on File Prior to Visit Medication Sig lisdexamfetamine (VYVANSE) 40 mg capsule Take 40 mg by mouth every morning. clonazePAM (KLONOPIN) 0.5 mg tablet TAKE 1/2-1 TABLET ONCE DAILY NEEDED FOR ANXIETY Do not start before April 19, 2021. rizatriptan (MAXALT) 10 mg tablet Take 1 tablet by mouth as needed. AT ONSET OF HEADACHE. MAY REPEAT AFTER 2 HOURS. DO NOT EXCEED 30 MG PER DAY. No current facility-administered medications on file prior to visit. FAMILY HISTORY Problem Relation Age of Onset Diabetes Maternal Grandmother Thyroid Sister (Assessment and Plan are described above) I spent a total of 60 minutes on the date of the service which included preparing to see the patient, [id number] patient care, completing clinical documentation, obtaining and/or reviewing separately obtained history, performing a medically appropriate examination, counseling and educating the patient/family/caregiver, and ordering medications, tests, or procedures. Chen Ballard MD 02/02/2024 documented in this encounter [facility] 02-02-2024 Note HNO ID: [id number] Author: CHEN BALLARD MD Service: ? Author Type: Physician Type: Progress Notes Filed: 02/02/2024 16:31 Note Text: Consultation requested by Rui San APRN, CNP for an opinion regarding Long COVID. My final recommendations will be communicated back to the requesting physician by way of shared Medical record or letter to requesting physician via [place] mail. 43 year old female virtual visit for an Integrative Medicine consultation (Dept of Wellness AND Preventive Medicine, [facility]) I have communicated my name and active licensure. The patient's identity and physical location were verified at the time of this visit. Either the patient or their legal congressional representative has been informed of the risks and benefits of -- and alternatives to -- treatment through a remote evaluation and consents to proceed with the evaluation remotely. ASSESSMENT / PLAN: Diffuse pain Chronic fatigue and malaise Brain fog Memory deficit Post-acute sequelae of COVID-19 Post COVID systemic inflammation has been the cause of all of these issues. She has heard of LDN therapy in COVID Facebook group but did not in detail. I explained about it today, and she agreed to proceed. Naltrexone 1.5 mg per day for 3 days Then 3 mg for 3 days Then 4.5 mg for 2 weeks Then 6 mg for 3 months or longer as needed Vyvance (Rx by PCP) has been helping very much for fatigue issue. If LDN works, the next goal is to discontinue Vyvance. Follow up visit in 1 month HISTORY OF PRESENT ILLNESS: Chief complaint -- Long COVID Tested COVID positive in May 2020 for the first time Since then, she has had lingering sx Chronic fatigue, memory deficit, brain fog Also has had whole body pain which was new Chronic pain in forearms, wrists, low back, hip Her PCP prescribed Vyvance and it has been very helpful for her fatigue issue But no improvement for pain Patient-Entered Questionnaires 01/23/2024 [facility] Physical Function PROMIS Physical Function T-Score 32 (moderate dysfunction) 01/23/2024 [facility] Pain Interference PROMIS Pain Interference T-Score (range: 10 - 90) 74 (severe) 01/24/2024 [facility] Fatigue PROMIS Fatigue T-Score 77 (severe) 01/24/2024 [facility] Sleep Disturbance PROMIS Sleep Disturbance T-Score 52 (within normal limits) 01/24/2024 PROMIS NEUROQOL COGNITIVE T-SCORE PROMIS Neuroqol Cognitive T-Score 27 (severe dysfunction) REVIEW OF SYSTEMS See flow sheet for details GENERAL: + fatigue. No fever. No weight loss. HEENT: headache, No Nasal congestion NECK: No neck pain RESPIRATORY: No cough or SOB. CARDIOVASCULAR: No CP, palpitations, or skipped heart beat. GI: no N/V. No Constipation, bloating, heartburn. No gassiness or pain. : No pain or frequency. MUSCULOSKELETAL: + Joint pain. + muscle aches and pain, arthritis, stiffness, or weakness. SKIN: No rash or hives. No hair loss. PSYCH: No anxiety, no depression. NEURO: No dizziness. PHYSICAL EXAMINATION (virtual) General Pleasant and in no acute distress, Well appearing, Alert, Well dressed and groomed HEENT Head normocephalic, Hair normal in quality Chest and Lungs Symmetrical chest rise, Unlabored breathing, Speaking in full sentences, No nasal flaring Extremities No visualized edema or erythema, Normal hair distribution Musculoskeletal Normal in appearance, Normal ROM in spine / extremities Alert and oriented x 3, Normal gait, Normal speech, Able to stand from chair without use of arms, Tremor absent with touching nose or arms extended, Sensation intact Psych Normal posture, Normal motor behavior, Good eye contact, Attentive, Normal thought processes, Follows commands appropriately PAST MEDICAL HISTORY Diagnosis Date Generalized anxiety disorder Hyperprolactinoma (HCC) Psoriasis PAST SURGICAL HISTORY Procedure Laterality Date hem 2006 ALLERGIES No Known Allergies Current Outpatient Medications on File Prior to Visit Medication Sig lisdexamfetamine (VYVANSE) 40 mg capsule Take 40 mg by mouth every morning. clonazePAM (KLONOPIN) 0.5 mg tablet TAKE 1/2-1 TABLET ONCE DAILY NEEDED FOR ANXIETY Do not start before April 19, 2021. rizatriptan (MAXALT) 10 mg tablet Take 1 tablet by mouth as needed. AT ONSET OF HEADACHE. MAY REPEAT AFTER 2 HOURS. DO NOT EXCEED 30 MG PER DAY. No current facility-administered medications on file prior to visit. FAMILY HISTORY Problem Relation Age of Onset Diabetes Maternal Grandmother Thyroid Sister (Assessment and Plan are described above) I spent a total of 60 minutes on the date of the service which included preparing to see the patient, [id number] patient care, completing clinical documentation, obtaining and/or reviewing separately obtained history, performing a medically appropriate examination, counseling and educating the patient/family/caregiver, and ordering medications, tests, (more content not included)... [facility] 01-27-2024 Telephone encounter Note Spoke to Kandis at [facility] [phone] ext [phone] , she confirmed fax [phone]. BP order faxed with confirmation to [facility] lab as requested. Notified patient of the above via [email or web address]. Bea Francis RN [facility] 01-27-2024 Miscellaneous Notes Spoke to Kandis at [facility] [phone] ext [phone] , she confirmed fax [phone]. BP order faxed with confirmation to [facility] lab as requested. Notified patient of the above via [email or web address]. Bea Francis RN Consult: 01/25/2024 Follow up: 03/19/2024 documented in this encounter [facility] 01-27-2024 Telephone encounter Note Consult: 01/25/2024 Follow up: 03/19/2024 [facility] 01-25-2024 History of Presen t illness Narrative Images from the original note were not included. [facility] Initial Evaluation Lakeisha Ambrosio presents to [facility] at the request of Self for evaluation of prolonged, > 28 days, symptoms attributed to COVID-19 infection. They have requested this consultation via eConsult and will be communicated to via the EMR or [place] Post Office Correspondence. HPI: Lakeisha Ambrosio is a 43 year old female with primary symptoms as below Positive COVID-19 Test: yes Date of Positive Test: 05/29/202001/2021 Description of their course of COVID-19 illness 1. Symptoms began on 05/2020 2. Hospitalization? No 3. Was the patient on oxygen? No 4. Was patient discharged on oxygen? No 5. Was there an ICU stay? No 6. Was the patient intubated? No 7. Were there any COVID-19 medications given? No 8. Were there significant complications from the patients COVID-19 Illness? No 9. Has the patient received the COVID Vaccine? NO COVID-19 Symptom Review Shortness of Breath or Dyspnea on Exertion not discussed Cough not discussed Chest discomfort/chest pain not discussed Palpitations not discussed Exertional intolerance Recurred persistent Fatigue Recurred persistent Dizziness not discussed Syncope or Near syncope not discussed Fever not discussed Joint pain/Body aches Recurred persistent Altered taste/smell not discussed Lack of concentration/brain fog Recurred persistent Memory deficits Recurred persistent Diarrhea or nausea not discussed Headaches not discussed Difficulty sleeping Recurred persistent HF Symptoms - Orthopnea/Edema not discussed Erectile Dysfunction N/A Changes in mood Present prior to COVID-19 infection and persistent Urinary Symptoms Never Most significant symptoms: Exertional intolerance Fatigue Sleep disturbances Bedtime around 8 PM Difficulty falling asleep: Yes, may take an hour mostly due to pain Difficulty staying asleep: Yes -- will wake up in middle of night (2-4AM) and take Vyvanse, fall back asleep, and then feel functional for 6 AM She feels the Vyvanse has significantly improved quality of life Wake up time: 6 AM Feels refreshed upon waking first thing in the morning: Yes The longest she has slept post-COVID infection was 26 hours (this occurred much later than 3 months post-acute infection) Naps during the day: On weekends, she will skip her Vyvanse and sleep as long as her body lets her (can be up to 14 hours) Previously existing chronic sleep conditions: No Previous diagnostics: sleep study done after COVID infection in 2020, but no sleep latency test Previous treatments: Wellbutrin (stopped by mental health provider in the past) Current treatments: Vyvanse, initiated by PCP within the past year Sleep specialist: none The harder they push themselves, the longer it takes to recover/rest: Yes Has psychiatrist she sees on a routine basis Myalgias/Arthralgias/Nerve pain Joint pain: Yes Joint swelling: No Muscle pain: Yes Location: arms, back, hips, legs; worse in arms and hips Characteristics: burning, heaviness, n/t, pinpricking Pain from lower left back radiates down into her left side, left thigh but does not pass the knee Duration: constant, varies in intensity 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) Alleviating factors: heat helps some Previous diagnostics: x-rays Brain MRI 2021 unremarkable Previous treatments: motrin without relief, gabapentin made me so dumb at work I couldn't function Previously sent to a [facility] by her PCP -- psoriatic arthritis ruled out with blood work and imaging Has not seen a neurologist, no EMGs Has had x-rays done in the past that have been unremarkable Cognitive changes Brain fog: Yes Short-term memory issues: Yes Decreased concentration: Yes Trouble multitasking: Yes Word finding difficulty: Yes Trouble maintain train of thought: Yes Trouble maintaining finances: No Gets lost in familiar places: No Misses doses of medication: No Previous neuropsychology assessment: No Difficult to perform tasks at 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 Negative for fever. Respiratory: Negative for cough, shortness of breath and wheezing. Cardiovascular: Negative for chest pain, palpitations and leg swelling. Gastrointestinal: Negative for diarrhea, nausea and vomiting. Musculoskeletal: Positive for arthralgias, back pain and myalgias. Skin: Negative for rash. Neurological: Positive for numbness. Negative for dizziness, syncope, weakness, light-headedness and headaches. Psychiatric/Behavioral: Positive for decreased concentration and sleep disturbance. Negative for confusion. PAST MEDICAL HISTORY Diagnosis Date Generalized anxiety disorder Hyperprolactinoma (HCC) Psoriasis Medication Review: Current Outpatient Medications Medication Sig lisdexamfetamine (VYVANSE) 40 mg capsule Take 40 mg by mouth every morning. clonazePAM (KLONOPIN) 0.5 mg tablet TAKE 1/2-1 TABLET ONCE DAILY NEEDED FOR ANXIETY Do not start before April 19, 2021. rizatriptan (MAXALT) 10 mg tablet Take 1 tablet by mouth as needed. AT ONSET OF HEADACHE. MAY REPEAT AFTER 2 HOURS. DO NOT EXCEED 30 MG PER DAY. No current facility-administered medications for this visit. Objective Findings: Vitals: BP 129/88 (BP Site: Left Arm, BP Position: Sitting, BP Cuff Size: Regular Adult) Pulse 100 LMP 01/04/2024 (Approximate) SpO2 98% Initial Screening Questionaires review: 01/24/2024 COVID Symptoms Onset: 05/29/2020 PROMIS/NeuroQoL Score Percentiles 01/24/2024 Physical Health Fatigue Percentile 0 Sleep Percentile 42 01/24/2024 Mental Health NeuroQol Cognitive Function Percentile 1 01/23/2024 09/20/2019 PROMIS Global Health Scale Physical Health Percentile 2 15 Mental Health Percentile 2 2 Percentiles provide an indication of how a patient s score ranks in relation to the [place] general population. > 31st percentile is within normal limits or better * < 31st percentile is at least SD worse than population, which may be clinically relevant < 16th percentile is at least 1 SD worse than population and warrants attention 01/24/2024 09/20/2019 PHQ-9 PHQ-2 Score 6 3 PHQ-9 Score 17 13 01/24/2024 09/20/2019 RENÉE - 2/7 SCORES RENÉE-2 Score 6 6 RENÉE-7 Score 15 18 Physical Examination: Physical Exam Vitals reviewed. Constitutional: General: She is not in acute distress. Appearance: Normal appearance. She is not ill-appearing, toxic-appearing or diaphoretic. HENT: Head: Normocephalic and atraumatic. Right Ear: External ear normal. Left Ear: External ear normal. Eyes: Conjunctiva/sclera: Conjunctivae normal. Pupils: Pupils are equal, round, and reactive to light. Cardiovascular: Rate and Rhythm: Normal rate and regular rhythm. Heart sounds: Normal heart sounds. Pulmonary: Effort: Pulmonary effort is normal. No respiratory distress. Breath sounds: Normal breath sounds. No stridor. No wheezing, rhonchi or rales. Chest: Chest wall: No tenderness. Musculoskeletal: Right shoulder: Tenderness present. Left shoulder: No tenderness. Right elbow: No tenderness. Left elbow: No tenderness. Right forearm: Tenderness present. Left forearm: No tenderness. Right wrist: No tenderness. Left wrist: No tenderness. Thoracic back: Tenderness (left) present. Lumbar back: Tenderness (left) present. Skin: Coloration: Skin is not jaundiced or pale. Findings: No bruising or rash. Neurological: Mental Status: She is alert and oriented to person, place, and time. Gait: Gait normal. Psychiatric: Mood and Affect: Mood normal. Behavior: Behavior normal. Assessment and Plan: 1. Diffuse pain - ICD9: 780.96, ICD10: R52 (primary diagnosis) 2. Nerve pain - ICD9: 729.2, ICD10: M79.2 3. Burning sensation - ICD9: 782.0, ICD10: R20.8 4. Pain in joint, multiple sites - ICD9: 719.49, ICD10: M25.50 5. Arm heaviness - ICD9: 729.89, ICD10: R29.898 6. Hip pain, unspecified laterality - ICD9: 719.45, ICD10: M25.559 7. Hypersomnia - ICD9: 780.54, ICD10: G47.10 8. Sleep disturbance - ICD9: 780.50, ICD10: G47.9 9. Activity intolerance - ICD9: 780.99, ICD10: R68.89 10. Chronic fatigue and malaise - ICD9: 780.71, ICD10: R53.82, R53.81 11. Anxiety and depression - ICD9: 300.00, 311, ICD10: F41.9, F32.A 12. Mood changes - ICD9: 296.90, ICD10: R45.86 13. Brain fog - ICD9: 799.59, ICD10: R41.89 14. Difficulty concentrating - ICD9: 799.51, ICD10: R41.840 15. Memory changes - ICD9: 780.93, ICD10: R41.3 16. Cognitive communication deficit - ICD9: 799.52, ICD10: R41.841 17. Post-acute sequelae of COVID-19 (PASC) - ICD9: 139.8, ICD10: U09.9 - Patient presents with long COVID syndrome due to symptoms starting within 3 months of acute COVID infection and persisting since that time; discussed current understanding of long COVID in medical community is limited and or goal is symptom management. This means there is no approved curative treatment for long COVID and instead we will focus on providing tools and resources aimed towards symptom mitigation. - The patient and I reviewed the below testing in detail. We discussed indications for testing and the benefits of results in directing the plan of care - Will await test results and discuss at our follow up visit - The patient will then follow up with consulted specialists and their PCP - Patient encouraged to continue following with established specialists - COMPLETE BLOOD COUNT AND DIFFERENTIAL - COMPREHENSIVE METABOLIC PANEL - THYROID STIMULATING HORMONE - VITAMIN B12 - FOLATE, SERUM - VITAMIN D 25 HYDROXY - TRACE ELEMENTS/TPN - C-REACTIVE PROTEIN - NT PRO BNP - D-DIMER - FERRITIN - OMEGACHECK - CONSULT TO RHEUM/IMMUN DISEASE - CONSULT TO WELLNESS PHYSICIAN - CONSULT TO NEUROLOGY - CONSULT TO SLEEP MEDICINE - ADULT - BACH SCREENING TEST - Discussed consults to Barney [facility] -- deferred at this time, will revisit at follow-up - Reviewed concern for chronic post-viral fatigue; reviewed pacing & energy conservation techniques The patient was informed of how [facility] functions. We are a referral service. As a referral service, we cannot determine work restrictions, complete FMLA/disability forms, or provide surgical clearance. The patient will have an initial visit as well as one follow up virtual visit in which all testing, imaging, and labs will be discussed. From there on it is expected that they continue to follow up with their PCP and the specialists established through this program. Patient will be sent questionnaires every 3 months for 1 year to monitor their progress. Once a questionnaire is completed, a member of our team may reach out to them to review. Consults initiated today: RHEUM/IMMUN DISEASE For PASC, diffuse pain, nerve pain, burning sensation, polyarthralgia, arm heaviness, hip pain, chronic fatigue and malaise -- appreciate rheum assistance screening for underlying autoimmune/inflammatory disorders, as well as fibromyalgia Scheduling # provided WELLNESS PHYSICIAN For PASC, diffuse pain, brain fog, chronic fatigue and malaise Scheduling # provided NEUROLOGY For PASC, diffuse pain, nerve pain, burning sensation Scheduling # provided SLEEP MEDICINE For PASC, hypersomnia, sleep disturbance, chronic fatigue and malaise Scheduling # provided Discussed consults to Ivan, Barney AMB[facility] -- deferred at this time, will revisit at follow-up. Return in about 6 weeks (around 03/07/2024) for virtual follow-up to review results once complete. Plan reviewed with patient, who verbalized understanding and is in agreement. I spent a total of 75 minutes on the date of the service which included preparing to see the patient, [id number] patient care, completing clinical documentation, obtaining and/or reviewing separately obtained history, performing a medically appropriate examination, counseling and educating the patient/family/caregiver, ordering medications, tests, or procedures, communicating with other HCPs (not separately reported), independently interpreting results (not separately reported), communicating results to the patient/family/caregiver, and care coordination (not separately reported). Sarah San APRN.CNP January 25, 2024 10:00 AM CC: Mindi Michelle MD (PCP) via [place] fax. SELF-REFERRED. documented in this encounter [facility] 01-25-2024 Note HNO ID: [id number] Author: RUI SAN APRN.CNP Service: ? Author Type: Nurse Practitioner Type: Progress Notes Filed: 01/25/2024 11:33 Note Text: COVID [facility] Initial Evaluation Lakeisha Ambrosio presents to [facility] at the request of Self for evaluation of prolonged, > 28 days, symptoms attributed to COVID-19 infection. They have requested this consultation via eConsult and will be communicated to via the EMR or [place] Post Office Correspondence. HPI: Lakeisha Ambrosio is a 43 year old female with primary symptoms as below Positive COVID-19 Test: yes Date of Positive Test: 05/29/202001/2021 Description of their course of COVID-19 illness 1. Symptoms began on 05/2020 2. Hospitalization? No 3. Was the patient on oxygen? No 4. Was patient discharged on oxygen? No 5. Was there an ICU stay? No 6. Was the patient intubated? No 7. Were there any COVID-19 medications given? No 8. Were there significant complications from the patients COVID-19 Illness? No 9. Has the patient received the COVID Vaccine? NO COVID-19 Symptom Review Shortness of Breath or Dyspnea on Exertion not discussed Cough not discussed Chest discomfort/chest pain not discussed Palpitations not discussed Exertional intolerance Recurred persistent Fatigue Recurred persistent Dizziness not discussed Syncope or Near syncope not discussed Fever not discussed Joint pain/Body aches Recurred persistent Altered taste/smell not discussed Lack of concentration/brain fog Recurred persistent Memory deficits Recurred persistent Diarrhea or nausea not discussed Headaches not discussed Difficulty sleeping Recurred persistent HF Symptoms - Orthopnea/Edema not discussed Erectile Dysfunction N/A Changes in mood Present prior to COVID-19 infection and persistent Urinary Symptoms Never Most significant symptoms: Exertional intolerance Fatigue Sleep disturbances Bedtime around 8 PM Difficulty falling asleep: Yes, may take an hour mostly due to pain Difficulty staying asleep: Yes -- will wake up in middle of night (2-4AM) and take Vyvanse, fall back asleep, and then feel functional for 6 AM She feels the Vyvanse has significantly improved quality of life Wake up time: 6 AM Feels refreshed upon waking first thing in the morning: Yes The longest she has slept post-COVID infection was 26 hours (this occurred much later than 3 months post-acute infection) Naps during the day: On weekends, she will skip her Vyvanse and sleep as long as her body lets her (can be up to 14 hours) Previously existing chronic sleep conditions: No Previous diagnostics: sleep study done after COVID infection in 2020, but no sleep latency test Previous treatments: Wellbutrin (stopped by mental health provider in the past) Current treatments: Vyvanse, initiated by PCP within the past year Sleep specialist: none The harder they push themselves, the longer it takes to recover/rest: Yes Has psychiatrist she sees on a routine basis Myalgias/Arthralgias/Nerve pain Joint pain: Yes Joint swelling: No Muscle pain: Yes Location: arms, back, hips, legs; worse in arms and hips Characteristics: burning, heaviness, n/t, pinpricking Pain from lower left back radiates down into her left side, left thigh but does not pass the knee Duration: constant, varies in intensity 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) Alleviating factors: heat helps some Previous diagnostics: x-rays Brain MRI 2021 unremarkable Previous treatments: motrin without relief, gabapentin made me so dumb at work I couldn't function Previously sent to a [facility] by her PCP -- psoriatic arthritis ruled out with blood work and imaging Has not seen a neurologist, no EMGs Has had x-rays done in the past that have been unremarkable Cognitive changes Brain fog: Yes Short-term memory issues: Yes Decreased concentration: Yes Trouble multitasking: Yes Word finding difficulty: Yes Trouble maintain train of thought: Yes Trouble maintaining finances: No Gets lost in familiar places: No Misses doses of medication: No Previous neuropsychology assessment: No Difficult to perform tasks at 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 Negative for fever. Respiratory: Negative for cough, shortness of breath and wheezing. Cardiovascular: Negative for chest pain, palpitations and leg swelling. Gastrointestinal: Negative for diarrhea, nausea and vomiting. Musculoskeletal: Positive for arthralgias, back pain and myalgias. Skin: Negative for rash. Neurological: Positive for n (more content not included)... [facility] 01-25-2024 Instructions Rui San APRN.[facility] - 01/25/2024 9:56 AM EST Welcome to [facility]! The 'COV' represents SARS-CoV-2, also known as COVID-19. Our clinic's mission is to assess and guide individuals who are experiencing long-term effects of COVID-19 to care paths tailored to fit each person. We are a referral service. As a referral center for post-COVID related conditions, we cannot provide work, FMLA, disability or other forms, or surgical clearance. You will have an initial visit as well as one follow-up virtual visit in which all [facility] testing, imaging, and labs will be discussed. From there on it is expected that you continue to follow up with your PCP and the specialists established through this program. You will be sent questionnaires every 3 months for 1 year to monitor your progress. Once a questionnaire is completed, a member of our team may reach out to you to review. You just had your initial visit with the reCOVer clinic! Next, you will be undergoing additional tests to further assess your current symptoms. Once you have these tests completed, you will have another visit to review these results. We will then direct you down the appropriate care path with a specialist for further treatment based on those results and your current symptoms. You may have your labs here today, or at any [facility], as a walk-in appointment. You do not need to fast for these labs. Labs should be completed no later than 10 days prior to our follow-up appointment. Failure to complete within that time frame may result in your follow-up visit being rescheduled. We will schedule you for our follow-up and help schedule consults as we are able today before you leave. We will help schedule the following, but here are the numbers should you need them: - You may call [phone] to reach Rheumatology. - You may call [phone] to reach Wellness (Integrative medicine). - You may call [phone] to reach Neurology, as well as the [facility]. Please refer to the separate [facility]elle message for the link and instructions for the cognitive exam. Fatigue resources: [email or web address]/ health/diseases/[email or web address]-midzlwv-r xlvnwiiipqphywlk-uxagebp-auyejb l-najycftp-or-cfs http://www.[facility].ca/health-info- site/Documents/post_covid-19_fa tigue.pdf https://www.[facility].nhs.uk /wp-content/uploads//OH- 090.66-Llbw-FINNM-[place]af[place].pdf https://[employer])/wp-co ntent/uploads//Using-spo ke-dktdyk-yfm-fatigue.pdf I will see you in roughly 6-8 weeks for follow-up. - The [facility] Team documented in this encounter [facility] 12-14-2023 Telephone encounter Note Called patient to update registration and insurance, and to schedule with [facility], 3rd attempt, left VM. Closing encounter. [facility] 12-14-2023 Miscellaneous Notes Called patient to update registration and insurance, and to schedule with [facility], 3rd attempt, left VM. Closing encounter. Called patient to update registration and insurance, and to schedule with [facility], 2nd attempt, left VM. Received email appointment request for patient to be seen in the [facility]. Called patient to update insurance information and to schedule appointment, 1st attempt, left VM. documented in this encounter [facility] 12-08-2023 Telephone encounter Note Called patient to update registration and insurance, and to schedule with [facility], 2nd attempt, left VM. [facility] 12-01-2023 Telephone encounter Note Received email appointment request for patient to be seen in the [facility]. Called patient to update insurance information and to schedule appointment, 1st attempt, left VM. 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) 10 Dec, 2022 Chronic migraine w/o aura, not intractable, w/o stat migr (ICD-10 - G43.709) [facility] Other 10-12-2023 Evaluation note* Encounter Date Diagnosis Assessment Notes Treatment Notes Treatment Clinical Notes Nov, Brain fog (ICD-10 - R41.89) Nov, 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) [facility] Other 09-11-2023 Evaluation note* Encounter Date Diagnosis Assessment Notes Treatment Notes Treatment Clinical Notes Oct, Brain fog (ICD-10 - R41.89) 11 Oct, 2022 Chronic migraine w/o aura, not intractable, w/o stat migr (ICD-10 - G43.709) [facility] Other 08-14-2023 Evaluation note* Encounter Date Diagnosis Assessment Notes Treatment Notes Treatment Clinical Notes 14 Sep, 2022 Brain fog (ICD-10 - R41.89) 14 Sep, 2022 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 Was last seen on 09-03-21 Patient called back and stated she will not reschedule due to she does not need the medication anymore. Lakeisha is using Aramis and/or Hebert for last name. 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 Does ok on Maxalt, but sometimes run out with only 6 tabs/month June, Brain fog (ICD-10 - R41.89) Notes from 2021 scanned into chart. June, Cosw-OIIHV-76 condition (ICD-10 - U09.9) Refilled wellbutren. takes gabapentin prn. Reviewed all notes from Dr. Gillespie. Previously linked her symptoms to COVID. 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 Consider imaging, but would defer to neurology's expertise. 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 Take the amoxicillin as prescribed until gone for your ear infection. Use the eyedrops as prescribed for your eye infection. Take the Tessalon Perles as prescribed for your cough. Take Tylenol or Motrin as needed for aches pains or fevers. Follow-up with your family physician if no improvement in 2 to 3 days. Apr, Acute cough (ICD-10 - R05.1) Apr, Conjunctivitis of both eyes, unspecified conjunctivitis type (ICD-10 - H10.9) Conjunctivitis home care material was printed [facility] Other 01-09-2023 Miscellaneous Notes* Telephone Encounter - Jenni Ovalle - 02/22/2022 10:48 AM EST The following medication(s) is being requested: By the pharmacy LAST APPT - 09/03/21 NEXT APPT - 03/01/22 Requested Prescriptions Pending Prescriptions Disp Refills FLUoxetine (PROZAC) 40 mg capsule [Pharmacy Med Name: FLUOXETINE HCL 40 MG CAPSULE] 90 capsule 1 Sig: TAKE 1 CAPSULE BY MOUTH ONCE DAILY Please process accordingly Jenni Ovalle [facility]* Encounter Date Diagnosis Assessment Notes Treatment Notes Treatment Clinical Notes Nov, Right hand pain (ICD-10 - M79.641) Nov, Overuse syndrome of right hand, initial encounter (ICD-10 - S66.911A) This appears to be a strain/overuse of the index finger. Discussed her x-rays did not show any abnormality. Discussed maybe trying ergonomic changes at the workspace such as a different type of mouse and using the middle finger instead of the index finger while controlling the mouse. Also discussed using a topical anti inflammatory medication to help decrease the inflammation and pain. May also try hand therapy with modalities. Discussed oral medrol dosepak and cortisone injection if pain persists. Discussed there is not a surgical option at this time that would help decrease her pain. [facility] Other 07-21-2022 NoteHNO ID: [id number] Author: Aysha Son APRN.SIGNALMAN Service: ? Author Type: Nurse Practitioner Type: Progress Notes Filed: 09/03/2021 10:07 AM Note Text: PSYC FOLLOW UP - PSYCHIATRIC PROGRESS NOTE CC: Follow up for medication management for anxiety With the patient consent, visit was performed virtually. HPI: She is good . She feels things have been the same . She has been busy with work and keeping up with her daughters' volleyball schedule. Her older daughter recently got her restaurant delivery driver's license which is a real game changer as this opens up some each time for her. She is continuing to experience fatigue and tremors from having covid last year. She has been working with her PCP to manage these symptoms and her PCP has taken over prescribing of klonopin due to regular use to manage tremors. She feels that her biggest concern is the fatigue that she continues to experience as it makes it challenging for her to do things some days. She has been enjoying working on her house and is taking my time and doing one room at a time so it is exactly how I want it . She finds her house to be her relaxing place and enjoys spending her time there. She feels that her current medications are working well and has no complaints. Risks and benefits of the medication, including any black box warnings, were discussed with the patient. Interval Progress: Same PATIENT DATA: Generalized Anxiety Disorder Scale (RENÉE-7) RENÉE - 7 SCORES 09/20/2019 RENÉE-7 Score 18 (0-4) minimal anxiety, (5-9) mild anxiety, (10-14) moderate anxiety, (15-21) severe anxiety Patient Health Questionnaire (PHQ-9) PHQ-9 09/20/2019 Score 13 (0-4) minimal depression, (5-9) mild depression, (10-14) moderate depression, (15-19) moderately severe depression, (20-27) severe depression PROMIS Global Health PROMIS Global Health - (T-Scores - the mean of general population = 50. Five points is a clinically meaningful difference.) 09/20/2019 Physical T-Score 39.8 Mental T-Score 28.4 PAST MEDICAL HISTORY Diagnosis Date - Generalized anxiety disorder - Hyperprolactinoma (HCC) - Psoriasis PAST SURGICAL HISTORY Procedure Laterality Date - hem 2006 Current Outpatient Medications Medication Sig Dispense Refill - FLUoxetine (PROZAC) 40 mg capsule TAKE 1 CAPSULE BY MOUTH ONCE DAILY 90 capsule 0 - topiramate (TOPAMAX) 50 mg tablet TAKE 1 TABLET BY MOUTH EVERY DAY 90 tablet 0 - clonazePAM (KLONOPIN) 0.5 mg tablet TAKE 1/2-1 TABLET ONCE DAILY NEEDED FOR ANXIETY Do not start before April 19, 2021. 20 tablet 0 - buPROPion XL (WELLBUTRIN XL) 150 mg 24 hr tablet - propranolol (INDERAL) 20 mg tablet Take 1 tablet by mouth twice daily. 60 tablet 1 - rizatriptan (MAXALT) 10 mg tablet Take 1 tablet by mouth as needed. AT ONSET OF HEADACHE. MAY REPEAT AFTER 2 HOURS. DO NOT EXCEED 30 MG PER DAY. 9 tablet 1 No current facility-administered medications for this visit. ROS: GENERAL: SEE HPI PSYCH: See HPI All other systems negative. PFSH: See HPI VITAL SIGNS: There were no vitals filed for this visit. MENTAL STATUS EXAM: CONSTITUTIONAL: Well groomed, Appropriately dressed, Casually dressed, Well developed, Well nourished ORIENTATION: Person, Place, Time and Situation MEMORY: No deficiencies noted CONCENTRATION: Normal MOOD: euthymic AFFECT: Full and appropriate to topic SPEECH : Clear AND distinct LANGUAGE : Normal ASSOCIATIONS: Intact THOUGHT PROCESS : Logical, Coherent and Rational PROGRESSION : There was no evidence of disturbance in thought perception or progression. FUND OF KNOWLEDGE : Appropriate and Adequate SUICIDE: Denies suicidal thoughts, plan, or intent. HOMICIDE: Denies homicidal thoughts, plan, or intent. DATA REVIEWED: Electronic medical record and PDMP website checked and validated. All prescriptions have been APPROPRIATELY filled. No suspicious activity was identified. 09/03/2021 by Aysha Son APRN.SIGNALMAN DIAGNOSIS: PRIMARY:?Anxiety Disorder?Generalized Anxiety Disorder? SECONDARY:?Mood Disorder?Major Depressive Disorder, Single Episode,??Moderate? GAF: -80-71 If symptoms are present, they are transient and expectable reactions to psychosocial stressors TREATMENT PLAN: Reviewed symptoms, medications and their side effects, labs, and progress being made. Discussed life situations and?coping skills Support and encouragement provided? ? PLAN AND FOLLOW UP: ? If any acute concerns arise please call 911 or go to the nearest Emergency Department. ? Medications: ? Continue:? --Prozac (fluoxetine) 40 mg?once daily --Topamax?(topiramate) 50 mg once daily --hydroxyzine 50 mg?three times daily as needed - rarely uses --Clonazepam (klonopin) 0.5 mg once daily as needed - now managed by PCP for tremors ? Lab work: --last done?06/03/20, will reorder as needed ? Other: --referred her back to PCP about extension of leave paperwork --discussed tr (more content not included)...[facility]07-21-2022 History of Present illness Narrative* Aysha GarciaLEVI menchaca.SIGNALMAN - 09/03/2021 8:31 AM EDT Images from the original note were not included. PSYC FOLLOW UP - PSYCHIATRIC PROGRESS NOTE CC: Follow up for medication management for anxiety With the patient consent, visit was performed virtually. HPI: She is good . She feels things have been the same . She has been busy with work and keeping up with her daughters' volleyball schedule. Her older daughter recently got her restaurant delivery driver's license which is a real game changer as this opens up some each time for her. She is continuing to experience fatigue and tremors from having covid last year. She has been working with her PCP to manage these sympto ms and her PCP has taken over prescribing of klonopin due to regular use to manage tremors. She feels that her biggest concern is the fatigue that she continues to experience as it makes it challenging for her to do things some days. She has been enjoying working on her house and is taking my timeand doing one room at a time so it is exactly how I want it . She finds her house to be her relaxing place and enjoys spending her time there. She feels that her current medications are working well and has no complaints. Risks and benefits of the medication, including any black box warnings, were discussed with the patient. Interval Progress: Same PATIENT DATA: Generalized Anxiety Disorder Scale (RENÉE-7) RENÉE - 7 SCORES 09/20/2019 RENÉE-7 Score 18 (0-4) minimal anxiety, (5-9) mild anxiety, (10-14) moderate anxiety, (15-21) severe anxiety Patient Health Questionnaire (PHQ-9) PHQ-9 09/20/2019 Score 13 (0-4) minimal depression, (5-9) mild depression, (10-14) moderate depression, (15-19) moderately severe depression, (20-27) severe depression PROMIS Global Health PROMIS Global Health - (T-Scores - the mean of general population = 50. Five points is a clinicallymeaningful difference.) 09/20/2019 Physical T-Score 39.8 Mental T-Score 28.4 PAST MEDICAL HISTORY Diagnosis Date Generalized anxiety disorder Hyperprolactinoma (HCC) Psoriasis PAST SURGICAL HISTORY Procedure Laterality Date hem 2006 Current Outpatient Medications Medication Sig Dispense Refill FLUoxetine (PROZAC) 40 mg capsule TAKE 1 CAPSULE BY MOUTH ONCE DAILY 90 capsule 0 topiramate (TOPAMAX) 50 mg tablet TAKE 1 TABLET BY MOUTH EVERY DAY 90 tablet 0 clonazePAM (KLONOPIN) 0.5 mg tablet TAKE 1/2-1 TABLET ONCE DAILY NEEDED FOR ANXIETY Do not startbefore April 19, 2021. 20 tablet 0 buPROPion XL (WELLBUTRIN XL) 150 mg 24 hr tablet propranolol (INDERAL) 20 mg tablet Take 1 tablet by mouth twice daily. 60 tablet 1 rizatriptan (MAXALT) 10 mg tablet Take 1 tablet by mouth as needed. AT ONSET OF HEADACHE. MAY REPEAT AFTER 2 HOURS. DO NOT EXCEED 30 MG PER DAY. 9 tablet 1 No current facility-administered medications for this visit. ROS: GENERAL: SEE HPI PSYCH: See HPI All other systems negative. PFSH: See HPI VITAL SIGNS: There were no vitals filed for this visit. MENTAL STATUS EXAM: CONSTITUTIONAL: Well groomed, Appropriately dressed, Casually dressed, Well developed, Well nourished ORIENTATION: Person, Place, Time and Situation MEMORY: No deficiencies noted CONCENTRATION: Normal MOOD: euthymic AFFECT: Full and appropriate to topic SPEECH : Clear & distinct LANGUAGE : Normal ASSOCIATIONS: Intact THOUGHT PROCESS : Logical, Coherent and Rational PROGRESSION : There was no evidence of disturbance in thought perception or progression. FUND OF KNOWLEDGE : Appropriate and Adequate SUICIDE: Denies suicidal thoughts, plan, or intent. HOMICIDE: Denies homicidal thoughts, plan, or intent. DATA REVIEWED: Electronic medical record and PDMP website checked and validated. All prescriptions have been APPROPRIATELY filled. No suspiciousactivity was identified. 09/03/2021 by Aysha Son APRN.SIGNALMAN DIAGNOSIS: PRIMARY: Anxiety Disorder Generalized Anxiety Disorder SECONDARY: Mood Disorder Major Depressive Disorder, Single Episode, Moderate GAF: -80-71 If symptoms are present, they are transient and expectable reactions to psychosocial stressors TREATMENT PLAN: Reviewed symptoms, medications and their side effects, labs, and progress being made. Discussed life situations and coping skills Support and encouragement provided PLAN AND FOLLOW UP: If any acute concerns arise please call 911 or go to the nearest Emergency Department. Medications: Continue: --Prozac (fluoxetine) 40 mg once daily --Topamax (topiramate) 50 mg once daily --hydroxyzine 50 mg three times daily as needed - rarely uses --Clonazepam (klonopin) 0.5 mg once daily as needed - now managed by PCP for tremors Lab work: --last done 06/03/20, will reorder as needed Other: --referred her back to PCP about extension of leave paperwork --discussed transferring klonopin prescription to PCP if continuing to use regularly for tremors Next appointment: --Schedule in 6 months or sooner if needed --Call [phone] to schedule next appointment or for questions call [phone] option 3 as needed; call sooner as needed. --Message in Gazelle any questions or concerns. MEDICATION CHANGES: Current medication regimen unchanged. Prescriptions given Follow Up: 6 months I spent a total of 20 minutes on the date of the service which included preparing to see the patient, [id number] patient care, completing clinical documentation, performing a medically appropriate examination, counseling and educating the patient/family/caregiver and ordering medications, tests, or procedures. ADD ON PSYCHOTHERAPY CODE : No SIGNATURE: Aysha Son APRN.CNP PATIENT NAME: Lakeisha Ambrosio DATE: September 03, 2021 TIME: 8:31 AM PAGER: [facility] Miscellaneous Notes* Telephone Encounter - Aysha Son APRN.CNP - 07/27/2021 8:46 AM EDT Patient needs appointment as there is currently no scheduled upcoming appointment * Telephone Encounter - Daysi Scott - 07/27/2021 8:32 AM EDT The following medication(s) is being requested: LAST APPT - 04.10.21 NEXT APPT - None scheduled Pending Prescriptions Disp Refills TOPIRAMATE 50 MG TABLET 90 tablet 0 Sig: TAKE 1 TABLET BY MOUTH EVERY DAY JUDY: Yes Please process accordingly Daysi Yoanna Scott [facility] NotePROCEDURE: XR HAND RT MIN 3V HISTORY: Pain in right hand ; small lump on back of hand COMPARISON: None. FINDINGS: BONES:No fracture, acute abnormality, or significant arthropathy. SOFT TISSUES:Skin surface marker localizing the palpable lump posterior to the head of the third metacarpal. No appreciable soft tissue abnormality. EFFUSION:None visible. OTHER: Negative. IMPRESSION: 1. No radiopaque foreign body or appreciable soft tissue abnormality. 2. No bone involvement. Electronically authenticated by: INÉS CUNNINGHAM Date: 2021-06-16 17:37[facility]02-25[facility]2022 NoteHNO ID: [id number] Author: Aysha Son APRN.SIGNALMAN Service: ? Author Type: Nurse Practitioner Type: Progress Notes Filed: 04/10/2021 9:49 AM Note Text: PSYC FOLLOW UP - PSYCHIATRIC PROGRESS NOTE CC: Follow up for medication management for anxiety With the patient consent, visit was performed virtually. HPI: She is doing pretty good with the medicine and everything . She feels that her medication can probably stay the same . She had covid for the second time and had pneumonia for a second time as well. She has been off work for about a week but feels like she needs a little more time off because of how she's been feeling physically. She had gotten another refill of the klonopin through the provider who is treating her for covid as she has been taking it daily to manage the tremors that she has had since having covid the first time. The tremors do seem to be worse since her second time of having covid. She ended up continuing to stay with her previous employer as they counter offered when she was looking at the other position. However, she was given a raise and some additional job responsibilities. She also has a new boss who doesn't seem to get that I'm sick and this has been a little stressful for her. Risks and benefits of the medication, including any black box warnings, were discussed with the patient. Interval Progress: Same PATIENT DATA: Generalized Anxiety Disorder Scale (RENÉE-7) RENÉE - 7 SCORES 09/20/2019 RENÉE-7 Score 18 (0-4) minimal anxiety, (5-9) mild anxiety, (10-14) moderate anxiety, (15-21) severe anxiety Patient Health Questionnaire (PHQ-9) PHQ-9 09/20/2019 Score 13 (0-4) minimal depression, (5-9) mild depression, (10-14) moderate depression, (15-19) moderately severe depression, (20-27) severe depression PROMIS Global Health PROMIS Global Health - (T-Scores - the mean of general population = 50. Five points is a clinically meaningful difference.) 09/20/2019 Physical T-Score 39.8 Mental T-Score 28.4 PAST MEDICAL HISTORY Diagnosis Date - Generalized anxiety disorder - Hyperprolactinoma (HCC) - Psoriasis PAST SURGICAL HISTORY Procedure Laterality Date - hem 2006 Current Outpatient Medications Medication Sig Dispense Refill - clonazePAM (KLONOPIN) 0.5 mg tablet TAKE 1/2-1 TABLET ONCE DAILY NEEDED FOR ANXIETY 20 tablet 0 - FLUoxetine HCl (PROZAC) 40 mg capsule Take 1 capsule by mouth once daily. 90 capsule 0 - topiramate (TOPAMAX) 50 mg tablet Take 1 tablet by mouth once daily. 90 tablet 0 - buPROPion XL (WELLBUTRIN XL) 150 mg 24 hr tablet - propranolol (INDERAL) 20 mg tablet Take 1 tablet by mouth twice daily. 60 tablet 1 - rizatriptan (MAXALT) 10 mg tablet Take 1 tablet by mouth as needed. AT ONSET OF HEADACHE. MAY REPEAT AFTER 2 HOURS. DO NOT EXCEED 30 MG PER DAY. 9 tablet 1 No current facility-administered medications for this visit. ROS: GENERAL: SEE HPI RESPIRATORY: SEE HPI SKIN: See HPI All other systems negative. PFSH: See HPI VITAL SIGNS: There were no vitals filed for this visit. MENTAL STATUS EXAM: CONSTITUTIONAL: Well groomed, Appropriately dressed, Casually dressed, Well developed, Well nourished ORIENTATION: Person, Place, Time and Situation MEMORY: No deficiencies noted CONCENTRATION: Normal MOOD: euthymic AFFECT: Full and appropriate to topic SPEECH : Clear AND distinct LANGUAGE : Normal ASSOCIATIONS: Intact THOUGHT PROCESS : Logical, Coherent and Rational PROGRESSION : There was no evidence of disturbance in thought perception or progression. FUND OF KNOWLEDGE : Appropriate and Adequate SUICIDE: Denies suicidal thoughts, plan, or intent. HOMICIDE: Denies homicidal thoughts, plan, or intent. DATA REVIEWED: Electronic medical record and PDMP website checked and validated. All prescriptions have been APPROPRIATELY filled. No suspicious activity was identified. 04/10/2021 by Aysah Son APRN.SIGNALMAN DIAGNOSIS: PRIMARY:?Anxiety Disorder?Generalized Anxiety Disorder? SECONDARY:?Mood Disorder?Major Depressive Disorder, Single Episode,??Moderate? ? GAF:?70?-70-61 Some mild symptoms or some difficulty in social, occupational, or school functioning, but generally functioning pretty well. ? ? TREATMENT PLAN: ? Reviewed symptoms, medications and their side effects, labs, and progress being made. Discussed life situations and?coping skills Support and encouragement provided? ? PLAN AND FOLLOW UP: ? If any acute concerns arise please call 911 or go to the nearest Emergency Department. ? Medications: ? Continue:?Prozac (fluoxetine) 40 mg?once daily, Topamax (topiramate) 50 mg once daily, hydroxyzine 50 mg?three times daily as needed, and?Clonazepam (klonopin) 0.5 mg once daily as needed ? Lab work: --last done?06/03/20, will reorder as needed ? Other: --referred her back to PCP about extension of leave paperwork --discussed transferring klono (more content not included)...[facility] 01-12-2021 NoteHNO ID: [id number] Author: Aysha Son APRN.ANTONIETA Service: ? Author Type: Nurse Practitioner Type: Progress Notes Filed: 01/12/2021 8:34 AM Note Text: PSYC FOLLOW UP - PSYCHIATRIC PROGRESS NOTE CC: Follow up for medication management for anxiety With the patient consent, visit was performed virtually. HPI: She says I think I'm doing really well. She did see a doctor for her long covid as fatigue has still been a problem and that doctor suggested that she add Wellbutrin to help with the fatigue. She hasn't started it yet as she wanted to check if it would be okay to take with the Prozac. She has been sleeping well without the trazodone with her anxiety less as well as because of the fatigue from having covid. She spent Thanksgiving with her sister and daughters. 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 She feels that her anxiety is really doing well and rarely uses her klonopin. She feels the increase in Topamax was helpful and has lost about 10 lbs over the last few months. Risks and benefits of the medication, including any black box warnings, were discussed with the patient. Interval Progress: Same PATIENT DATA: Generalized Anxiety Disorder Scale (RENÉE-7) RENÉE - 7 SCORES 09/20/2019 RENÉE-7 Score 18 (0-4) minimal anxiety, (5-9) mild anxiety, (10-14) moderate anxiety, (15-21) severe anxiety Patient Health Questionnaire (PHQ-9) PHQ-9 09/20/2019 Score 13 (0-4) minimal depression, (5-9) mild depression, (10-14) moderate depression, (15-19) moderately severe depression, (20-27) severe depression PROMIS Global Health PROMIS Global Health - (T-Scores - the mean of general population = 50. Five points is a clinically meaningful difference.) 09/20/2019 Physical T-Score 39.8 Mental T-Score 28.4 PAST MEDICAL HISTORY Diagnosis Date - Generalized anxiety disorder - Hyperprolactinoma (HCC) - Psoriasis PAST SURGICAL HISTORY Procedure Laterality Date - hem 2006 Current Outpatient Medications Medication Sig Dispense Refill - clonazePAM (KLONOPIN) 0.5 mg tablet Take 1/2-1 tablet once daily as needed for anxiety 20 tablet 0 - FLUoxetine HCl (PROZAC) 40 mg capsule Take 1 capsule by mouth once daily. 90 capsule 0 - topiramate (TOPAMAX) 50 mg tablet Take 1 tablet by mouth once daily. 90 tablet 0 - propranolol (INDERAL) 20 mg tablet Take 1 tablet by mouth twice daily. 60 tablet 1 - rizatriptan (MAXALT) 10 mg tablet Take 1 tablet by mouth as needed. AT ONSET OF HEADACHE. MAY REPEAT AFTER 2 HOURS. DO NOT EXCEED 30 MG PER DAY. 9 tablet 1 No current facility-administered medications for this visit. ROS: GENERAL: SEE HPI PSYCH: See HPI All other systems negative. PFSH: See HPI VITAL SIGNS: There were no vitals filed for this visit. MENTAL STATUS EXAM: CONSTITUTIONAL: Well groomed, Appropriately dressed, Casually dressed, Well developed, Well nourished ORIENTATION: Person, Place, Time and Situation MEMORY: No deficiencies noted CONCENTRATION: Normal MOOD: euthymic AFFECT: Full and appropriate to topic SPEECH : Clear AND distinct LANGUAGE : Normal ASSOCIATIONS: Intact THOUGHT PROCESS : Logical, Coherent and Rational PROGRESSION : There was no evidence of disturbance in thought perception or progression. FUND OF KNOWLEDGE : Appropriate and Adequate SUICIDE: Denies suicidal thoughts, plan, or intent. HOMICIDE: Denies homicidal thoughts, plan, or intent. DATA REVIEWED: Electronic medical record and PDMP website checked and validated. All prescriptions have been APPROPRIATELY filled. No suspicious activity was identified. 01/12/2021 by Aysha Son APRN.SIGNALMAN DIAGNOSIS: PRIMARY:?Anxiety Disorder?Generalized Anxiety Disorder? SECONDARY:?Mood Disorder?Major Depressive Disorder, Single Episode,??Moderate? ? GAF:?70?-70-61 Some mild symptoms or some difficulty in social, occupational, or school functioning, but generally functioning pretty well. ? ? TREATMENT PLAN: ? Reviewed symptoms, medications and their side effects, labs, and progress being made. Discussed life situations and?coping skills Support and encouragement provided? ? PLAN AND FOLLOW UP: ? If any acute concerns arise please call 911 or go to the nearest Emergency Department. ? Medications: ? Continue:?Prozac (fluoxetine) 40 mg?once daily, Topamax (topiramate) 50 mg once daily, hydroxyzine 50 mg?three times daily as needed, and?Clonazepam (klonopin) 0.5 mg once daily as needed ? Lab work: --last done 06/03/20, will reorder as needed ? Next appointment: --Schedule in?3 months?or sooner if needed --Call [phone] to schedule next appointment or for questions call [phone] option 3 as needed; call sooner as needed.? --Message in Gazelle any questions or concerns.?? MEDICATION CHANGES: Current medication regimen unchanged. Prescriptions given (more content not included)...[facility] NoteHNO ID: [id number] Author: Aysha Son APRN.SIGNALMAN Service: ? Author Type: Nurse Practitioner Type: Progress Notes Filed: 10/13/2020 8:55 AM Note Text: PSYC FOLLOW UP - PSYCHIATRIC PROGRESS NOTE CC: Follow up for medication management for anxiety With the patient consent, visit was performed virtually. HPI: She bought a house a few weeks ago. She tried to move over the weekend. Her commute is much shorter both to work and to take her daughters to school. She still really enjoys her new job as it is still so much less stress . She is still having trouble with the long COVID-19. She has noticed that her hair is falling out and I have like half what I used to as well as the tiredness and fatigue are still an issue . She also has some shakiness from the COVID-19 which the klonopin helps but I still use it way less than I used to . She feels that her anxiety is so much better then it used to be but can tell that I need the antidepressant as she forgot it for a couple days when she moved and I could tell . She has seen improvements with her weight since starting the Topamax as she was able to cut out pop from her diet which she was addicted to prior to this. She is now drinking mostly unsweetened tea and water. She however feels that there is some additional improvements that she could make. She has been helping out with her daughter's volleyball games since the returned to school. She also switched her migraine medication due to insurance changes and has been trying to get scheduled for a follow up with neurology but has had trouble getting through to make an appointment. Risks and benefits of the medication, including any black box warnings, were discussed with the patient. Interval Progress: Improved PATIENT DATA: Generalized Anxiety Disorder Scale (RENÉE-7) RENÉE - 7 SCORES 09/20/2019 RENÉE-7 Score 18 (0-4) minimal anxiety, (5-9) mild anxiety, (10-14) moderate anxiety, (15-21) severe anxiety Patient Health Questionnaire (PHQ-9) PHQ-9 09/20/2019 Score 13 (0-4) minimal depression, (5-9) mild depression, (10-14) moderate depression, (15-19) moderately severe depression, (20-27) severe depression PROMIS Global Health PROMIS Global Health - (T-Scores - the mean of general population = 50. Five points is a clinically meaningful difference.) 09/20/2019 Physical T-Score 39.8 Mental T-Score 28.4 PAST MEDICAL HISTORY Diagnosis Date - Generalized anxiety disorder - Hyperprolactinoma (HCC) - Psoriasis PAST SURGICAL HISTORY Procedure Laterality Date - hem 2006 Current Outpatient Medications Medication Sig Dispense Refill - topiramate (TOPAMAX) 25 mg tablet TAKE 1 TABLET BY MOUTH EVERYDAY AT BEDTIME 30 tablet 0 - rizatriptan (MAXALT) 10 mg tablet Take 1 tablet by mouth as needed. AT ONSET OF HEADACHE. MAY REPEAT AFTER 2 HOURS. DO NOT EXCEED 30 MG PER DAY. 9 tablet 3 - FLUoxetine HCl (PROZAC) 40 mg capsule Take 1 capsule by mouth once daily. 90 capsule 0 - clonazePAM (KLONOPIN) 0.5 mg tablet Take 1/2-1 tablet once daily as needed for anxiety 20 tablet 2 - propranolol (INDERAL) 20 mg tablet Take 1 tablet by mouth twice daily. 60 tablet 4 No current facility-administered medications for this visit. ROS: GENERAL: Negative for malaise, significant weight loss and fever. HEENT: No changes in hearing or vision, no nose bleeds or other nasal problems. RESPIRATORY: Negative for cough, wheezing and shortness of breath. CARDIOVASCULAR: Negative for chest pain, leg swelling and palpitations. GI: Negative for abdominal discomfort, blood in stools or black stools. : Negative for dysuria, frequency and incontinence. MUSCULOSKELETAL: Negative for joint pain or swelling, back pain, and muscle pain. SKIN: Negative for lesions, rash, and itching. HEMATOLOGY/LYMPHOLOGY Negative for prolonged bleeding, bruising easily, and swollen nodes. ENDOCRINE: Negative for cold or heat intolerance, polyuria, polydipsia and goiter. NEURO: Negative for headaches, syncope, seizures and paralysis. PFSH: See HPI VITAL SIGNS: There were no vitals filed for this visit. MENTAL STATUS EXAM: CONSTITUTIONAL: Well groomed, Appropriately dressed, Casually dressed, Well developed, Well nourished ORIENTATION: Person, Place, Time and Situation MEMORY: No deficiencies noted CONCENTRATION: Normal MOOD: euthymic AFFECT: Full and appropriate to topic SPEECH : Clear AND distinct LANGUAGE : Normal ASSOCIATIONS: Intact THOUGHT PROCESS : Logical, Coherent and Rational PROGRESSION : There was no evidence of disturbance in thought perception or progression. FUND OF KNOWLEDGE : Appropriate and Adequate SUICIDE: Denies suicidal thoughts, plan, or intent. HOMICIDE: Denies homicidal thoughts, plan, or intent. DATA REVIEWED: Electronic medical record and PDMP website checked and validated. All prescriptions have been APPROPRIATELY filled. No suspicious activity was (more content not included)...[facility]04-20-[facility] Hospital Discharge instructions* Instructions* Lisa Gaona PA-C - 06/03/2020 You have COVID-19. You need to be in quarantine. You had a lung nodule on your chest x-ray. This needs to be followed up with primary care. Call today to arrange follow-up because you potentially need further imaging. If you go home develop worsening symptoms develop shortness of breath do not hesitate to return to the ER for recheck. * Attachments The following attachments cannot be sent through Care Everywhere. * Coronavirus Disease (COVID-19): General Info (Comoran) [facility]: evalgaghak note* Diagnosis COVID-19- Primary Lung nodule Solitary pulmonary nodule documented in this encounter [employer] Phone: evaluation note* Diagnosis Generalized anxiety disorder [facility] Diagnosis Generalized anxiety disorder [facility]* Diagnosis Generalized anxiety disorder [facility] [employer] Other Evaluation note* Diagnosis Generalized anxiety disorder [facility]* Diagnosis Onset Date Resolution Status Adult ADHD [facility] Work Phone: Evaluation note* Diagnosis Onset Date Resolution Status Adult ADHD acute Adult ADHD [facility] Work Phone: Evaluation note* Diagnosis Diffuse pain- Primary Generalized pain Nerve pain Neuralgia, neuritis, and radiculitis, unspecified Burning sensation Disturbance of skin sensation Pain in joint, multiple sites Arm heaviness Other musculoskeletal symptoms referable to limbs Hip pain, unspecified laterality Hypersomnia Hypersomnia, unspecified Sleep disturbance Sleep disturbance, unspecified Activity intolerance Other general symptoms Chronic fatigue and malaise Chronic fatigue syndrome Anxiety and depression Dysthymic disorder Mood changes Unspecified episodic mood disorder Brain fog Difficulty concentrating Attention or concentration deficit Memory changes Memory loss Cognitive communication deficit Post-acute sequelae of COVID-19 (PASC) [facility]* Diagnosis Low serum potassium- Primary Abnormal laboratory test result Other abnormal clinical finding [facility]* Diagnosis Diffuse pain- Primary Generalized pain Chronic fatigue and malaise Chronic fatigue syndrome Brain fog Post-acute sequelae of COVID-19 (PASC) Memory deficit Memory loss [facility]* Diagnosis Paresthesia- Primary Disturbance of skin sensation Burning sensation Disturbance of skin sensation documented in this encounter [facility] general Narrative - Reported* Type Description Date Medical History insomnia Medical History migraine headache Medical History anxiety Medical History psoriasis Syndero Other History general Narrative - Reported* Type Description Date Medical History insomnia Medical History migraine headache Medical History anxiety Medical History psoriasis Surgical History Problem Title : Hemorrhoidectom y, Problem Status : Active, Surgical History Problem Title : No p revious surgery, Problem Status : Inactive, 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: Hemorrhoidectomy, Problem Status : Inactive, Surgical History Problem Title : past surgical history reviewed, Problem Description : past surgical history reviewed, Problem Comment : reviewed - no changes required, Problem Status : Active, Surgical History Problem Title : surg ical procedures, hx of, Problem Description : surgical procedures, hx of, Problem Comment : hemorroidectomy 2006, Problem Status : Active, Syndero Other Summary Purpose Family History Relationship Condition Age at Onset Recorded Date/T chuck Not Specified Hypertension Unknown Family history of mental disorder Unknown Malignant neoplasm Unknown Advance Directives Advance Directive Response Recorded Date/ Time Advance Directives No January 18, 2017 11:16am Reason for Referral Specialty Diagnoses / Procedures Referred By Thais crandall Referred To Contact Diagnoses Hypersomnia Sleep disturbance Chronic fatigue and malaise Post-acute sequelae of COVID-19 (PASC) Procedures CONSULT TO SLEEP MEDICINE - ADULT OFFICE/OUTPATIENT [facility] 60 MINUTES Rui San, LEVI.SIGNALMAN [address] [place] [address] Referral ID Status Reason Start Date Expiration Date Visits Requested Visits Authorized [id number] Authorized PCP Requested Referral 4 01/24/2025 1 1 Specialty Diagnoses / Procedures Referred By Thais crandall Referred To Contact Neurology Diagnoses Diffuse pain Nerve pain Burning sensation Post-acute sequelae of COVID-19 (PASC) Procedures CONSULT TO NEUROLOGY OFFICE/OUTPATIENT [facility] 60 MINUTES Rui San APRN.SIGNALMAN [address] [place] [address] Referral ID Status Reason Start Date Expiration Date Visits Requested Visits Authorized [id number] Authorized PCP Requested Referral 4 01/24/2025 1 1 Specialty Diagnoses / Procedures Referred By Thais crandall Referred To Contact Diagnoses Diffuse pain Chronic fatigue and malaise Brain fog Post-acute sequelae of COVID-19 (PASC) Procedures CONSULT TO WELLNESS PHYSICIAN OFFICE/OUTPATIENT [facility] 60 MINUTES Rui San, SIEBEL ARCHITECT.SIGNALMAN [address] [place] [address] Referral ID Status Reason Start Date Expiration Date Visits Requested Visits Authorized [id number] Authorized PCP Requested Referral 4 01/24/2025 1 1 Specialty Diagnoses / Procedures Referred By Thais crandall Referred To Contact Rheumatology Diagnoses Diffuse pain Nerve pain Burning sensation Pain in joint, multiple sites Arm heaviness Hip pain, unspecified laterality Chronic fatigue and malaise Post-acute sequelae of COVID-19 (PASC) Procedures CONSULT TO RHEUM/IMMUN DISEASE OFFICE/OUTPATIENT [facility] 60 MINUTES Rui San APRN.SIGNALMAN [address] [place] [address] Referral ID Status Reason Start Date Expiration Date Visits Requested Visits Authorized [id number] Authorized PCP Requested Referral 4 01/24/2025 1 1 Reason CLOSED-pt to call to schedule [facility] - brain fog and fatigue after COVID. Diagnosis 1 Brain fog (R41.89) Referral Organization [facility] yennifer Referring Provider First Name Mindi Referring Provider Last Name Viviana Referring Provider Specialty Family [facility] Referred Organization [facility] Referred Provider Melisa Elise Referred Address [address] [place], [place],[address] Referred Provider Specialty Neurology Referral Priority Routine General Notes Magda Strong 01:16:35 PM >received today, sent P2P Magda Strong 07/13/2022 10:55:20 AM >faxed first attempt letter Magda Strong 07/14/2022 08:52:35 AM >received fax back that 2 messages were left with pt. no return call. will still follow up Magda Strong 07/19/2022 10:17:30 AM >received fax back that 3 messages were left, they will hold referral open for one year, and then close out. Pt is to call to schedule if needed. TE sent for review. CLosing referral Chief Complaint and Reason for Visit Chief Complaint Amb Documentation discussion on medications Reason for Visit Adult ADHD Chief Complaint Amb Documentation discussion on medications Medication follow up Reason for Visit Adult ADHD Adult ADHD Additional Source Comments Reason for Visit (unrecogniz ed section and content) Reason Comments Generalized Body Aches all sx onset Frid ay Fatigue Reason Comments Refill Request Reason Comments Follow Up Anxiety Reason Onset Date Comments Refill Request Refill Request 08/30/2022 Reason Comments Appointment Reason Comments Consult Post covid symptoms Reason Comments Wellness Specialty Diagnoses / Procedures Referred By Thais crandall Referred To Contact Diagnoses Diffuse pain Chronic fatigue and malaise Brain fog Post-acute sequelae of COVID-19 (PASC) Procedures CONSULT TO WELLNESS PHYSICIAN OFFICE/OUTPATIENT [facility] 60 MINUTES Rui San, LEVI.SIGNALMAN [address] [place] [address] Referral ID Status Reason Start Date Expiration Date V isits Requested Visits Authorized [id number] Closed PCP Requested Referral 01/25/2024 01/24/2025 1 1 Reason Comments Consult Specialty Diagnoses / Procedures Referred By Thais crandall Referred To Contact Neurology Diagnoses Diffuse pain Nerve pain Burning sensation Post-acute sequelae of COVID-19 (PASC) Procedures CONSULT TO NEUROLOGY OFFICE/OUTPATIENT [facility] 60 MINUTES Rui San, SIEBEL ARCHITECT.SIGNALMAN [address] [place] [address] Referral ID Status Reason Start Date Expiration Date V isits Requested Visits Authorized [id number] Closed PCP Requested Referral 01/25/2024 01/24/2025 1 1 INFORMATION SOURCE (unrecogn ized section and content) DATE CREATED AUTHOR 06/09/2020 [facility] DATE CREATED AUTHOR AUTHOR'S ORGANIZ ATION 09/05/2021 [facility] DATE CREATED AUTHOR AUTHOR'S ORGANIZ ATION 11/24/2021 [facility] DATE CREATED AUTHOR AUTHOR'S ORGANIZ ATION 10/13/2022 [facility] DATE CREATED AUTHOR AUTHOR'S ORGANIZ ATION 01/08/2024 [facility] DATE CREATED AUTHOR AUTHOR'S ORGANIZ ATION 02/06/2024 [facility] Source Comments (unrecognize d section and content) In the event this informatio n is protected by the Federal Confidentiality of Alcohol and Drug Abuse Patient Records regulations: The Federal rules restrict any use of the information to criminally investigate or prosecute any alcohol or drug abuse patient.[facility] the event this information is protected by the Federal Confidentiality of Alcohol and Drug Abuse Patient Records regulations: The Federal rules restrict any use of the information to criminally investigate or prosecute any alcohol or drug abuse patient.[facility] Hospital[facility] the event this information is protected by the Federal Confidentiality of Alcohol and Drug Abuse Patient Records regulations: The Federal rules restrict any use of the information to criminally investigate or prosecute any alcohol or drug abuse patient.[facility] the event this information is protected by the Federal Confidentiality of Alcohol and Drug Abuse Patient Records regulations: The Federal rules restrict any use of the information to criminally investigate or prosecute any alcohol or drug abuse patient.[facility] Hospital[facility] the event this information is protected by the Federal Confidentiality of Alcohol and Drug Abuse Patient Records regulations: The Federal rules restrict any use of the information to criminally investigate or prosecute any alcohol or drug abuse patient.[facility] Hospital[facility] the event this information is protected by the Federal Confidentiality of Alcohol and Drug Abuse Patient Records regulations: The Federal rules restrict any use of the information to criminally investigate or prosecute any alcohol or drug abuse patient.[facility] Hospital[facility] the event this information is protected by the Federal Confidentiality of Alcohol and Drug Abuse Patient Records regulations: The Federal rules restrict any use of the information to criminally investigate or prosecute any alcohol or drug abuse patient.[facility] the event this information is protected by the Federal Confidentiality of Alcohol and Drug Abuse Patient Records regulations: The Federal rules restrict any use of the information to criminally investigate or prosecute any alcohol or drug abuse patient.[facility] Hospital[facility] the event this information is protected by the Federal Confidentiality of Alcohol and Drug Abuse Patient Records regulations: The Federal rules restrict any use of the information to criminally investigate or prosecute any alcohol or drug abuse patient.[facility] Hospital[facility] the event this information is protected by the Federal Confidentiality of Alcohol and Drug Abuse Patient Records regulations: The Federal rules restrict any use of the information to criminally investigate or prosecute any alcohol or drug abuse patient.[facility] Care Teams (unrecognized sec tion and content) Flour Mixer Relationship Specialty Start Date End Date Mindi Michelle MD [address] [place] [phone] PCP - General Family Practice 05/14/15 Aysha Son, SIEBEL ARCHITECT.SIGNALMAN [address] [place] [address] Nurse Practitioner Psychiatry 02/22/20 Flour Mixer Relationship Specialty Start Date End Date Mindi Michelle MD [address] [place] [phone] PCP - General Family Practice 05/14/15 Aysha Son, SIEBEL ARCHITECT.SIGNALMAN [address] [place] [address] Nurse Practitioner Psychiatry 02/22/20 Flour Mixer Relationship Specialty Start Date End Date Mindi Michelle MD [address] [place] [phone] PCP - General Family Medicine 05/14/15 Aysha Son, SIEBEL ARCHITECT.SIGNALMAN [address] [place] [address] Nurse Practitioner Psychiatry 02/22/20 Shaikh Gillespie MD [address] [place] [address] Primary Care 10/08/21 Flour Mixer Relationship Specialty [place] [address] [place] [phone] PCP - General Family Medicine 05/14/15 Aysha Son, SIEBEL ARCHITECT.SIGNALMAN [address] [place] [address] Nurse Practitioner Psychiatry 02/22/20 Shaikh Gillespie MD [address] [place] [address] Primary Care 10/08/21 Team Status: Active Member Role Status Dates Mindi Michelle MD Primary Care Provider Active Team Status: Active Member Role Status Dates Mindi Michelle MD Primary Care Provider Active Start: April 21, 2023 Arianne Rosado Attending Provider Active Start: [facility] 2023 Team Status: Inactive Member Role Status Dates Mindi Michelle MD Primary Care Provide r, Attending Provider Active Start: April 29, 2023 End: April 29, 2023 Team Status: Inactive Member Role Status Dates Mindi Michelle MD Primary Care Provide r, Attending Provider Active Start: June 27, 2023 End: June 27, 2023 Flour Mixer Relationship Specialty Start Date End Date Mindi Michelle MD [address] [place], [place] [phone] PCP - General Family Medicine 05/14/15 Aysha Son, SIEBEL ARCHITECT.SIGNALMAN [address] [place] [phone] Nurse Practitioner Psychiatry 02/22/20 Shaikh Gillespie MD [facility] [place] [address] Primary Care 10/08/21 Flour Mixer Relationship Specialty Start Date End Date Mindi Michelle MD [address] [place] [phone] PCP - General Family Medicine 05/14/15 Aysha Son, SIEBEL ARCHITECT.SIGNALMAN [address] [phone] Nurse Practitioner Psychiatry 02/22/20 Shaikh Gillespie MD [address] [place] [address] Primary Care 10/08/21 Flour Mixer Relationship Specialty Start Date End Date Mindi Michlele MD [address] [place] [place] [phone] PCP - General Family Medicine 05/14/15 Aysha Son, SIEBEL ARCHITECT.SIGNALMAN [address] [place] [address] Nurse Practitioner Psychiatry 02/22/20 Shaikh Gillespie MD [address] [place] [address] Primary Care 10/08/21 Flour Mixer Relationship Specialty Start Date End Date Mindi Michelle MD [address] [place] [phone] PCP - General Family Medicine 05/14/15 Aysha Son, SIEBEL ARCHITECT.SIGNALMAN [address] [place] [address] Nurse Practitioner Psychiatry 02/22/20 Shaikh Gillespie MD [address] [place] [address] Primary Care 10/08/21 Flour Mixer Relationship Specialty Start Date End Date Mindi Michelle MD [address] [place] [phone] PCP - General Family Medicine 05/14/15 Aysha Son, SIEBEL ARCHITECT.SIGNALMAN [address] [place] [address] Nurse Practitioner Psychiatry 02/22/20 Shaikh Gillespie MD [address] [facility] [place] [address] Primary Care 10/08/21 Goals (unrecognized section and content) Goals may be documented in a n alternate section FOR RECORDS PERTAINING TO PATIENTS WHO ARE OR HAVE BEEN ENROLLED IN A CHEMICAL DEPENDENCY/SUBSTANCEABUSE PROGRAM, SOME INFORMATION MAY BE OMITTED. This clinical summary was aggregated from multiple sources. Caution should be exercised in using it in the provision of clinical care. This summary normalizes information from multiple sources, and as a consequence, information in this document may materially change the coding, format and clinical context of patient data. In addition, data may be omitted in some cases. CLINICAL DECISIONS SHOULD BE BASED ON THE PRIMARY CLINICAL RECORDS. [employer] provides no warranty or guarantee of the accuracy or completeness of information in this document.
[2024-02-28 08:53] LABS: Basophils Percent Auto 0.3 % (0.2-2.0); Eosinophils Absolute Auto 0.1 10^3/uL (0.0-0.7); Eosinophils Percent Auto 0.8 % (0.9-7.0); Immature Granulocytes Abs Auto 0.01 10^3/uL (0.00-0.03); Immature Granulocytes Pct Auto 0.2 % (0.0-0.5); Lymphocytes Absolute Auto 2.5 10^3/uL (1.2-3.8); Lymphocytes Percent Auto 39.2 % (20.5-60.0); Mean Corpuscular HGB Conc 34.1 g/dL (29.9-35.2); Mean Corpuscular Hemoglobin 30.4 pg (26.7-34.0); Mean Corpuscular Volume 89.2 fL (81.0-99.0); Monocytes Absolute Auto 0.3 10^3/uL (0.3-0.8); Neutrophils Absolute Auto 3.6 10^3/uL (1.4-6.5); Neutrophils Percent Auto 55.5 % (43.0-75.0); Platelet Count 279 10^3/uL (150-450); Red Blood Count 4.93 10^6/uL (4.20-5.40); Red Cell Distribution Width 12.2 % (11.0-15.0); White Blood Count 6.4 10^3/uL (4.0-11.0)
[2024-02-28] MEDS: 0.9 % SODIUM CHLORIDE 1,000 ML 1000 ML IV (08:55)
[2024-02-28] MEDS: DIPHENHYDRAMINE HCL 50 MG/ML VIAL 25 MG IV (08:55)
[2024-02-28] MEDS: METHYLPREDNISOLONE SOD SUCC PF 125 MG/2 ML VIAL IVP (08:56)
[2024-02-28] MEDS: KETOROLAC TROMETHAMINE 30 MG/ML VIAL IVP (08:56)
[2024-02-28 09:01] LABS: Anion Gap 11.3; BUN Creatinine Ratio 10.8; Calcium 8.6 mg/dL (8.5-10.1); Carbon Dioxide 28.2 mmol/L (21.0-32.0); Chloride 105 mmol/L (98-107); Estimated GFR (African America >60 (>=60 mL/min/1.73m^2); Estimated GFR (Non-African Ame 53 (>=60 mL/min/1.73m^2); Glucose 117 mg/dL (74-106); Potassium 3.5 mmol/L (3.5-5.1); Sodium 141 mmol/L (136-145)
[2024-02-28] MEDS: ONDANSETRON PF 4 MG/2 ML VIAL IV (09:07)
== END 2024-02-28 10:15 | disposition home or self-care (01) ==
PROVIDERS: Emergency Provider Emergency Medicine; PCP Family Medicine
DX: R51.9 Headache, unspecified (principal); Z86.16 Personal history of COVID-19
CPT/HCPCS: 36415; 80048; 85025; 93005; 96374; 96375; 99284; J1200; J1885; J2405; J2919